=== PATIENT | male | born 1965 | race Caucasian/White ===

== ENCOUNTER → 2020-08-01 10:50 | Outpatient (BNVA) | payer OTHER, SELFPAY | PROVIDERS: PCP Internal Medicine; Referring Provider Internal Medicine; Visit Provider Hospitalist | DX: J45.21 Mild intermittent asthma with (acute) exacerbation (principal); G47.33 Obstructive sleep apnea (adult) (pediatric); M54.41 Lumbago with sciatica, right side; Z99.89 Dependence on other enabling machines and devices; Z79.51 Long term (current) use of inhaled steroids | CPT/HCPCS: 99214 ==

== ENCOUNTER 2020-09-08 08:28 | Emergency (ER) | payer OTHER, SELFPAY ==
[2020-09-08 08:38] VITALS: BP 147/102; PULSE 96; RESP 16; O2SAT 98; BMI 33.7
--- NOTE | 2020-09-08 08:52 | CT_ITS ---
EXAMINATION: CT BRAIN, CT CERVICAL SPINE, CT CHEST, ABDOMEN AND PELVIS WITH CONTRAST. CLINICAL INFORMATION: Fall, head trauma. COMPARISON: CT brain 11/02/2010 TECHNIQUE: 5 mm thin axial and reformatted 2 mm thin coronal images of brain were obtained. Axial 3 mm thin and reformatted 2 mm thin sagittal and coronal images of cervical spine were obtained. DLP 1747. 5 mm thin axial and reformatted 3 minutes in sagittal coronal images of chest, abdomen and pelvis were obtained. The DLP 1460. FINDINGS: BRAIN: There is no acute intra-axial, extra-axial bleed, masses or midline shift. There is no acute infarct in evolution. There is a subtle hypodensity subcortical white matter of left centrum semiovale unchanged from CT brain 11/02/2010. Rest of the perirectal white matter appears unremarkable. The lateral ventricles are symmetrical in size and slightly prominent. Bone windows reveal no calvarial abnormality. There is no scalp soft tissue abnormality. Visualized bilateral mastoid and paranasal sinuses are well-aerated. CERVICAL SPINE: On sagittal reconstructed images is maintained cervical lordosis. The vertebral heights, alignment and disc heights are normal. The large bony bar extending along the posterior longitudinal ligament with thick calcification extending from C2 through C6 vertebra. And resulting in mild canal stenosis at C2-C3, C3-C4 moderate canal stenosis C4-C5, mild canal stenosis C5-C6 and C6-C7 disc levels. Also visualized is anterior longitudinal calcifications of C2-C6 vertebra. There is no visible acute fracture, dislocation or subluxation seen. The craniovertebral junction and the C1-C2 alignment is maintained normal. The prevertebral and paravertebral soft tissues are normal. The thyroid lobes are symmetrical and normal. Bilateral and parotid glands are symmetrical and normal. There is bilateral shotty neck lymph nodes seen. CHEST: The lungs are well-expanded and clear of acute pneumonic process. Note consolidation, contusion or mass seen. The heart size and the great vessels are normal caliber. No aortic dissection or aneurysm seen. Central trachea and the bronchi widely patent. The thyroid lobes are symmetrical and normal. No mediastinal mass or lymphadenopathy seen. There is no pleural effusion, thickening or calcification. The axilla and chest wall appears unremarkable. ABDOMEN AND PELVIS: The liver is diffusely attenuated without any focal lesion. No intrahepatic ductal dilatation. Visualized spleen, pancreas and bilateral adrenal glands are unremarkable. Both kidneys are normal size, shape and position. No radiopaque renal calculi, contusion or hydronephrosis seen. There is a 1.5 cm partially exophytic cyst midpole right kidney. The gallbladder is unremarkable. The bowel gas pattern is nonspecific with scattered diverticuli and stool throughout the colon. No distention seen. The small bowel loops are normal caliber. The appendix is not seen with certainty. No free air or free fluid noted. The abdominal wall appears unremarkable. Imaging through the pelvis reveals mildly enlarged prostate gland. Urinary bladder is unremarkable. No abnormal size pelvic or intraperitoneal lymph nodes seen. The abdominal aorta and the common iliac branches are widely patent. Bone windows reveal no lytic or sclerotic process. There is mild ventral spondylosis throughout dorsal and lumbar spine. There is mild degenerative changes bilateral hip joints slightly greater on the right. CT/CT cervical spine wo con IMPRESSION: No acute intracranial process seen. Focal hypodensity left frontal centrum semiovale unchanged since the last CT brain exam 11/02/2010. 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 Moderate ventral bridging osteophyte and constipation of anterior longitudinal ligament from C3 to C6 vertebra. No acute process in the CT chest, abdomen or pelvis. Small partially exophytic cyst midpole right kidney. Moderate ventral spondylosis dorsal and lumbar spine. No compression fractures seen.
--- NOTE | 2020-09-08 08:53 | ECG_ITS ---
Test Reason : FALL Blood Pressure : / mmHG Vent. Rate : 084 BPM Atrial Rate : 084 BPM P-R Int : 136 ms QRS Dur : 076 ms QT Int : 340 ms P-R-T Axes : 052 026 029 degrees QTc Int : 401 ms Sinus rhythm with Premature atrial complexes Otherwise normal ECG When compared to the previous EKG of No significant changes seen Referred By: Josefa George Electronically Signed By:TONY ALLEN MD
[2020-09-08] MEDS: Morphine Sulfate 2 MG/ML CARTRIDGE IVPUSH ×2 (09:06→10:30)
[2020-09-08 09:24] LABS: MANUAL DIFF FLAG NO
[2020-09-08 09:26] LABS: Basophils Percent Auto 0.3 % (0-2); Eosinophils Absolute Auto 0.1 X10*3/uL (0.0-0.4); Eosinophils Percent Auto 0.8 % (0-4); Hematocrit 39.8 % (42-52); Hemoglobin 13.8 g/dl (14.0-18.0); Imm Gran Abs Auto 0.01 X10*3/uL (0.00-0.03); Imm Gran Pct Auto 0.1 % (0.0-0.4); Lymphocytes Absolute Auto 1.2 X10*3/uL (1.2-4.9); Lymphocytes Percent Auto 13.5 % (20-40); Mean Corpuscular HGB Conc 34.7 g/dl (31.0-36.0); Mean Corpuscular Hemoglobin 29.4 pg (27.0-33.0); Mean Corpuscular Volume 84.7 fL (80-98); Mean Platelet Volume 8.8 fL (9.4-12.4); Monocytes Absolute Auto 0.6 X10*3/uL (0.1-1.2); Monocytes Percent Auto 6.8 % (2-11); Neutrophils Absolute Auto 7.1 X10*3/uL (2.0-8.3); Neutrophils Percent Auto 78.5 % (45-73); Platelet Count 231 X10*3/uL (160-400); Red Cell Distribution Width 12.7 % (11.0-16.0)
[2020-09-08 09:36] LABS: INTERNATIONAL NORM RATIO 1.1 (0.9-1.1); Prothrombin Time 12.6 SEC (10.8-13.0)
--- NOTE | 2020-09-08 09:38 | ED.FALL ---
HPI - Fall General Chief Complaint: Fall Stated Complaint: FALL,HEAD/BACK/CHEST PAIN Time Seen by Provider: 09/08/20 08:31 Source: EMS Mode of arrival: EMS History of Present Illness HPI Narrative: 54-year-old male with a past medical history of asthma, chronic back pain, sciatica, LEVI on CPAP, CVA with left-sided residual deficits, c/o headache, neck/back pain, CP, & abdominal pain s/p fall [employer]. Patient reports was standing urinating, reached for walker and fell backwards/legs gave out due to sciatic pain. Reports fell backwards, hit head, ?LOC, does not remember entire incident. Takes ASA daily. Has been unable to ambulate since incident. Reports CP increased with breathing. Denies symptoms prior to fall including CP/SOB/lightheadedness/dizziness. Denies nausea/vomiting, urinary incontinence/retention. At baseline ambulates with walker complaint: fall Onset (ago): minute(s) Related Data Home Medications Medication Instructions Recorded Confirmed albuterol sulfate mg INHALATION Q6H PRN 08/01/20 08/01/20 albuterol sulfate 90 mcg/actuation 0 mcg INHALATION 08/01/20 08/01/20 aerosol inhaler ascorbic acid (vitamin C) 500 mg 0 mg PO 08/01/20 08/01/20 tablet aspirin 81 mg tablet,delayed 81 mg PO DAILY 08/01/20 08/01/20 release bupropion HCl 300 mg 24 hr tablet, 300 mg PO QAM 08/01/20 08/01/20 extended release cyclobenzaprine 5 mg tablet mg PO Q8H PRN 08/01/20 08/01/20 dicyclomine 10 mg capsule 10 mg PO Q6H PRN 08/01/20 08/01/20 fluticasone propionate 110 0 mcg INHALATION 08/01/20 08/01/20 mcg/actuation HFA aerosol inhaler lisinopril 20 1 tab PO DAILY 08/01/20 08/01/20 mg-hydrochlorothiazide 25 mg tablet lorazepam 0.5 mg tablet 0.5 mg PO BID PRN 08/01/20 08/01/20 memantine 10 mg tablet 10 mg PO BID 08/01/20 08/01/20 metformin 1,000 mg tablet 1,000 mg PO BID 08/01/20 08/01/20 naproxen 500 mg tablet 500 mg PO BID 08/01/20 08/01/20 oxycodone 5 mg tablet 0 mg PO 08/01/20 08/01/20 pravastatin 40 mg tablet 40 mg PO BEDTIME 08/01/20 08/01/20 propranolol 40 mg tablet 40 mg PO DAILY PRN 08/01/20 08/01/20 sennosides 8.6 mg tablet 17.2 mg PO BID 08/01/20 08/01/20 trazodone 100 mg tablet 100 mg PO BEDTIME 08/01/20 08/01/20 umeclidinium 62.5 mcg/actuation 0 inh INHALATION 08/01/20 08/01/20 blister powder for inhalation Previous Rx's Medication Instructions Recorded prednisone 10 mg tablet 10 mg PO DAILY #15 tab 08/01/20 simethicone 125 mg chewable tablet 125 mg PO TID PRN 30 Days #90 tab 08/02/20 plecanatide 3 mg tablet 3 mg PO DAILY #30 tab 08/04/20 methylcellulose (laxative) 500 mg 1,000 mg PO BID #120 tab 09/05/20 tablet acetaminophen [Tylenol Extra 500 mg PO Q6H PRN #20 tab 09/08/20 Strength] cyclobenzaprine 5 mg PO Q8H PRN 5 Days #14 tab 09/08/20 lidocaine [Lidoderm] 1 patch TOPICAL DAILY PRN #30 ea 09/08/20 MDD remove after 12 hours naproxen 500 mg PO BID PRN 10 Days #20 tab 09/08/20 Allergies Allergy/AdvReac Type Severity Reaction Status Date / Time Penicillins [PENICILLINS] Allergy Unknown HIVES Verified 08/01/20 20:22 Review of Systems Review of Systems: Constitutional: No Weight loss, No Fever, No Chills ENT/Mouth: No Hearing loss, No Ear Pain, No Nasal Congestion Eyes: No Eye Pain, No Swelling, No Vision Changes Cardiovascular: + Chest Pain, No SOB, No Dyspnea on Exertion, No Orthopnea, No Edema, No Palpitations Respiratory: No Cough, No Sputum, No Wheezing, No Smoke Exposure Gastrointestinal: No Nausea, No Vomiting, No Diarrhea, +Abdominal pain Genitourinary: No Urinary Frequency, No Hematuria,No Urinary Incontinence, No Urgency, No Flank Pain, No Urinary Flow Changes Musculoskeletal: + joint pain, No Myalgias, No Joint Swelling Skin: No Skin Lesions, No rash Neuro: No Weakness, + Numbness, No Paresthesias, + Loss of Consciousness, No Dizziness, + Headache Yes all other systems are reviewed and are negative [facility] Past Medical History Attestation statement: The following information was validated with the patient. Medical History (Updated 09/08/20 @ 16:24 by PHILIP Ulrich) Asthma Back pain LEVI on CPAP Family History Family History (Updated 08/01/20 @ 20:23 by Kieran Mcnamara MD) Son No problems noted. Social History Social History (Updated 08/01/20 @ 11:22 by Gabby Dodge MA) Alcohol intake: never Smoking Status: Never smoker Use of substances other than those prescribed or required for medical reasons: No Advance Directives: No Advance Directives Information Provided: No Physical Exam Vital Signs: Vital Signs: Last Vital Signs Temp 97.6 F 09/08/20 15:16 Pulse 87 09/08/20 15:16 Resp 16 09/08/20 15:16 BP 116/72 09/08/20 15:16 Pulse Ox 98 09/08/20 15:16 Body Mass Index 33.7 Const: Other: in pain General: cooperative and healthy appearing Orientation/consciousness: patient oriented x3 Limitations: no limitations HENMT: Head: Yes normal to inspection and Yes No palpable skull fracture present Ears: hearing grossly normal bilaterally General nose exam: Normal external nose present Face and sinus: Yes normal facial exam Mouth: Normal oral and palatal mucosa present Throat: Yes posterior oropharynx normal and Yes uvula midline Eyes: General: appearance normal, both eyes and all related structures Pupils: Equal, round and reactive pupils present EOM: EOMs intact bilaterally Neck: Other: C-collar in place. + midline cervical spinous tenderness Neck: Yes normal visual inspection and Yes no meningeal signs Chest: Other: + nonlocalized bilateral anterior chest tenderness and sternal chest ttp, no crepitus or deformity Chest palpation & inspection: normal inspection of the chest and no crepitus Resp: Effort & Inspection: normal respiratory effort Cardio: Rate: regular rate Heart sounds: S1 normal heart sound present and S2 normal heart sound present Peripheral pulses: Peripheral pulses 2+ throughout GI: Inspection: Yes normal to inspection Palpation (GI): Soft to palpation, Tenderness to palpation present (GI) in the epigastrum, in the RLQ and in the LUQ, no guarding and not rigid Back/Spine/Pelvis: Other: No midline lumbar spinous tenderness. + midline upper thoracic ttp with swelling noted Skin: Rashes: no rashes Wounds: no wounds Neuro: Other: +LUE and LLE with decreased strength (baseline L sided weakness from prior CVA-reportedly worse than baseline per patient) +LLE decreased sensation to light touch (worse than baseline deficits from CVA per patient) No saddle anesthesia General: patient oriented x3, tone normal, no meningeal signs, no focal motor deficits and CN's II-XI intact bilaterally Cranial nerves: Yes Equal, round and reactive pupils present Cognition (Neuro): normal cognition Coordination: [id number] test normal Extrem: Other: pelvis stable General: Yes normal to inspection Course Course Course Narrative: -labs unremarkable, initial troponin 3.8 > will obtain 3 hour repeat -Head CT and C-spine CT w/o acute findings -no acute process in the CT chest abdomen or pelvis > imaging results discussed with patient in sign language interpreter. Patient is still reporting a lot of pain. Will give pain medication, obtain PT/case management evaluation -patient was evaluated by physical therapy recommended STR. luncheonette manager working on placement. Patient sitting more comfortably in the ED after muscle relaxer -2nd troponin negative. Patient now refusing STR. Will DC home. Son is coming to pick him up from ED. Case management set up home PT MDM - Fall MDM Narrative Medical decision making narrative: 54-year-old male with a past medical history of asthma, chronic back pain, sciatica, LEVI on CPAP, CVA with left-sided residual deficits, c/o headache, neck/back pain, CP, & abdominal pain s/p fall [employer],+ hit head, ?LOC. On exam hypertensive, in pain, midline cervical/thoracic spinous tenderness noted, chest wall tenderness, abdomen soft with diffuse tenderness, physical exam as above. Bedside FAST negative for FF. Concern for fractures vs ICH vs intra-abdominal injury. Rule out cord compression, low concern for cauda equina. Rule out metabolic/infectious etiology Plan: EKG, labs,, pain management, reassess Lab Data Result diagrams: 09/08/20 09:18 09/08/20 09:18 Labs: Lab Results 09/08/20 09/08/20 09/08/20 Range/Units 09:18 09:18 09:18 WBC 9.0 (4.8-10.8) X10*3/uL RBC 4.70 (4.60-5.80) X10*6/uL Hgb 13.8 L (14.0-18.0) g/dl Hct 39.8 L (42-52) % MCV 84.7 (80-98) fL MCH 29.4 (27.0-33.0) pg MCHC 34.7 (31.0-36.0) g/dl RDW 12.7 (11.0-16.0) % Plt Count 231 (160-400) X10*3/uL MPV 8.8 L (9.4-12.4) fL Immature Gran % (Auto) 0.1 (0.0-0.4) % Neut % (Auto) 78.5 H (45-73) % Lymph % (Auto) 13.5 L (20-40) % Stanley % (Auto) 6.8 (2-11) % Eos % (Auto) 0.8 (0-4) % Baso % (Auto) 0.3 (0-2) % Lymph # (Auto) 1.2 (1.2-4.9) X10*3/uL Stanley # (Auto) 0.6 (0.1-1.2) X10*3/uL Eos # (Auto) 0.1 (0.0-0.4) X10*3/uL Baso # (Auto) 0.0 (0.0-0.2) X10*3/uL Abs Immat Gran (auto) 0.01 (0.00-0.03) X10*3/uL Absolute Neuts (auto) 7.1 (2.0-8.3) X10*3/uL Absolute Nucleated RBC 0.000 (0.0-0.012) X10*3/uL Nucleated RBC % (auto) 0.0 (0.0-0.2) /100WBC PT 12.6 (10.8-13.0) SEC INR 1.1 (0.9-1.1) APTT 30.2 (24.1-38.0) SEC Sodium 136 (135-145) mmol/L Potassium 4.3 (3.3-5.1) mmol/l Chloride 97 (96-108) mmol/L Carbon Dioxide 30 H (22-29) mmol/L Anion Gap 13 (12-20) BUN 20 H (9-16) mg/dL Creatinine 0.94 (0.5-1.4) mg/dL Estim Creat Clear Calc 93.6 Estimated GFR > 60 Random Glucose 132 H (60-115) mg/dL Calcium 9.3 (8.4-10.2) mg/dL Magnesium (1.6-2.6) mg/dL Total Bilirubin 1.4 H (0.0-1.0) mg/dL Direct Bilirubin 0.5 (0.0-0.5) mg/dL AST 21 (5-37) U/L ALT 29 (0-40) U/L Alkaline Phosphatase 36 L (39-117) U/L Troponin I High Sens (<3.5-35.0) ng/L Total Protein 7.2 (6.5-8.0) g/dL Albumin 4.5 (3.5-5.0) g/dL Lipase 23 (8-78) U/L COVID-19 (ANDREINA) (Negative) COVID-19 Clin Com 09/08/20 09/08/20 09/08/20 Range/Units 09:18 09:18 14:20 WBC (4.8-10.8) X10*3/uL RBC (4.60-5.80) X10*6/uL Hgb (14.0-18.0) g/dl Hct (42-52) % MCV (80-98) fL MCH (27.0-33.0) pg MCHC (31.0-36.0) g/dl RDW (11.0-16.0) % Plt Count (160-400) X10*3/uL MPV (9.4-12.4) fL Immature Gran % (Auto) (0.0-0.4) % Neut % (Auto) (45-73) % Lymph % (Auto) (20-40) % Stanley % (Auto) (2-11) % Eos % (Auto) (0-4) % Baso % (Auto) (0-2) % Lymph # (Auto) (1.2-4.9) X10*3/uL Stanley # (Auto) (0.1-1.2) X10*3/uL Eos # (Auto) (0.0-0.4) X10*3/uL Baso # (Auto) (0.0-0.2) X10*3/uL Abs Immat Gran (auto) (0.00-0.03) X10*3/uL Absolute Neuts (auto) (2.0-8.3) X10*3/uL Absolute Nucleated RBC (0.0-0.012) X10*3/uL Nucleated RBC % (auto) (0.0-0.2) /100WBC PT (10.8-13.0) SEC INR (0.9-1.1) APTT (24.1-38.0) SEC Sodium (135-145) mmol/L Potassium (3.3-5.1) mmol/l Chloride (96-108) mmol/L Carbon Dioxide (22-29) mmol/L Anion Gap (12-20) BUN (9-16) mg/dL Creatinine (0.5-1.4) mg/dL Estim Creat Clear Calc Estimated GFR Random Glucose (60-115) mg/dL Calcium (8.4-10.2) mg/dL Magnesium 1.6 (1.6-2.6) mg/dL Total Bilirubin (0.0-1.0) mg/dL Direct Bilirubin (0.0-0.5) mg/dL AST (5-37) U/L ALT (0-40) U/L Alkaline Phosphatase (39-117) U/L Troponin I High Sens 3.8 < 3.5 (<3.5-35.0) ng/L Total Protein (6.5-8.0) g/dL Albumin (3.5-5.0) g/dL Lipase (8-78) U/L COVID-19 (ANDREINA) (Negative) COVID-19 Clin Com 09/08/20 Range/Units 15:19 WBC (4.8-10.8) X10*3/uL RBC (4.60-5.80) X10*6/uL Hgb (14.0-18.0) g/dl Hct (42-52) % MCV (80-98) fL MCH (27.0-33.0) pg MCHC (31.0-36.0) g/dl RDW (11.0-16.0) % Plt Count (160-400) X10*3/uL MPV (9.4-12.4) fL Immature Gran % (Auto) (0.0-0.4) % Neut % (Auto) (45-73) % Lymph % (Auto) (20-40) % Stanley % (Auto) (2-11) % Eos % (Auto) (0-4) % Baso % (Auto) (0-2) % Lymph # (Auto) (1.2-4.9) X10*3/uL Stanley # (Auto) (0.1-1.2) X10*3/uL Eos # (Auto) (0.0-0.4) X10*3/uL Baso # (Auto) (0.0-0.2) X10*3/uL Abs Immat Gran (auto) (0.00-0.03) X10*3/uL Absolute Neuts (auto) (2.0-8.3) X10*3/uL Absolute Nucleated RBC (0.0-0.012) X10*3/uL Nucleated RBC % (auto) (0.0-0.2) /100WBC PT (10.8-13.0) SEC INR (0.9-1.1) APTT (24.1-38.0) SEC Sodium (135-145) mmol/L Potassium (3.3-5.1) mmol/l Chloride (96-108) mmol/L Carbon Dioxide (22-29) mmol/L Anion Gap (12-20) BUN (9-16) mg/dL Creatinine (0.5-1.4) mg/dL Estim Creat Clear Calc Estimated GFR Random Glucose (60-115) mg/dL Calcium (8.4-10.2) mg/dL Magnesium (1.6-2.6) mg/dL Total Bilirubin (0.0-1.0) mg/dL Direct Bilirubin (0.0-0.5) mg/dL AST (5-37) U/L ALT (0-40) U/L Alkaline Phosphatase (39-117) U/L Troponin I High Sens (<3.5-35.0) ng/L Total Protein (6.5-8.0) g/dL Albumin (3.5-5.0) g/dL Lipase (8-78) U/L COVID-19 (ANDREINA) Negative (Negative) COVID-19 Clin Com See Note Discharge Plan Discharge Clinical Impression: Atypical chest pain, Back pain, Acute neck pain, Fall Patient Disposition: Home, Self-Care Instructions: Musculoskeletal Pain (ED) Additional Instructions: [facility] [address] [address] Your blood work and imaging studies were unremarkable today in the ED YOU NEED TO FOLLOW-UP WITH A SPINE DOCTOR Your pain is likely musculoskeletal Flexeril is a muscle relaxer, take at night as it makes you drowsy, do not drive, drink alcohol, or operate machinery while taking it Naproxen as an anti-inflammatory / pain medication, take with food Lidoderm patches are numbing patches, apply to painful area In addition take Tylenol at home If symptoms persist or worsen, pain becomes unbearable, you developed urinary retention or incontinence, or weakness return to the ED Dannielle an?lisis de martin y estudios de im?genes no fueron notables hoy en el servicio de urgencias NECESITA SEGUIMIENTO CON UN M?DICO DE COLUMNA Es probable que hall dolor sea musculoesquel?cas Flexeril es un relajante muscular, t?santana por la noche ya que le produce somnolencia, no conduzca, no martinez alcohol ni maneje maquinaria mientras lo jose. Naproxeno mary medicamento antiinflamatorio / analg?sico, lori con alimentos. Los parches de Lidoderm son parches adormecedores, se aplican al ?jovanny dolorida Adem?s, tome Tylenol en casa. Si los s?ntomas persisten o empeoran, el dolor se vuelve insoportable, desarroll? retenci?n urinaria o incontinencia o debilidad regrese al servicio de urgencias Prescriptions: New acetaminophen [Tylenol Extra Strength] 500 mg tablet 500 mg PO Q6H PRN (Reason: pain or fever) Qty: 20 RF: 0 lidocaine [Lidoderm] 5 % adhesive patch,medicated 1 patch topical DAILY MDD remove after 12 hours PRN (Reason: pain) Qty: 30 RF: 0 naproxen 500 mg tablet 500 mg PO BID PRN (Reason: pain) 10 Days Qty: 20 RF: 0 cyclobenzaprine 5 mg tablet 5 mg PO Q8H PRN (Reason: pain (scale score 7-10)) 5 Days Qty: 14 RF: 0 No Action simethicone 125 mg tablet,chewable 125 mg PO TID PRN (Reason: abdominal distention) 30 Days Qty: 90 RF: 3 plecanatide [Trulance] 3 mg tablet 3 mg PO DAILY Qty: 30 RF: 1 methylcellulose (laxative) [Fiber Laxative (methylcellulo)] 500 mg tablet 1,000 mg PO BID Qty: 120 RF: 1 Incruse Ellipta 62.5 mcg/actuation blister with device 0 inh inhalation RF: 0 albuterol sulfate 90 mcg/actuation HFA aerosol inhaler 0 mcg inhalation RF: 0 ascorbic acid (vitamin C) 500 mg tablet 0 mg PO RF: 0 bupropion HCl 300 mg tablet extended release 24 hr 300 mg PO QAM RF: 0 Flovent HFA 110 mcg/actuation HFA aerosol inhaler 0 mcg inhalation RF: 0 dicyclomine 10 mg capsule 10 mg PO Q6H PRNRF: 0 metformin 1,000 mg tablet 1,000 mg PO BID RF: 0 trazodone 100 mg tablet 100 mg PO BEDTIME RF: 0 lorazepam 0.5 mg tablet 0.5 mg PO BID PRNRF: 0 propranolol 40 mg tablet 40 mg PO DAILY PRNRF: 0 lisinopril-hydrochlorothiazide 20-25 mg tablet 1 tab PO DAILY RF: 0 pravastatin 40 mg tablet 40 mg PO BEDTIME RF: 0 cyclobenzaprine 5 mg tablet PO Q8H PRN (Reason: muscle spasm) RF: 0 oxycodone 5 mg tablet 0 mg PO RF: 0 memantine 10 mg tablet 10 mg PO BID RF: 0 aspirin 81 mg tablet,delayed release (DR/EC) 81 mg PO DAILY RF: 0 albuterol sulfate 2.5 mg /3 mL (0.083 %) solution for nebulization inhalation Q6H PRNRF: 0 sennosides 8.6 mg tablet 17.2 mg PO BID RF: 0 naproxen 500 mg tablet 500 mg PO BID RF: 0 prednisone 10 mg tablet 10 mg PO DAILY Qty: 15 RF: 0 Referrals: [facility] [Outside] - 2 days Lit Salinas MD [Primary Care Provider] - 2 days Print Language: Marshallese
[2020-09-08 09:39] LABS: Partial Thromboplastin Time 30.2 SEC (24.1-38.0)
[2020-09-08 10:00] LABS: Alanine Aminotransferase 29 U/L (0-40); Albumin Level 4.5 g/dL (3.5-5.0); Alkaline Phosphatase 36 U/L (39-117); Anion Gap 13 (12-20); Aspartate Amino Transferase 21 U/L (5-37); Bilirubin Direct 0.5 mg/dL (0.0-0.5); Bilirubin Total 1.4 mg/dL (0.0-1.0); Blood Urea Nitrogen 20 mg/dL (9-16); Calcium 9.3 mg/dL (8.4-10.2); Carbon Dioxide 30 mmol/L (22-29); Chloride 97 mmol/L (96-108); Creatinine Clr Calc Pharmacy 93.6; Estimated Glomerular Filt Rate > 60; Glucose Random 132 mg/dL (60-115); Lipase 23 U/L (8-78); Magnesium 1.6 mg/dL (1.6-2.6); Potassium 4.3 mmol/l (3.3-5.1); Sodium 136 mmol/L (135-145); Total Protein 7.2 g/dL (6.5-8.0)
[2020-09-08 10:03] LABS: Troponin-I High Sensitivity 3.8 ng/L (<3.5-35.0)
[2020-09-08] MEDS: Acetaminophen 325 MG TABLET 650 MG PO ×2 (10:30→13:44)
[2020-09-08 10:39] VITALS: BP 137/84; PULSE 86; RESP 18; O2SAT 97
[2020-09-08] MEDS: iohexoL 350 MG/ML 100 ML INFUS..BTL IV (12:08)
--- NOTE | 2020-09-08 13:12 | MHC.CM.ED ---
Obtained [facility] PASRR letter. [facility] has auth. Patient can leave at 2pm. [facility] booked. [facility] with chart. Attempted to notify patient. He is currently sleeping. NAVJOT King and Mars MONTOYA aware. Continue to monitor for d/c needs.
[2020-09-08] MEDS: Lidocaine 4 % Patch ADH..PATCH 1 PATCH TRANSDERMA (13:44)
[2020-09-08] MEDS: Cyclobenzaprine HCl 10 MG TABLET PO (13:44)
[2020-09-08] MEDS: Ketorolac Tromethamine 15 MG/ML VIAL IVPUSH (13:44)
[2020-09-08 14:25] VITALS: BP 137/84; PULSE 86; O2SAT 97
[2020-09-08 15:10] LABS: Troponin-I High Sensitivity < 3.5 ng/L (<3.5-35.0)
[2020-09-08 15:16] VITALS: BP 116/72; PULSE 87; RESP 16; TEMP 36.4; O2SAT 98
[2020-09-08 15:44] LABS: COVID-19 Test Negative (Negative); IDNOW Serial# 9DD0AD1C
--- NOTE | 2020-09-08 15:44 | MHC.CM.ED ---
Patient came to ER after a fall at home. Worl up essentially negative. Physical therapy eval completed. Short term rehab is recommended. Met with patient and park interpreter. Patient lives with his , ambulates with a walker, and has a BOXING AND PRESSING SUPERVISOR from [facility] via [facility]. PCP verified. Patient denies having a HCP. Information provided. Patient not interested in completing one at this time. Patient is requesting to go home. He will have his son transport him home. Spoke with Krysta at [facility]. They will authorize [facility] for [facility]. [facility] [place] Patient, Josefa PALACIOS and Mars MONTOYA aware. Continue to monitor for d/c needs.
--- NOTE | 2020-09-09 10:52 | MHC.CM.ED ---
After patient was discharged, [facility] notified [facility]w that they would not be able accept patient at this time. Referral broadcasted in allscripts. [facility] was going to accept patient. However, he hasn't seen his PCP since April. He has an appointment scheduled with his PCP on 09/20. [facility] will follow up with PCP after that appointment to start services.
== END 2020-09-08 17:13 | disposition home or self-care (01) ==
PROVIDERS: Physician Assistant; Emergency Provider Emergency Medicine; PCP Internal Medicine
DX: R07.89 Other chest pain (principal); M54.2 Cervicalgia; M54.5 Low back pain; Z91.81 History of falling; Z20.828 Contact with and (suspected) exposure to other viral communicable diseases; Z79.899 Other long term (current) drug therapy
CPT/HCPCS: 36415; 70450; 71260; 72125; 74177; 80048; 80076; 83690; 83735; 84484; 85025; 85610; 85730; 87635; 93005; 96374; 96375; 96376; 97161; 99284; J1885; J2270; Q9967

== ENCOUNTER → 2020-09-22 08:36 | Outpatient (BNVA) | payer OTHER, SELFPAY | PROVIDERS: PCP Internal Medicine; Visit Provider Nurse Practitioner | DX: Z13.89 Encounter for screening for other disorder (principal) | CPT/HCPCS: Q3014 ==

== ENCOUNTER → 2020-11-18 09:44 | Outpatient (BNVA) | payer OTHER, SELFPAY | PROVIDERS: PCP Internal Medicine; Visit Provider Nurse Practitioner | DX: Z76.89 Persons encountering health services in other specified circumstances (principal) | CPT/HCPCS: Q3014 ==

== ENCOUNTER → 2021-01-30 13:57 | Outpatient (BNVA) | payer OTHER, SELFPAY | PROVIDERS: PCP Internal Medicine; Visit Provider Hospitalist | DX: J45.21 Mild intermittent asthma with (acute) exacerbation (principal); G47.33 Obstructive sleep apnea (adult) (pediatric); Z99.89 Dependence on other enabling machines and devices; Z79.899 Other long term (current) drug therapy | CPT/HCPCS: 99212 ==

== ENCOUNTER 2021-03-14 08:01 | Outpatient (REF) | payer OTHER, SELFPAY | END 2021-03-14 08:02 | disposition home or self-care (01) | LOC: HO.LAB 08:01 | PROVIDERS: PCP Internal Medicine; Visit Provider Nurse Practitioner Family | DX: G89.4 Chronic pain syndrome (principal); M51.36 Other intervertebral disc degeneration, lumbar region; M96.1 Postlaminectomy syndrome, not elsewhere classified; Z79.891 Long term (current) use of opiate analgesic | CPT/HCPCS: 99212 ==

== ENCOUNTER → 2021-03-28 08:17 | Outpatient (BNVA) | payer OTHER, SELFPAY | PROVIDERS: PCP Internal Medicine; Visit Provider Nurse Practitioner Family | DX: K58.2 Mixed irritable bowel syndrome (principal); K21.9 Gastro-esophageal reflux disease without esophagitis; D12.6 Benign neoplasm of colon, unspecified; R14.0 Abdominal distension (gaseous); M51.36 Other intervertebral disc degeneration, lumbar region; M96.1 Postlaminectomy syndrome, not elsewhere classified; G89.4 Chronic pain syndrome | CPT/HCPCS: 99212; Q3014 ==

== ENCOUNTER → 2021-04-14 11:10 | Outpatient (BNVA) | payer OTHER, SELFPAY | PROVIDERS: PCP Internal Medicine; Visit Provider Nurse Practitioner Family | DX: M51.36 Other intervertebral disc degeneration, lumbar region (principal); M96.1 Postlaminectomy syndrome, not elsewhere classified; G89.4 Chronic pain syndrome | CPT/HCPCS: Q3014 ==

== ENCOUNTER → 2021-05-11 10:43 | Outpatient (BNVA) | payer OTHER, SELFPAY | PROVIDERS: PCP Internal Medicine; Referring Provider Internal Medicine; Visit Provider Nurse Practitioner | DX: K58.2 Mixed irritable bowel syndrome (principal); K21.9 Gastro-esophageal reflux disease without esophagitis; R14.0 Abdominal distension (gaseous); D12.6 Benign neoplasm of colon, unspecified | CPT/HCPCS: 99212 ==

== ENCOUNTER 2021-05-25 15:54 | Emergency (ER) | payer OTHER, SELFPAY ==
--- NOTE | ~2021-05-25 | XR_ITS ---
EXAMINATION: XR CHEST CLINICAL INFORMATION: Chest pain. COMPARISON: Chest radiographs dated 05/30/2020. TECHNIQUE: Frontal view of the chest was obtained. FINDINGS: No significant abnormality is noted involving the heart, lungs, mediastinum, bony thorax or soft tissues. There are postoperative changes of the left lower cervical spine. XR/XR chest 1V IMPRESSION: No active cardiopulmonary disease
--- NOTE | ~2021-05-25 | CT_ITS ---
EXAMINATION: CT HEAD WITHOUT CONTRAST CLINICAL INFORMATION: New visual changes, numbness of left side of head. COMPARISON: 09/08/[address] TECHNIQUE: Contiguous axial imaging was performed from the skull base to vertex without intravenous administration of contrast. Coronal and sagittal reformatted images were obtained. This CT examination was performed using dose optimization techniques as appropriate, variously including the following: *Automated exposure control *Adjustment of mA and/or kV according to patient size (this includes techniques or standardized protocols for targeted exams where dose is matched to indication/reason for exam; i.e. extremities or head) *Use of iterative reconstruction technique DLP: 931.84 mGy-cm FINDINGS: There is no evidence of acute intracranial hemorrhage or territorial infarction. No abnormal mass effect or midline shift is seen. [place] to white matter differentiation is well preserved. No extra-axial fluid collections are identified. The ventricles are normal in size. There is no abnormal attenuation within the brain parenchyma. The osseous structures and soft tissues are normal. The mastoid air cells and visualized portions of the paranasal sinuses are well aerated. CT/CT head/brain wo con IMPRESSION: No acute intracranial pathology. Please refer to the report from the CTA of the head from today for more detailed findings.
--- NOTE | ~2021-05-25 | CT_ITS ---
EXAMINATION: CT ANGIOGRAM HEAD CT ANGIOGRAM NECK CLINICAL INFORMATION: Numbness along the left side of head and left arm. History of cerebrovascular accident. COMPARISON: CT head from 05/25/2021. Brain MRI from 02/02/2010. CT neck from 12/12/2007. TECHNIQUE: Initial noncontrast game farm helper imaging of the head and neck was performed. Comparison is made with noncontrast head CT from earlier today. Test bolus sequences followed by intravenous administration 70 mL of Omnipaque 350. Helical imaging was performed in the axial plane from the aortic arch to the skull vertex. The data was processed at the system technologist's workstation for generation of MIP sequences. Angled MIPs and volume rendered reformatted images were also generated at an offline 3D workstation. Stenoses are assessed in accordance with NASCET criteria unless otherwise indicated. This CT examination was performed using dose optimization techniques as appropriate, variously including the following: *Automated exposure control. *Adjustment of mA and/or kV according to patient size (this includes techniques or standardized protocols for targeted exams where dose is matched to indication/reason for exam; i.e. extremities or head). *Use of iterative reconstruction technique. DLP: 2518 mGy-cm FINDINGS: CT Head: There is no evidence of acute intracranial hemorrhage or edematous territorial infarction. A few foci of hypoattenuation in the periventricular and deep white matter are consistent with mild microangiopathy. Madison-white matter differentiation is preserved. The ventricles are normal in size and configuration. No evidence for obstructive hydrocephalus. No abnormal mass effect or midline shift. No extra-axial fluid collections. No pathologic intra-axial arterial enhancement. No acute soft tissue or osseous abnormalities. Multifocal maxillary and mandibular odontogenic an intimal ulcerations and periapical lucencies. Moderate mucosal thickening of the paranasal sinuses. The mastoid air cells and middle ear cavities are clear. CT Neck: The thyroid gland and remaining cervical soft tissues are within normal limits. Changes of right-sided C4, C6, and C7 hinge laminoplasties. Changes of right-sided C5 hemilaminectomy. Extensive ossification of the posterior longitudinal ligament again demonstrated from C2-T2. Moderately prominent bridging anterior thoracic kyphosis at C3-C7. The demonstrated acute fracture or traumatic subluxation of the cervical spine. CT Upper Chest: The visualized lung apices and upper mediastinum are within normal limits. Neck CTA: Aortic Arch: Normal contour and caliber. Classic 3 vessel branching pattern of the aortic arch. Great Vessel Origins: No significant stenosis of the branch origins. Right Common Carotid Artery: No focal stenosis or occlusion. Cervical Right Internal Carotid Artery: Normal opacification without focal stenosis or occlusion. Left Common Carotid Artery: No focal stenosis or occlusion. Cervical Left Internal Carotid Artery: Normal opacification without focal stenosis or occlusion. Cervical Right Vertebral Artery: Dominant. No focal stenosis or occlusion. Cervical Left Vertebral Artery: No focal stenosis or occlusion. Brain CTA: Intracranial Internal Carotid Arteries: No focal stenosis or occlusion. Sessile aneurysm along the superior margin of the proximal petrous segment of the left ICA, measuring 1 cm long by 0.4 cm in depth (image [id number]). Right Anterior Cerebral Artery: The A1 segment is diminutive. Normal opacification of the distal ELIOT segments. Left Anterior Cerebral Artery: Normal A1 segment. Normal opacification of the distal ELIOT segments. Anterior Communicating Artery: Normal. Right Middle Cerebral Artery: Normal M1 segment of the MCA without focal stenosis or occlusion. Normal arborization of the distal segments. Left Middle Cerebral Artery: Normal M1 segment of the MCA without focal stenosis or occlusion. Normal arborization of the distal segments. Right Vertebral Artery: Normal V4 segment. Normal opacification of the proximal segments of the posterior inferior cerebellar artery. Left Vertebral Artery: Diminutive V4 segment. Normal opacification of the proximal segments of the posterior inferior cerebellar artery. Basilar Artery: Normal without focal stenosis or occlusion. Normal appearance of the proximal superior cerebellar arteries. Right Posterior Cerebral Artery: Normal P1 segment. Normal opacification of the distal CD MANUFACTURING SUPERVISOR segments. Left Posterior Cerebral Artery: Normal P1 segment. Normal opacification of the distal CD MANUFACTURING SUPERVISOR segments. CT/CT angio head neck stroke IMPRESSION: 1. CTA of the head and neck without proximal occlusion or flow-limiting stenosis. 2. The brain parenchyma is better evaluated on concurrent CT of the head. Within the limitations of this exam, there is no evidence of new intracranial hemorrhage or abnormal mass effect. Mild underlying microangiopathy. 3. 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 Posterior decompression of C4-C7 with right-sided change laminoplasties. 4. 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 This appears relatively unchanged compared to exam from 2008. This critical result was discussed with PHILIP Stevens at 20:01 on 05/25/2021 and it was ascertained that the content and urgency of the report was understood at the time of direct communication.
[2021-05-25 16:27] VITALS: BP 155/124; PULSE 86; RESP 16; TEMP 37.1; O2SAT 98; BMI 33.5
[2021-05-25 16:57] VITALS: BP 166/101; PULSE 83; RESP 16; TEMP 36.3; O2SAT 97
[2021-05-25 17:02] LABS: MANUAL DIFF FLAG NO
[2021-05-25 17:08] LABS: Basophils Percent Auto 0.3 % (0-2); Eosinophils Absolute Auto 0.1 X10*3/uL (0.0-0.4); Eosinophils Percent Auto 0.7 % (0-4); Hematocrit 38.3 % (42-52); Hemoglobin 13.2 g/dl (14.0-18.0); Imm Gran Abs Auto 0.03 X10*3/uL (0.00-0.03); Imm Gran Pct Auto 0.3 % (0.0-0.4); Lymphocytes Absolute Auto 1.2 X10*3/uL (1.2-4.9); Mean Corpuscular HGB Conc 34.5 g/dl (31.0-36.0); Mean Corpuscular Hemoglobin 28.5 pg (27.0-33.0); Mean Corpuscular Volume 82.7 fL (80-98); Monocytes Absolute Auto 0.8 X10*3/uL (0.1-1.2); Monocytes Percent Auto 7.7 % (2-11); Neutrophils Absolute Auto 8.1 X10*3/uL (2.0-8.3); Platelet Count 243 X10*3/uL (160-400); Red Blood Count 4.63 X10*6/uL (4.60-5.80); White Blood Count 10.3 X10*3/uL (4.8-10.8)
[2021-05-25 17:38] LABS: Anion Gap 18 (12-20); Blood Urea Nitrogen 15 mg/dL (9-16); Calcium 9.4 mg/dL (8.4-10.2); Carbon Dioxide 24 mmol/L (22-29); Chloride 100 mmol/L (96-108); Creatinine Clr Calc Pharmacy 110.7; Estimated Glomerular Filt Rate > 60; Glucose Random 70 mg/dL (60-115); Potassium 4.5 mmol/L (3.3-5.1); Sodium 137 mmol/L (135-145)
[2021-05-25 17:45] LABS: Troponin-I High Sensitivity < 3.5 ng/L (<3.5-35.0)
--- NOTE | 2021-05-25 19:01 | ED.CHESTPAIN ---
HPI - Chest Pain General Chief Complaint: Chest Pain Stated Complaint: chest pain Time Seen by Provider: 05/25/21 17:48 Source: patient Mode of arrival: EMS Limitations: language barrier History of Present Illness HPI narrative: 55-year-old male presents with intermittent chest pressure for the last 3 days. Patient also has left arm tingling and heaviness since yesterday. Patient also has tingling on the left side of the top of his head. States he has had blurry vision for the last 3 days. The chest pressure comes and goes, and the episodes lasts for about half an hour. He is diaphoretic, with nausea, and shortness of breath during the episodes. He also experiences palpitations during the episodes. Patient has had chest pain since October due to surgery of his back. However, this chest pain feels different. Chest pressure is worse with exertion. Patient reports even just taking a few steps makes him have chest pressure. Patient also has a history of CVA, and reports feeling weaker on his left side. However, this left arm tingling is new since yesterday. No new neck pain, no new weakness. Patient states he is chronically weak on the left side because of the CVA. Patient has past medical history of HTN, HLD, DM, chronic pain, post-laminectomy syndrome, DISH, GERD, back pain MD complaint: chest pain Onset (ago): day(s) (3) Prior episodes: No Onset: during rest and during exertion Pain location: substernal Pain radiation: left arm Quality: tightness Relieving factors: rest Exacerbating factors: exertion Associated symptoms: diaphoresis and palpitations Treatment prior to arrival: none Risk Factors Coronary artery disease risk factors: diabetes, hyperlipidemia and hypertension Related Data Home Medications Medication Instructions Recorded Confirmed aspirin 81 mg tablet,delayed 81 mg PO DAILY 08/01/20 05/11/21 release bupropion HCl 300 mg 24 hr tablet, 300 mg PO QAM 08/01/20 05/11/21 extended release lisinopril 20 1 tab PO DAILY 08/01/20 05/11/21 mg-hydrochlorothiazide 25 mg tablet lorazepam 0.5 mg tablet 0.5 mg PO BID PRN 08/01/20 05/11/21 memantine 10 mg tablet 10 mg PO BID 08/01/20 05/11/21 metformin 1,000 mg tablet 1,000 mg PO BID 08/01/20 05/11/21 pravastatin 40 mg tablet 40 mg PO BEDTIME 08/01/20 05/11/21 propranolol 40 mg tablet 40 mg PO DAILY PRN 08/01/20 05/11/21 trazodone 100 mg tablet 100 mg PO BEDTIME 08/01/20 05/11/21 albuterol sulfate 90 mcg/actuation 2 inh INHALATION Q8H g 03/28/21 05/11/21 aerosol inhaler fluticasone propionate 110 110 mcg INHALATION BID g 03/28/21 05/11/21 mcg/actuation HFA aerosol inhaler naloxone 4 mg/actuation nasal 4 mg INTRANASAL Q2M PRN 03/28/21 05/11/21 spray (Narcan) umeclidinium 62.5 mcg/actuation 1 inh INHALATION DAILY ea 03/28/21 05/11/21 blister powder for inhalation Previous Rx's Medication Instructions Recorded acetaminophen 500 mg tablet 500 mg PO Q6H PRN #20 tab 09/08/20 (Tylenol Extra Strength) cyclobenzaprine 5 mg tablet 5 mg PO Q8H PRN 5 Days #14 tab 09/08/20 naproxen 500 mg tablet 500 mg PO BID PRN 10 Days #20 tab 09/08/20 budesonide-formoterol HFA 160 2 puff INHALATION BID 30 Days 01/30/21 mcg-4.5 mcg/actuation aerosol #10.2 g inhaler (Symbicort) gabapentin 300 mg capsule 600 mg PO BEDTIME 30 Days #60 cap 01/30/21 pantoprazole 40 mg tablet,delayed 40 mg PO DAILY #90 tab 03/28/21 release ascorbic acid (vitamin C) 500 mg 500 mg PO DAILY #90 tab 04/28/21 tablet ascorbic acid (vitamin C) 500 mg 500 mg PO Q12H #60 tab 05/07/21 tablet,extended release simethicone 180 mg capsule 180 mg PO QID 30 Days #120 cap 05/11/21 Allergies Allergy/AdvReac Type Severity Reaction Status Date / Time Penicillins [PENICILLINS] Allergy Unknown HIVES Verified 05/11/21 10:55 Review of Systems Constitutional: Constitutional: Denies chills, Denies fever(s) and Denies headache(s) Eyes: Eyes: Reports blurry vision, Reports change in vision, Denies photophobia and Denies spots in vision ENT: Denies otalgia, Denies headache(s), Denies nasal congestion, Denies nasal discharge and Denies sore throat Cardiovascular: Cardiovascular: Reports chest pain, Reports chest pain at rest, Reports chest pain with activity, Denies syncope, Denies pedal edema, Denies leg edema, Denies lightheadedness, Denies Loss of Consciousness, Reports palpitations and Reports dyspnea Respiratory: Respiratory: Denies chest congestion, Denies cough and Reports dyspnea Gastrointestinal: Gastrointestinal: Denies abdominal pain, Denies melena, Denies hematochezia, Denies coffee ground emesis, Denies diarrhea, Reports nausea and Denies vomiting Genitourinary: Genitourinary: Reports no additional male genitourinary complaints Musculoskeletal: Musculoskeletal: Reports back pain (chronic), Reports numbness and Reports tingling Integumentary/Breasts: Skin/Breast: Denies erythema and Denies rash Neurologic: Reports Abnormal speech present, Denies syncope, Denies headache(s), Denies focal weakness, Reports numbness, Reports Sensory deficit (Neuro) and Reports tingling Psychiatric: Psychiatric: Reports no additional psychiatric complaints Endocrine: Endocrine: Reports palpitations PMFSH Past Medical History Medical History Asthma Back pain LEVI on CPAP Surgical History History of back surgery (~10/2020) History of esophagogastroduodenoscopy (EGD) Hx of colonoscopy Family History Family History Son No problems noted. Father Stomach cancer Mother Cancer Heart problem Brother Cancer Social History Social History Household Members: Spouse Alcohol intake: never Patient Tobacco Use Status: Never used Tobacco Advance Directives: No Advance Directives Information Provided: No Physical Exam Vital Signs: Vital Signs: Last Vital Signs Temp 97.9 F 05/25/21 20:00 Pulse 76 05/25/21 20:00 Resp 15 05/25/21 20:00 BP 155/94 H 05/25/21 20:00 Pulse Ox 99 05/25/21 20:00 Body Mass Index 33.5 Const: General: cooperative, alert and awake Nutritional Appearance: obese centrally obese Orientation/consciousness: patient oriented x3 Limitations: language barrier HENMT: Head: Yes normal to inspection, Yes No palpable skull fracture present, Yes normocephalic and No scalp tenderness Ears: hearing grossly normal bilaterally and external ears normal General nose exam: Normal external nose present Face and sinus: Yes normal facial exam Mouth: Normal oral and palatal mucosa present Throat: Yes posterior oropharynx normal Eyes: Alignment and Position: alignment normal Conjunctivae: conjunctivae normal Pupils: Equal, round and reactive pupils present EOM: EOMs intact bilaterally and No Nystagmus present Direct Ophthalmoscopy: normal light reflex and No photophobia Neck: Neck: Yes full ROM, Yes no meningeal signs, Yes trachea midline and Yes supple Resp: Effort & Inspection: normal respiratory effort and able to speak in complete sentences Auscultation: clear to auscultation bilaterally, no crackles, no rales, no rhonchi and no wheezes Cardio: Rate: regular rate Rhythm: regular rhythm Heart sounds: S1 normal heart sound present and S2 normal heart sound present GI: Inspection: Yes normal to inspection Palpation (GI): Soft to palpation, nontender, no guarding and not rigid Percussion: Yes normal to percussion Auscultation: normal bowel sounds : General: Yes no CVA tenderness Back/Spine/Pelvis: Back: no CVA tenderness Skin: General skin exam: no rashes or lesions noted and scars (posterior neck) Neuro: Other: 4/5 strength left upper and lower extremities, 5/5 strength upper right and lower right extremities General: patient oriented x3, no meningeal signs and Unable to assess gait Cranial nerves: Yes CN's II-XII intact bilaterally, Yes Facial sensation intact/muscles of mastication intact, Yes Equal, round and reactive pupils present, Yes Bilaterally intact EOM present, Yes Nystagmus not present, Yes Normal facial strength present, Yes Midline tongue present, Yes Ability to bilaterally rotate head present, Yes Ability to bilaterally elevate shoulders present and No Nystagmus present Cognition (Neuro): normal cognition Speech: Abnormal speech present Gait exam (Neuro): Unable to assess gait Sensory Exam: Sensory deficit (Neuro) Deep tendon reflexes (DTR's): Right patellar reflex intensity grade: 1+ and Left patellar reflex intensity grade: 1+ Coordination: [id number] test normal Romberg Test: Negative Pupils: Normal pupillary reactivity/response: bilateral Extrem: General: Yes normal to inspection, Yes full ROM and Yes capillary refill normal Psych: Appearance: grossly normal Affect: normal affect Attitude: cooperative Thought process: Normal thought process present Course Course Course Narrative: 55-year-old male presents for intermittent chest pain for the last 3 days, with numbness and tingling on the left side of his head and his left arm for the last 3 days On exam patient numbness in his left arm, and numbness and tingling on his left side of his head. Patient also has left sided weakness with 4/5 motor strength compared to 5/5 motor strength of patient's right side, and this is NOT NEW, this is s/p CVA. EKG shows sinus tachycardia at 106 with no acute ischemia, patient is mildly hypertensive. Troponin is negative. Chest x-ray is normal. Labs are normal. Gave Tylenol, will do CT head. Patient is tachycardic but not hypoxic. I placed a D-dimer as an add-on lab. D-dimer is negative. CT and CTA shows no large vessel occlusion, no intracranial infarction or hemorrhage, does show very tight spinal canal. Radiologist called and stated this would explain any numbness below the neck but no explanation for numbness above the neck. Pt has been consistently tachycardic in the 110's. On discussion with dispatcher tow truck, patient clarifies that he has had numbness in the left side of his head, but the tingling is new. Consulting Neurology. Discussed with Dr Cantu, Neurology, who felt pt could have outpatient MRI. Pt will also f/u with Cardiology I texted Dr Venegas, Biological Science Aide who will see pt as outpatient MDM - Chest Pain Lab Data Result diagrams: 05/25/21 16:55 05/25/21 16:55 Labs: Lab Results 05/25/21 05/25/21 05/25/21 Range/Units 16:55 16:55 16:55 WBC 10.3 (4.8-10.8) X10*3/uL RBC 4.63 (4.60-5.80) X10*6/uL Hgb 13.2 L (14.0-18.0) g/dl Hct 38.3 L (42-52) % MCV 82.7 (80-98) fL MCH 28.5 (27.0-33.0) pg MCHC 34.5 (31.0-36.0) g/dl RDW 13.0 (11.0-16.0) % Plt Count 243 (160-400) X10*3/uL MPV 9.0 L (9.4-12.4) fL Immature Gran % (Auto) 0.3 (0.0-0.4) % Neut % (Auto) 79.0 H (45-73) % Lymph % (Auto) 12.0 L (20-40) % Childress % (Auto) 7.7 (2-11) % Eos % (Auto) 0.7 (0-4) % Baso % (Auto) 0.3 (0-2) % Lymph # (Auto) 1.2 (1.2-4.9) X10*3/uL Childress # (Auto) 0.8 (0.1-1.2) X10*3/uL Eos # (Auto) 0.1 (0.0-0.4) X10*3/uL Baso # (Auto) 0.0 (0.0-0.2) X10*3/uL Abs Immat Gran (auto) 0.03 (0.00-0.03) X10*3/uL Absolute Neuts (auto) 8.1 (2.0-8.3) X10*3/uL Absolute Nucleated RBC 0.000 (0.0-0.012) X10*3/uL Nucleated RBC % (auto) 0.0 (0.0-0.2) /100WBC PT (9.9-13.0) SEC INR (0.9-1.1) APTT (24.1-38.0) SEC D-Dimer NG/ML Sodium 137 (135-145) mmol/L Potassium 4.5 (3.3-5.1) mmol/L Chloride 100 (96-108) mmol/L Carbon Dioxide 24 (22-29) mmol/L Anion Gap 18 (12-20) BUN 15 (9-16) mg/dL Creatinine 0.81 (0.5-1.4) mg/dL Estim Creat Clear Calc 110.7 Estimated GFR > 60 Random Glucose 70 D (60-115) mg/dL Calcium 9.4 (8.4-10.2) mg/dL Troponin I High Sens < 3.5 (<3.5-35.0) ng/L COVID-19 (ANDREINA) (Negative) COVID-19 Clin Com 05/25/21 05/25/21 05/25/21 Range/Units 19:09 19:09 19:09 WBC (4.8-10.8) X10*3/uL RBC (4.60-5.80) X10*6/uL Hgb (14.0-18.0) g/dl Hct (42-52) % MCV (80-98) fL MCH (27.0-33.0) pg MCHC (31.0-36.0) g/dl RDW (11.0-16.0) % Plt Count (160-400) X10*3/uL MPV (9.4-12.4) fL Immature Gran % (Auto) (0.0-0.4) % Neut % (Auto) (45-73) % Lymph % (Auto) (20-40) % Childress % (Auto) (2-11) % Eos % (Auto) (0-4) % Baso % (Auto) (0-2) % Lymph # (Auto) (1.2-4.9) X10*3/uL Childress # (Auto) (0.1-1.2) X10*3/uL Eos # (Auto) (0.0-0.4) X10*3/uL Baso # (Auto) (0.0-0.2) X10*3/uL Abs Immat Gran (auto) (0.00-0.03) X10*3/uL Absolute Neuts (auto) (2.0-8.3) X10*3/uL Absolute Nucleated RBC (0.0-0.012) X10*3/uL Nucleated RBC % (auto) (0.0-0.2) /100WBC PT 12.9 (9.9-13.0) SEC INR 1.1 (0.9-1.1) APTT 35.4 (24.1-38.0) SEC D-Dimer 215 NG/ML Sodium (135-145) mmol/L Potassium (3.3-5.1) mmol/L Chloride (96-108) mmol/L Carbon Dioxide (22-29) mmol/L Anion Gap (12-20) BUN (9-16) mg/dL Creatinine (0.5-1.4) mg/dL Estim Creat Clear Calc Estimated GFR Random Glucose (60-115) mg/dL Calcium (8.4-10.2) mg/dL Troponin I High Sens (<3.5-35.0) ng/L COVID-19 (ANDREINA) Negative (Negative) COVID-19 Clin Com See Note ECG Data ECG #1: Interpretation: Normal axis, sinus rhythm tachycardic at 1 0 seconds, CO interval 126, QRS 76, QTC 422. No ST elevations or depressions, no T-wave changes. Discharge Plan Discharge Clinical Impression: Trigeminal neuralgia of left side of face Chest pain Qualifiers: Chest pain type: unspecified Qualified Code(s): R07.9 - Chest pain, unspecified Patient Disposition: Home, Self-Care Instructions: Chest Pain (ED) Additional Instructions: Please call Cardiology at [phone] and Neurology at [phone] Please call in both tomorrow, you need follow-up appointments with both specialties within the next week. Neurology will arrange for an outpatient MRI. Please return to the emergency room if you have any weakness on 1 side or the other, if you have any speech changes, facial drooping, worsening chest pain, or any other new or concerning symptoms. Llame a Cardiolog?a al [phone] y a Neurolog?a al [phone] Llame a ambos ma?daniel, necesita citas de seguimiento con ambas especialidades dentro de la pr?xima semana. Neurology organizar? satish resonancia magn?salomón para pacientes ambulatorios. Regrese a la priscilla de emergencias si tiene alguna debilidad en un lado o en el otro, si tiene alg?n cambio en el habla, declive facial, empeoramiento del dolor en el pecho o cualquier otro s?ntoma nuevo o preocupante. Prescriptions: No Action acetaminophen [Tylenol Extra Strength] 500 mg tablet 500 mg PO Q6H PRN (Reason: pain or fever) Qty: 20 RF: 0 naproxen 500 mg tablet 500 mg PO BID PRN (Reason: pain) 10 Days Qty: 20 RF: 0 cyclobenzaprine 5 mg tablet 5 mg PO Q8H PRN (Reason: pain (scale score 7-10)) 5 Days Qty: 14 RF: 0 Narcan 4 mg/actuation spray,non-aerosol 4 mg intranasal Q2M PRNRF: 0 bupropion HCl 300 mg tablet extended release 24 hr 300 mg PO QAM RF: 0 metformin 1,000 mg tablet 1,000 mg PO BID RF: 0 trazodone 100 mg tablet 100 mg PO BEDTIME RF: 0 lorazepam 0.5 mg tablet 0.5 mg PO BID PRNRF: 0 propranolol 40 mg tablet 40 mg PO DAILY PRNRF: 0 lisinopril-hydrochlorothiazide 20-25 mg tablet 1 tab PO DAILY RF: 0 pravastatin 40 mg tablet 40 mg PO BEDTIME RF: 0 memantine 10 mg tablet 10 mg PO BID RF: 0 aspirin 81 mg tablet,delayed release (DR/EC) 81 mg PO DAILY RF: 0 albuterol sulfate 90 mcg/actuation HFA aerosol inhaler 2 inh inhalation Q8H RF: 0 fluticasone propionate 110 mcg/actuation HFA aerosol inhaler 110 mcg inhalation BID RF: 0 umeclidinium 62.5 mcg/actuation blister with device 1 inh inhalation DAILY RF: 0 ascorbic acid (vitamin C) 500 mg tablet 500 mg PO DAILY Qty: 90 RF: 2 ascorbic acid (vitamin C) 500 mg Tablet Extended Release 500 mg PO Q12H Qty: 60 RF: 4 pantoprazole 40 mg tablet,delayed release (DR/EC) 40 mg PO DAILY Qty: 90 RF: 2 simethicone 180 mg capsule 180 mg PO QID 30 Days Qty: 120 RF: 6 budesonide-formoterol [Symbicort] 160-4.5 mcg/actuation HFA aerosol inhaler 2 puff inhalation BID 30 Days Qty: 10.2 RF: 11 gabapentin 300 mg capsule 600 mg PO BEDTIME 30 Days Qty: 60 RF: 3 Referrals: Louis Cantu MD [Physician] - 2 days (left head tingling, pmh CVA, negative CT/CTA) Mikey Venegas MD [Physician] - 2 days (3 dys chest pressure, negative trop, normal ekg) Print Language: Mongolian
[2021-05-25] MEDS: iohexoL 350 MG/ML 100 ML INFUS..BTL IV (19:07)
[2021-05-25 19:11] VITALS: BP 147/89; PULSE 99; RESP 16; O2SAT 99
[2021-05-25] MEDS: Acetaminophen 325 MG TABLET 650 MG PO (19:11)
[2021-05-25] MEDS: 0.9 % Sodium Chloride 1,000 ML 999 ML IV (19:11)
[2021-05-25 19:26] LABS: INTERNATIONAL NORM RATIO 1.1 (0.9-1.1); Prothrombin Time 12.9 SEC (9.9-13.0)
[2021-05-25 19:28] LABS: Partial Thromboplastin Time 35.4 SEC (24.1-38.0)
[2021-05-25 19:36] LABS: COVID-19 Test Negative (Negative); IDNOW Serial# 9DD0AD1C
[2021-05-25 19:39] LABS: D Dimer 215 NG/ML
[2021-05-25 20:00] VITALS: BP 155/94; PULSE 76; RESP 15; TEMP 36.6; O2SAT 99
--- NOTE | 2021-05-25 21:24 | PC.NURSE ---
patient had a tuna sandwich and jingerradha
[2021-05-25 21:50] VITALS: BP 154/91; PULSE 87; RESP 16; TEMP 36.7; O2SAT 99
[2021-05-25] MEDS: Aspirin 325 MG TABLET PO (21:59)
== END 2021-05-25 22:22 | disposition home or self-care (01) ==
PROVIDERS: Physician Assistant; Emergency Provider Emergency Medicine; PCP Internal Medicine
DX: R07.9 Chest pain, unspecified (principal); G50.0 Trigeminal neuralgia; R00.0 Tachycardia, unspecified; I10 Essential (primary) hypertension; E11.9 Type 2 diabetes mellitus without complications; Z79.82 Long term (current) use of aspirin; Z79.899 Other long term (current) drug therapy; Z20.822 Contact with and (suspected) exposure to COVID-19; Z86.73 Personal history of transient ischemic attack (TIA), and cerebral infarction without residual deficits
CPT/HCPCS: 36415; 70450; 70496; 70498; 71045; 80048; 84484; 85025; 85379; 85610; 85730; 87635; 96360; 99284; 99285; Q9967

== ENCOUNTER → 2021-06-21 13:43 | Outpatient (BNVA) | payer OTHER, SELFPAY | PROVIDERS: PCP Internal Medicine; Referring Provider Internal Medicine; Visit Provider Internal Medicine | DX: R07.2 Precordial pain (principal); I10 Essential (primary) hypertension; E11.8 Type 2 diabetes mellitus with unspecified complications; E78.5 Hyperlipidemia, unspecified | CPT/HCPCS: 93005; 99202 ==

== ENCOUNTER → 2021-06-29 14:37 | Outpatient (BNVA) | payer OTHER, SELFPAY | PROVIDERS: PCP Internal Medicine; Visit Provider Hospitalist | DX: J45.21 Mild intermittent asthma with (acute) exacerbation (principal); G47.33 Obstructive sleep apnea (adult) (pediatric); Z99.89 Dependence on other enabling machines and devices | CPT/HCPCS: 99212 ==

== ENCOUNTER → 2021-07-24 10:36 | Outpatient (REF) | payer OTHER, SELFPAY ==
--- NOTE | 2021-07-24 10:44 | CA_ITS ---
Transthoracic Echocardiogram Patient (Last, First, Middle): Sacha Soria, Gender: Male Date of : 1965 Age: 55 Procedure Date: 07/24/2021 Procedure Type: Transthoracic Echocardiogram Location: OP Height: 167.64 cm Weight: 89.81 kg BSA: 1.99 m2 Heart Rate: bpm BP: 137 / 80 mmHg Charge Lpn: PAOLA Referring MD: Beto Monreal MD Symptoms: R07.2 - Precordial pain Study Quality: Fair ECG Rhythm: Sinus Conclusions: - The left ventricular systolic function is normal. The visually estimated ejection fraction is between 60-65%. - There is mild calcification of the aortic valve. - No obvious valvular pathology seen on this study. Findings Procedure Information Contrast agent, definity, is being given per protocol without apparent complications. Left Ventricle Normal left ventricular cavity size. There is mildly increased left ventricular wall thickness. The left ventricular systolic function is normal. The visually estimated ejection fraction is between 60-65%. There is no evidence of regional wall motion abnormalities. Diastolic function is normal for age. Right Ventricle Normal right ventricular cavity size and systolic function. Atria Both atria are normal in size. Aortic Valve There is a normal trileaflet aortic valve. There is mild calcification of the aortic valve. There is no aortic valve stenosis. There is no aortic valve regurgitation. Mitral Valve The mitral valve appears normal. There is no mitral valve regurgitation. There is no mitral valve stenosis. Pulmonic Valve The pulmonic valve was not well visualized. Tricuspid Valve Normal tricuspid valve structure. There is no tricuspid valve regurgitation. The pulmonary artery systolic pressure is normal. Great Vessels The aortic annulus, sinuses of valsalva, and asc aorta are normal in size. Venous The inferior vena cava is normal in size and collapses greater than 50% with inspiration. Pericardium/Pleural There is no evidence of pericardial effusion. Prior Study Comparison No significant change compared to prior study dated: 11/01/2010. Recommendations, Care & Conclusions No obvious valvular pathology seen on this study. Measurements 2D Linear Measurements IVSd: 1.12 0.6-0.9/0.6-1.0 cm LVIDd: 4.32 3.9-5.3/4.2-5.9 cm LVIDd Index: 2.17 2.4-3.2/2.2-3.1 cm/m2 LVIDs: 3.09 2.0-3.6 cm LVPWd: 1.13 0.7-1.1 cm Ao Root: 3.20 2.1-3.5 cm LA Diam: 3.10 2.7-3.8/3.0-4.0 cm LAIDs Index: 1.56 1.5-2.3 cm/m2 LV Mass: 211.09 67-162/88-224 g LV Mass Index: 106.08 43-95/49-115 g/m2 LVOT Diam: 2.00 3.0+(-)1.3 cm 2D Systolic Function EF 4C: 68.70 >55% Mitral Valve MV Pk E: 0.56 MV PK A: 0.81 MV Decel Time: 115.00 E/A: 0.70 E'Lateral: 7.83 E'Medial: 7.62 E/E' Med: 7.30 E/E' Lat: 7.10 PHT: 34.00 MVA PHT: 6.47 Decel Sauk: 4.85 Aortic Valve AoV Pk Keith: 1.41 AoV Pk Grad: 8.00 LVOT LVOT Pk Keith: 0.84 LVOT Mn Keith: 0.53 LVOT VTI: 0.16 LVOT Pk Grad: 3.00 LVOT Mn Grad: 1.00 LVOT Diam: 2.00 LVOT Area: 3.14 Diastolic Function MV Pk E: 0.56 MV Pk A: 0.81 E/A: 0.70 E'Medial: 7.62 E/E' Med: 7.30 E' Laterial: 7.83 E/E' Lat: 7.10 Right Ventricle TAPSE (mm): 2.19 Tricuspid Valve TR Pk Keith: 2.20 TR Pk Grad: 19.00 RA Press: 3.00 RVSP: 22.00 Great Vessels Aorta Ao Root-2D: 3.20 2.0-3.7 cm Ao Asc: 3.40 2.1-3.4 cm Updated in Other Vendor System with Status of Final Beto Monreal MD electronically signed on 07/24/2021 12:13:17 PM with status of Final
== END ==
LOC: HO.CARD 10:36
PROVIDERS: PCP Internal Medicine; Visit Provider Internal Medicine
DX: R07.2 Precordial pain (principal)
CPT/HCPCS: 93306; Q9957

== ENCOUNTER → 2021-08-21 14:02 | Outpatient (BNVA) | payer OTHER, SELFPAY | PROVIDERS: PCP Internal Medicine; Referring Provider Internal Medicine; Visit Provider Internal Medicine | DX: R07.2 Precordial pain (principal); E78.5 Hyperlipidemia, unspecified; E11.8 Type 2 diabetes mellitus with unspecified complications; I10 Essential (primary) hypertension | CPT/HCPCS: 93005; 99212 ==

== ENCOUNTER → 2021-09-11 08:00 | Outpatient (REF) | payer OTHER, SELFPAY ==
--- NOTE | ~2021-09-11 | NM_ITS ---
Lexiscan Myocardial perfusion study Indication: Chest pain, assess for coronary disease ischemia Technique: The patient was brought in for a Lexiscan perfusion study on 09/11/2021 and was injected 0.4 mg of Lexiscan intravenously. Within a minute of this injection 30 mCi of sestamibi was given intravenously. Images were obtained using the SPECT gamma camera interlaced with the gating device. Images were obtained in supine position. Resting perfusion study was performed on 09/14/2021. Patient was administered 30 mCi of sestamibi intravenously at rest. Images were then obtained in supine position. Total DLP 110mGy-cm. Images were processed with the software and compared side to side in short axis, horizontal long axis and vertical long axis views. Findings: Raw acquisition was reviewed. The stress perfusion study showed slightly diminished tracer uptake in the distal part of anterior wall. No significant change with CT attenuation correction. The gated study shows diminished LV systolic function with calculated LVEF of 46%. LV cavity is normal in size. The gated study shows normal wall thickening and contraction of segments. Resting study shows no significant perfusion abnormality. Gating at rest reveals normal wall motion with ejection fraction at 44%. The findings are consistent with small reversible distal anterior defect. NM/NM cardiolite stress test Impression: 1. Myocardial perfusion imaging study shows small reversible defect in the distal anterior wall, but with normal contractility on gating. Could be a small area of ischemia but could also be artifactual. 2. Gated LVEF is 40% during stress and 44% during rest. Correlate with echocardiogram. 3. Transient ischemic dilatation not present. EKG component of the test reported separately.
--- NOTE | 2021-09-11 08:04 | CA_ITS ---
Acquisition Time: 2021-09-11 08:22:16 Total Exercise Time: 00:02:00 Test Indications: Chest Pain Medications: SEE H+P Protocol: LEXISCAN Max HR: 136 BPM 82% of Pred: 165 BPM Max BP: 136/080 mmHG Max Work Load: 1.0 METS Pharmacological stress test with lexiscan injection, while sitting and kicking his legs, with report of 3/10 mid chest discomfort at baseline then with 5/10 anterior chest burning post injection, with isolated PVC, with normotenisive response to injection, with nondiagnostic EKG for ischemia. At 5 min 50 sec recovery he was treated with Aminophylline 75mg IVP to reverse Lexiscan. He continue to have his baseline 3/10 chest discomfort which he states is always there . Nuclear images pending. Test reviewed with Dr Valdovinos. Referred By: Beto Monreal Overread By: KATRIN CANO
== END ==
LOC: HO.CARD 08:00
PROVIDERS: Visit Provider Internal Medicine
DX: R07.2 Precordial pain (principal); I20.9 Angina pectoris, unspecified
CPT/HCPCS: 78452; 93017; A9500; J0280; J2785

== ENCOUNTER → 2021-09-20 13:47 | Outpatient (BNVA) | payer OTHER, SELFPAY | PROVIDERS: PCP Internal Medicine; Referring Provider Internal Medicine; Visit Provider Nurse Practitioner Family | DX: R07.2 Precordial pain (principal); R94.39 Abnormal result of other cardiovascular function study; I10 Essential (primary) hypertension; E78.5 Hyperlipidemia, unspecified; E11.8 Type 2 diabetes mellitus with unspecified complications | CPT/HCPCS: 99212 ==

== ENCOUNTER → 2021-10-24 13:49 | Outpatient (BNVA) | payer OTHER, SELFPAY | PROVIDERS: PCP Internal Medicine; Referring Provider Internal Medicine; Visit Provider Nurse Practitioner Family | DX: R07.2 Precordial pain (principal); R94.39 Abnormal result of other cardiovascular function study; I10 Essential (primary) hypertension; E78.5 Hyperlipidemia, unspecified; E11.8 Type 2 diabetes mellitus with unspecified complications; Z79.899 Other long term (current) drug therapy | CPT/HCPCS: 99212 ==

== ENCOUNTER → 2021-12-21 14:32 | Outpatient (BNVA) | payer OTHER, SELFPAY | PROVIDERS: PCP Internal Medicine; Visit Provider Hospitalist | DX: G47.33 Obstructive sleep apnea (adult) (pediatric) (principal); J45.21 Mild intermittent asthma with (acute) exacerbation; Z79.899 Other long term (current) drug therapy; Z99.89 Dependence on other enabling machines and devices | CPT/HCPCS: 99212 ==

== ENCOUNTER 2021-12-26 09:02 | Outpatient (REF) | payer OTHER, SELFPAY ==
[2021-12-26 09:38] LABS: MANUAL DIFF FLAG NO
[2021-12-26 10:02] LABS: Basophils Percent Auto 0.3 % (0-2); Eosinophils Absolute Auto 0.1 X10*3/uL (0.0-0.4); Eosinophils Percent Auto 1.4 % (0-4); Hemoglobin 12.5 g/dl (14.0-18.0); Imm Gran Abs Auto 0.03 X10*3/uL (0.00-0.03); Imm Gran Pct Auto 0.3 % (0.0-0.4); Lymphocytes Absolute Auto 1.7 X10*3/uL (1.2-4.9); Lymphocytes Percent Auto 18.6 % (20-40); Mean Corpuscular HGB Conc 33.8 g/dl (31.0-36.0); Mean Corpuscular Hemoglobin 28.8 pg (27.0-33.0); Mean Corpuscular Volume 85.3 fL (80.0-98.0); Mean Platelet Volume 9.2 fL (9.4-12.4); Monocytes Absolute Auto 0.6 X10*3/uL (0.1-1.2); Neutrophils Absolute Auto 6.6 x10*3/uL (2.0-8.3); Neutrophils Percent Auto 72.4 % (45-73); Platelet Count 238 X10*3/uL (160-400); Red Blood Count 4.34 X10*6/uL (4.60-5.80); Red Cell Distribution Width 12.7 % (11.0-16.0); White Blood Count 9.1 X10*3/uL (4.8-10.8)
[2021-12-26 10:13] LABS: INTERNATIONAL NORM RATIO 1.1 (0.9-1.1)
[2021-12-26 10:53] LABS: Anion Gap 14 (12-20); Blood Urea Nitrogen 16 mg/dL (9-16); Calcium 9.6 mg/dL (8.4-10.2); Carbon Dioxide 28 mmol/L (22-29); Chloride 101 mmol/L (96-108); Estimated Glomerular Filt Rate > 60; Glucose Random 102 mg/dL (60-115); Potassium 4.7 mmol/L (3.3-5.1); Sodium 138 mmol/L (135-145)
== END 2021-12-26 09:03 | disposition home or self-care (01) ==
LOC: HO.LAB 09:02
PROVIDERS: PCP Internal Medicine; Visit Provider Nurse Practitioner Family
DX: R94.39 Abnormal result of other cardiovascular function study (principal)
CPT/HCPCS: 36415; 80048; 85025; 85610

== ENCOUNTER → 2022-01-18 12:43 | Outpatient (BNVA) | payer OTHER, SELFPAY | PROVIDERS: PCP Internal Medicine; Referring Provider Internal Medicine; Visit Provider Nurse Practitioner Family | DX: R07.2 Precordial pain (principal); R94.39 Abnormal result of other cardiovascular function study; I10 Essential (primary) hypertension; E78.5 Hyperlipidemia, unspecified; E11.9 Type 2 diabetes mellitus without complications; Z79.899 Other long term (current) drug therapy; Z98.890 Other specified postprocedural states | CPT/HCPCS: 99212 ==

== ENCOUNTER → 2022-02-01 10:24 | Outpatient (BNVA) | payer OTHER, SELFPAY | PROVIDERS: PCP Internal Medicine; Referring Provider Internal Medicine; Visit Provider Nurse Practitioner | DX: K21.9 Gastro-esophageal reflux disease without esophagitis (principal); K58.2 Mixed irritable bowel syndrome; R14.0 Abdominal distension (gaseous) | CPT/HCPCS: 99212 ==

== ENCOUNTER 2022-05-01 09:39 | Outpatient (REF) | payer OTHER, SELFPAY ==
--- NOTE | ~2022-05-01 | US_ITS ---
EXAMINATION: US THYROID CLINICAL INFORMATION: Nontoxic single thyroid nodule. COMPARISON: Thyroid ultrasound 11/04/2014. TECHNIQUE: Linear transducer grayscale and color Doppler examination with attention to the region of the thyroid. FINDINGS: SIZE: Measurements of the thyroid lobes and nodules are given in sagittal, anteroposterior and transverse dimensions respectively. Right Thyroid Lobe: 4.9 x 1.8 x 3.0 cm, volume 14.1 mL. Previously 5.6 x 1.7 x 3.0 cm, volume 14.9 mL. Parenchyma: The gland echotexture is homogeneous. Thyroid vascularity is normal. Left Thyroid Lobe: 4.9 x 2.2 x 3.1 cm, volume 18.0 mL. Previously 5.3 x 2.1 x 2.0 cm, volume 11.6 mL. Parenchyma: The gland echotexture is homogeneous. Thyroid vascularity is normal. Isthmus: 0.3 cm in maximum AP dimension. Previously 0.3 cm. Estimated total number of nodules greater than or equal to 1 cm: 0. Foxing Painter nodules are described as follows: 1. Location: Right mid pole. Size: 0.4 x 0.3 x 0.4 cm, volume 0.03 mL. Previously: Not documented, new. Nodule characteristics: Composition: Solid/almost completely solid (2). Echogenicity: Hypoechoic (2). Shape: Not taller than wide (0). Margins: Smooth (0). Echogenic Foci: None (0). ACR TI-RADS total points: 4 ACR TI-RADS category: 4 2. Location: Right lower pole. Size: 0.7 x 0.7 x 1.0 cm, volume 0.3 mL. Previously: 0.8 x 0.6 x 0.7 cm, volume 0.2 mL. Nodule characteristics: Composition: Solid (2). Echogenicity: Hypoechoic (2). Shape: Not taller than wide (0). Margins: Smooth (0). Echogenic Foci: None (0). ACR TI-RADS total points: 4 ACR TI-RADS category: 4 Significant change in size (>/= 20% in 2 dimensions and minimal increase of 2 mm or 50% or greater increase in volume): None Change in features: None Change in ACR TI-RADS risk category: None available. NODES: No lymphadenopathy is seen in the tissue surrounding the thyroid gland. US/US thyroid IMPRESSION: Bilateral thyroid nodules nonsuspicious. Thyroid gland is otherwise unremarkable. ACR TI-RADS RECOMMENDATION REFERENCE: Ultrasound-guided fine-needle aspiration, followup ultrasound, no further follow up. * TR1 (0 point) and TR 2 (2 points): No FNA or follow up * TR3 (3 points): FNA if more than or equal to 2.5 cm in maximum dimension, followup ultrasound in 1, 3 and 5 years if 1.5 to 2.4 cm in maximum dimension. * TR4 (4-6 points): FNA if more than or equal to 1.5 cm in maximum dimension, followup ultrasound in 1, 2, 3 and 5 years if 1 to 1.4 cm in maximum dimension. * TR5 (more than or equal to 7 points): FNA if more than or equal to 1 cm in maximum dimension, followup ultrasound every year for 5 years if 0.5 to 0.9 cm in maximum dimension. * TR3, TR4 or TR5 nodules that are below the size threshold for follow up receive no follow up.
== END 2022-05-01 09:40 | disposition home or self-care (01) ==
LOC: HO.US 09:39
PROVIDERS: Visit Provider Internal Medicine
DX: E04.1 Nontoxic single thyroid nodule (principal)
CPT/HCPCS: 76536

== ENCOUNTER 2022-09-24 13:54 | Outpatient (REF) | payer OTHER, SELFPAY ==
--- NOTE | ~2022-09-24 | US_ITS ---
EXAMINATION: US SOFT TISSUE HEAD/NECK CLINICAL INFORMATION: Dysphagia, oropharyngeal phase. COMPARISON: Ultrasound thyroid 05/01/2022. TECHNIQUE: Linear transducer grayscale and color Doppler examination of the bilateral neck. FINDINGS: There are some small lymph nodes identified in the neck. For instance in the right neck there is a 0.8 cm node with no concerning features. Otherwise no focal findings. US/US soft tiss head and/or neck IMPRESSION: No suspicious findings in the examined portion of the neck soft tissues.
== END 2022-09-24 13:55 | disposition home or self-care (01) ==
LOC: HO.US 13:54
PROVIDERS: Visit Provider Student in an Organized Health Care Education/Training Program
DX: R13.12 Dysphagia, oropharyngeal phase (principal)
CPT/HCPCS: 76536

== ENCOUNTER → 2023-03-05 14:18 | Outpatient (BNVA) | payer OTHER, SELFPAY | PROVIDERS: PCP Internal Medicine; Referring Provider Internal Medicine; Visit Provider Nurse Practitioner | DX: K58.2 Mixed irritable bowel syndrome (principal); K21.9 Gastro-esophageal reflux disease without esophagitis; Z79.899 Other long term (current) drug therapy | CPT/HCPCS: 99212 ==

== ENCOUNTER → 2023-03-26 14:01 | Outpatient (BNVA) | payer OTHER, SELFPAY | PROVIDERS: PCP Internal Medicine; Visit Provider Hospitalist | DX: G47.33 Obstructive sleep apnea (adult) (pediatric) (principal); J45.21 Mild intermittent asthma with (acute) exacerbation | CPT/HCPCS: 99212 ==

== ENCOUNTER → 2023-04-03 12:37 | Outpatient (BNVA) | payer OTHER, SELFPAY | PROVIDERS: Visit Provider Nurse Practitioner | DX: R11.0 Nausea (principal); R68.81 Early satiety; K59.00 Constipation, unspecified; K21.9 Gastro-esophageal reflux disease without esophagitis | CPT/HCPCS: 99212 ==

== ENCOUNTER → 2023-04-17 07:43 | Outpatient (REF) | payer OTHER, SELFPAY ==
--- NOTE | ~2023-04-17 | NM_ITS ---
EXAMINATION: NM RADIONUCLIDE SOLID FOOD GASTRIC EMPTYING 4-HOUR STUDY CLINICAL INFORMATION: Nausea COMPARISON: None available. TECHNIQUE: A standard meal consisting of 4 oz of Egg Beaters brand tagged with 890 microcuries Tc-99m Sulfur Colloid, 8 oz water and 2 slices of toast with jelly was administered orally to the patient. Images were obtained using a dual head gamma camera in the anterior and posterior projections over of the stomach immediately post ingestion and at hourly intervals up to 4 hours post ingestion. The anterior and posterior counts at each time interval were averaged using the geometric mean and expressed as percentage of the immediate post ingestion counts. FINDINGS: There is good visualization of activity in the stomach immediately post ingestion. As the study progresses, there is good clearance of activity from the stomach and visualization of progressively increasing small bowel activity. By the end of the study, there is almost no retention noted in the stomach. Retention in the stomach at each time interval was: 1 hour 72% (normal 37%-90%) 2 hours 44% (normal 30%-60%) 3 hours 16% 4 hours 3% (normal 0%-10%) NM/NM gastric emptying study IMPRESSION: Normal 4-hour solid food gastric emptying study.
== END ==
LOC: HO.NUCMED 07:43
PROVIDERS: PCP Internal Medicine; Visit Provider Nurse Practitioner
DX: R11.0 Nausea (principal); R68.81 Early satiety
CPT/HCPCS: 78264; A9541

== ENCOUNTER → 2023-05-01 09:17 | Outpatient (REF) | payer OTHER, SELFPAY | LOC: HO.SL 09:17 | PROVIDERS: PCP Internal Medicine; Visit Provider Hospitalist | DX: G47.33 Obstructive sleep apnea (adult) (pediatric) (principal) | CPT/HCPCS: 95806 ==

== ENCOUNTER → 2023-05-01 10:00 | Outpatient (BNV) | payer OTHER, SELFPAY | PROVIDERS: PCP Internal Medicine; Visit Provider Internal Medicine | DX: G47.33 Obstructive sleep apnea (adult) (pediatric) (principal) | CPT/HCPCS: 95806 ==

== ENCOUNTER 2023-05-08 11:04 | Outpatient (REF) | payer OTHER, SELFPAY ==
[2023-05-08 14:12] LABS: Cholesterol 186 mg/dL; HDL Cholesterol 34 mg/dL; LDL Cholesterol Calculated 123 mg/dl; Triglycerides 145 mg/dL
[2023-05-08 14:59] LABS: Reflex LDLD? No
[2023-05-08 17:55] LABS: Creatinine Urine 182.59 mg/dL; Microalbum/Creatinine Ratio Ur 21.9 ug/mg cr
== END 2023-05-08 11:05 | disposition home or self-care (01) ==
LOC: HO.HHCL 11:04
PROVIDERS: Visit Provider Internal Medicine
DX: E78.2 Mixed hyperlipidemia (principal); E11.9 Type 2 diabetes mellitus without complications
CPT/HCPCS: 36415; 80061; 82043

== ENCOUNTER 2023-06-19 11:50 | Outpatient (REF) | payer OTHER, SELFPAY ==
[2023-06-19 13:47] LABS: Anion Gap 11 (12-20); Blood Urea Nitrogen 14 mg/dL (9-16); Calcium 10.1 mg/dL (8.4-10.2); Carbon Dioxide 30 mmol/L (22-29); Chloride 101 mmol/L (96-108); Estimated Glomerular Filt Rate > 60; Glucose Random 124 mg/dL (60-115); Potassium 4.4 mmol/L (3.3-5.1); Sodium 138 mmol/L (135-145)
== END 2023-06-19 11:51 | disposition home or self-care (01) ==
LOC: HO.HHCL 11:50
PROVIDERS: Visit Provider Internal Medicine
DX: I10 Essential (primary) hypertension (principal); K58.2 Mixed irritable bowel syndrome
CPT/HCPCS: 36415; 80048; 99212

== ENCOUNTER 2023-06-19 14:48 | Outpatient (AMB) | payer OTHER, SELFPAY ==
[2023-06-19 14:51] VITALS: BP 157/90; PULSE 87; BMI 28.9
--- NOTE | 2023-06-19 14:51 | MHC.OFFVIS ---
Intake Vital Signs 06/19/23 14:51 Height 5 ft 7 in Weight 184 lb 11.958 oz BMI 28.9 BP 157/90 H Blood Pressure Location Lt brachial Position Sitting Pulse 87 Intake Visit Reasons: Follow up labs Intake Note: Patient presents to in office visit today in 4 weeks follow up of labs. CC: Patient c/o constant LUQ abdominal pain, and nausea. Patient reports that he d/c the Pantoprazole because he was getting really bloated after taking it. Irrigating Pump Operator Required: Yes Irrigating Pump Operator Name: Lisa [facility] [place] inhalation therapy aide Accompanied by: Self / Same As Patient Allergies Penicillins [PENICILLINS] Allergy (Severe, Verified 06/24/23 14:23) HIVES HPI Follow up labs HPI Details Assessment & Plan (1) Nausea: Code(s): R11.0 - Nausea Plan: Citizen [place], Live He did not tolerate the LInzess at 72mcg either r/t diarrhea, so he sensibly stopped it. Now he moves his bowels once daily, but with fecal urgency after his one big meal. This is the change from his prior baseline of constipation. His appetite is very limited and because of this he only eats one meal a day. He has nausea when he eats too large a meal, and has had episode of vomiting. He is diabetic on metformin. Will get GES for now and no other new medications. He is happy with the rabeprazole and simethicone. ROV after GES. (2) Early satiety: Code(s): R68.81 - Early satiety (3) Constipation: Code(s): K59.00 - Constipation, unspecified (4) GERD (gastroesophageal reflux disease): Code(s): K21.9 - Gastro-esophageal reflux disease without esophagitis Orders: Orders NM gastric emptying study Today R11.0 - Nausea, R68.81 - Early satiety GASTRIC EMPTYING STUDY 04/18/23? IMPRESSION: Normal 4-hour solid food gastric emptying study. ? At this point he has had 2- gastric emptying studies and an unremarkable EGD/colonoscopy since 2019. TODAY'S VISIT Citizen [place] #Lisa Cnator I advise him of the results and now over the years we have 2 negative GES and a negative EGD/colonoscopy since 2019. I educate him that nausea can also be from medication side effects, metabolic or neurologic causes and he should work with his PCP to see if any of these are at the root of the cause. He says that taking protonix and aciphex are causign him bloating, but he was not supposed to be taking both of them. He is only to be taking Aciphex and I ask him to get rid of the pantoprazole. Apparently, he gets his meds in a med box and the pantoprazole was not d/c'd. He continues to have IBS-M and I educate him that fiber is the best way to control this. I will send a fiber pill to [facility] and also write this out for him to buy OTC if needed. ROV 6 mos. PFSH Medical History LEVI (obstructive sleep apnea) Other and unspecified hyperlipidemia Essential hypertension Type 2 diabetes mellitus with unspecified complications Back pain LEVI on CPAP Asthma Surgical History History of cardiac cath History of esophagogastroduodenoscopy (EGD) Hx of colonoscopy History of back surgery (~10/2020) Family History Son No problems noted. Father Stomach cancer Mother Cancer Heart problem Brother Cancer Social History Household Members: Spouse Alcohol intake: never Patient Tobacco Use Status: Never used Tobacco Review of Systems Const Denies fatigue, Denies fever(s), Denies night sweats, Denies poor appetite and Denies weight loss Eyes Details: glasses Reports requires corrective lenses ENT Reports Normal hearing present, Denies dysphagia, Denies odynophagia, Denies throat swelling and Denies tongue swelling Card Reports no additional complaints Resp Reports no additional complaints GI Denies abdominal pain, Denies melena, Denies bloating, Denies hematochezia, Reports constipation, Denies GI cramping, Denies dysphagia, Denies excessive flatus, Denies early satiety, Reports heartburn, Reports diarrhea, Reports nausea, Denies odynophagia, Denies vomiting and Denies hematemesis Skin/Breast Denies pruritus, Denies lesions, Denies rash and Denies jaundice Neuro Reports Normal hearing present and Denies Abnormal speech present Endo Denies fatigue Aller/Immun Denies throat swelling and Denies tongue swelling Physical Exam Vital Signs: Last Vital Signs Pulse 87 06/19/23 14:51 BP 157/90 H 06/19/23 14:51 BMI result Body Mass Index 28.9 Const General: cooperative, no acute distress, well developed and well groomed Nutritional Appearance: well nourished and overweight Orientation/consciousness: oriented to person, oriented to place and oriented to time Limitations: language barrier and ambulation with cane HEENT Head: Yes normocephalic and Yes atraumatic Eyes General: appearance normal, both eyes and all related structures Pupils: Equal, round and reactive pupils present Neck Neck: Yes normal visual inspection and Yes no lymphadenopathy Thyroid: Thyroid normal Resp Effort & Inspection: normal respiratory effort and able to speak in complete sentences Auscultation: clear to auscultation bilaterally Cardio Rate: regular rate Rhythm: regular rhythm Heart sounds: Normal, physiologic split S2 sound present Peripheral pulses: radial pulses present and posterior tibial pulses present GI Inspection: No distended, No Abdominal panniculus present and Yes obesity Palpation (GI): Soft to palpation, nontender, no guarding, not rigid and No hepatosplenomegaly present Percussion: Yes normal to percussion Auscultation: normal bowel sounds Rectal Exam - Male: Yes deferred Skin General skin exam: no rashes or lesions noted, turgor normal, skin not dry, no jaundice, No spider nevi and no striae Rashes: no rashes Nails: normal Neuro General: oriented to person, oriented to place and oriented to time Cranial nerves: Yes Equal, round and reactive pupils present and Yes Normal hearing present Speech: No Abnormal speech present Extrem General: Yes normal to inspection, No clubbing, No cyanosis and No edema Psych Appearance: grossly normal and well kempt Mental Status: mental status grossly normal Speech and movement: Normal speech and movement present Affect: normal affect Attitude: cooperative Thought process: Normal thought process present and not confabulating Thought content: Normal thought content present Insight: Limited insight present (Psych) Judgement: Limited judgement present (Psych) Assessment & Plan Assessment & Plan (1) Irritable bowel syndrome with both constipation and diarrhea: Comment: MORE CONSTIPATION DOMINANT BUT MIXED Code(s): K58.2 - Mixed irritable bowel syndrome Plan: Citizen [place] #Lisa Live I advise him of the results and now over the years we have 2 negative GES and a negative EGD/colonoscopy since 2019. I educate him that nausea can also be from medication side effects, metabolic or neurologic causes and he should work with his PCP to see if any of these are at the root of the cause. He says that taking protonix and aciphex are causign him bloating, but he was not supposed to be taking both of them. He is only to be taking Aciphex and I ask him to get rid of the pantoprazole. Apparently, he gets his meds in a med box and the pantoprazole was not d/c'd. He continues to have IBS-M and I educate him that fiber is the best way to control this. I will send a fiber pill to [facility] and also write this out for him to buy OTC if needed. ROV 6 mos. Medications: New calcium polycarbophil (Fiber Laxative (calcium polycarbophil)) 625 mg PO BID 60 tabs 6RF K58.2 - Mixed irritable bowel syndrome Refilled simethicone after meals 180 mg PO QID 120 caps 6RF 30 days K21.9 - Gastro-esophageal reflux disease without esophagitis, R14.0 - Abdominal distension (gaseous) rabeprazole (AcipHex) PLEASE DISREGUARD RX FOR PANTOPRAZOLE 20 mg PO BID 60 tabs 6RF K21.9 - Gastro-esophageal reflux disease without esophagitis Discontinued linaclotide Discontinued Reason: Doctor's Order 72 mcg PO QAM 30 caps 6RF K59.00 - Constipation, unspecified Coding Level of Care Code Est Pt Level 3 (18815) Diagnoses Irritable bowel syndrome with both constipation and diarrhea K58.2
== END 2023-06-19 16:23 | disposition home or self-care (01) ==
PROVIDERS: PCP Internal Medicine; Visit Provider Nurse Practitioner
DX: K58.2 Mixed irritable bowel syndrome (principal)
CPT/HCPCS: 99213

== ENCOUNTER 2023-06-24 14:15 | Outpatient (AMB) | payer OTHER, SELFPAY ==
--- NOTE | 2023-06-24 14:21 | A.OFFVIS_ITS ---
Intake Vital Signs 06/24/23 14:22 Height 5 ft 7 in Weight 184 lb 11.958 oz BMI 28.9 Pulse 89 Pulse Source Pulse Oximeter Pulse Oximetry (%) 97 Oxygen Delivery Method Room Air Intake Visit Reasons: Obstructive sleep apnea Allergies Penicillins [PENICILLINS] Allergy (Severe, Verified 06/24/23 14:23) HIVES HPI HPI Comments History of Present Illness0 Details The patient is a 57-year-old gentleman known history of asthma in addition to obstructive sleep apnea. He has been followed closely by Pulmonary in the past. He has had worsening respiratory symptoms for the last few months. He has also has episodes where he feels significant chest tightness moderate severity. Usually when that happens he has a hard time breathing. He quickly needs to gives have a nebulizer treatment to improve his symptoms. He has is the symptoms are worse now in the summer, but, there also bed in the winter time in other seasons. He has not had any recent pulmonary function studies. He is not aware of having any allergy testing. He does not use inhalers but there hard for him to use. At this point will just focus on nebulized treatments to improve his respiratory capacity. Will need blood work in addition to pulmonary function studies. Patient also has sleep apnea. The sleep apnea therapy has been affecting beneficial. [email or web address]. The patient is here for pulmonary follow-up visit. Overall he is doing well from a respiratory status. He still gets dyspnea on exertion [id number] when going up a flight of stairs. He also feels some chest tightness at times. Would be unreasonable to try some prednisone to try to improve his respiratory status. Right now he can not even do that due to the fact that has significant back pain and sciatica pain. The pain have gotten worse. He also has significant neck discomfort. Still, the CPAP therapy has been effective in beneficial. He does use it every night more than 4 hours a night. He has a fullface mask the seems to be working okay for him. At this point his respiratory status is stable he is going to follow-up with his primary care doctor regarding his sciatic on pain. 01/30/2021 the patient is here for pulmonary follow-up visit. Since we last spoke he had a bad fall in the bathroom resulting in injury to his thoracic spine and also his neck. The patient was admitted to [facility] where he needed emergency surgery. He is now recovering well. After his injury he could not feel his lower extremities and now he is back to walking. He really feels blessed. In the meantime since his injury to his neck is been hard for him to use his CPAP machine. The CPAP therapy has been on comfortable because the strap school right where his surgical scar is. I did provide him with a different mask, nasal gel pillows dream Wear which she was able to tolerate a lot better. He will start using that mask. He has been using the CPAP. The therapy has been affecting beneficial for him. He does use it for more than 4 hours a night. Hopefully with a more comfortable mask he can continue getting the benefits of the machine without hurting his surgical area. His asthma also has been acting up. However is because primarily he has not been able to use inhaled powder therapy after his injury. Therefore will try to improve his respiratory therapy with HFA therapy at this time.Is 06/29/2021 the patient is here for a pulmonary follow-up visit. Overall the patient has been doing well from a respiratory status Until recently when he started developing worsening chest tightness and wheezing. Patient has multiple inhalers. Appears to have a hard time keeping up with all his inhalers and his rescue therapy. Therefore believe that simpler findings regimen to a triple inhaler such as Trelegy will provide better adherence and better response to therapy. The patient also has a rescue inhaler that he can use as needed. In the meantime the CPAP therapy continues to be affecting beneficial. He does use it more than 4 hours a night. Recently he was evaluated in the ER where he underwent a CT scan of his back demonstrating evidence of spinal stenosis so the significant surgical changes trauma changes. He does follow-up at the pain clinic. He is wondering about any of the interventions that he undergo that will provide him some relief. apparently He is already established with the pain clinic here at [place]. 12/21/2021 the patient is here for a pulmonary follow-up visit. Overall he is doing well. He is currently being evaluated from a cardiac standpoint. And will be undergoing a repeat cardiac catheterization soon. In the meantime we tried multiple inhalers including Symbicort and more recently Trelegy. However, he had to stop because they given chest pressure. Therefore will hold off on any additional maintenance inhalers. He seems to tolerate the Flovent and also the short-acting beta agonist that he uses twice a day. Therefore will continue with that regimen for now. In the meantime he continues with CPAP. He does have a dream Station. He needs to register the machine in order to expect to get a replacement for the recall currently going on. The CPAP therapy continues to be affecting beneficial he does use it for more than 4 hours a night. I do not have his machine right now to download. 03/26/2023 the patient is here for pulmonary follow-up visit. He is doing better from a cardiac standpoint. He is also doing well from a respiratory status. He is tolerating the Flovent in his rescue inhaler. The patient is having hard time with sleep. He is waking up with significant daytime drowsiness. His [place] score is elevated 12/24. The patient was not CPAP and was very adherent to the therapy. However, his machine stopped working in his noted that there were cockroaches in the machine and was infested and she became very concerned and she threw away the machine. The machine was older than 5 6 years. He was no longer active with his [employer] company, [email or web address] the time. Therefore I will have him repeat the home sleep study in order to re-evaluate for sleep apnea. If he still is having significant sleep apnea will go ahead and order another CPAP for him. 06/24/2023 the patient is here for a pulmonary follow-up visit. He continues to have significant daytime drowsiness. His [place] score is elevated 11/24. Has a hard time where he is gasping for air from a sound sleep. The patient does have significant daytime drowsiness and also headaches. We did review his sleep study. Appears that he spent almost an hour below 88% and desaturated down to the low 80s. This probably explains his ongoing headache. In addition to that he was tachycardic. The patient also has significant sleep apnea. He has cardiovascular risk factors. The patient understands the CPAP is a very crucial treatment for him to minimize cardiovascular disease specially since he is already having chest discomfort while sleeping and evidence of significant tachycardia and increased physiological stress. He is agreeable to start CPAP at this time. Will set him up with a local [employer] company for him to be fitted with a mask in the equipment. The patient also continues with his respiratory medications. Asthma seems to be fairly good control. PFSH Medical History LEVI (obstructive sleep apnea) Other and unspecified hyperlipidemia Essential hypertension Type 2 diabetes mellitus with unspecified complications Back pain LEVI on CPAP Asthma Surgical History History of cardiac cath History of esophagogastroduodenoscopy (EGD) Hx of colonoscopy History of back surgery (~10/2020) Family History Son No problems noted. Father Stomach cancer Mother Cancer Heart problem Brother Cancer Social History Household Members: Spouse Alcohol intake: never Patient Tobacco Use Status: Never used Tobacco Review of Systems Const Reports daytime sleepiness, Reports difficulty sleeping, Reports headache(s), Denies night sweats and Reports snoring ENT Denies change in voice, Reports headache(s), Denies lip swelling, Denies mouth pain, Reports nasal congestion, Reports nasal discharge and Denies tongue swelling Card Reports chest pain and Reports dyspnea on exertion Resp Reports cough, Reports dyspnea on exertion, Reports snoring and Denies wheezing GI Denies abdominal pain Musc Reports abnormal gait and Reports back pain Neuro Denies Neuro-related abnormal movements, Reports abnormal gait and Reports headache(s) Psych Denies no additional complaints Renato/Lymph Denies easy bleeding and Denies lymphadenopathy Aller/Immun Denies lip swelling, Denies tongue swelling and Denies wheezing Physical Exam Vital Signs: Last Vital Signs Pulse 89 06/24/23 14:22 Pulse Ox 97 06/24/23 14:22 Oxygen Delivery Method Room Air 06/24/23 14:22 BMI result Body Mass Index 28.9 Const General: alert Neck Neck: Yes normal visual inspection, Yes full ROM and Yes no lymphadenopathy Chest Chest palpation & inspection: normal inspection of the chest Resp Auscultation: diminished lung sounds Cardio Rate: regular rate Rhythm: regular rhythm Heart sounds: S1 normal heart sound present and S2 normal heart sound present GI Palpation (GI): Soft to palpation and nontender Auscultation: normal bowel sounds Skin General skin exam: rashes and/or lesions noted Assessment & Plan Assessment & Plan (1) Asthma: Code(s): J45.909 - Unspecified asthma, uncomplicated Qualifiers: Asthma complication type: with acute exacerbation Asthma persistence: intermittent Asthma severity: mild Qualified Code(s): J45.21 - Mild intermittent asthma with (acute) exacerbation (2) LEVI (obstructive sleep apnea): Code(s): G47.33 - Obstructive sleep apnea (adult) (pediatric) (3) Chest pain: Code(s): R07.9 - Chest pain, unspecified Qualifiers: Chest pain type: unspecified Qualified Code(s): R07.9 - Chest pain, unspecified Plan Continue Flovent EKATERINA as needed start APAP chest x-ray if the patient develops recurrent chest pains he needs to seek urgent medical advice specially with his increased cardiovascular risk factors F/U 4-6 months Orders: Orders XR chest 2V Today R07.9 - Chest pain, unspecified Coding Level of Care Code Est Pt Level 4 (04947) Diagnoses Mild intermittent asthma with acute exacerbation J45.21 Asthma complication type: with acute exacerbation Asthma persistence: intermittent Asthma severity: mild LEVI (obstructive sleep apnea) G47.33 Chest pain R07.9 Chest pain type: unspecified Time Spent (min) 17
[2023-06-24 14:22] VITALS: PULSE 89; O2SAT 97; BMI 28.9
== END 2023-06-24 14:40 | disposition home or self-care (01) ==
PROVIDERS: PCP Internal Medicine; Visit Provider Hospitalist
DX: J45.21 Mild intermittent asthma with (acute) exacerbation (principal); G47.33 Obstructive sleep apnea (adult) (pediatric); R07.9 Chest pain, unspecified
CPT/HCPCS: 99214

== ENCOUNTER → 2023-06-24 14:15 | Outpatient (BNVA) | payer OTHER, SELFPAY | PROVIDERS: PCP Internal Medicine; Visit Provider Hospitalist | DX: J45.21 Mild intermittent asthma with (acute) exacerbation (principal); G47.33 Obstructive sleep apnea (adult) (pediatric); R07.9 Chest pain, unspecified | CPT/HCPCS: 99212 ==

== ENCOUNTER 2023-07-02 10:16 | Outpatient (REF) | payer OTHER, SELFPAY ==
--- NOTE | ~2023-07-02 | XR_ITS ---
EXAMINATION: XR CHEST CLINICAL INFORMATION: Chest pain COMPARISON: 05/25/2021 TECHNIQUE: 2 views of the chest were obtained. FINDINGS: Heart, mediastinum, pulmonary vessels and lung leyva within normal limits. Redemonstration mild kyphosis, mid dorsal compression fractures and flowing osteophytes. XR/XR chest 2V IMPRESSION: No acute cardiopulmonary disease or interval change
== END 2023-07-02 10:17 | disposition home or self-care (01) ==
LOC: HO.XRAY 10:16
PROVIDERS: PCP Internal Medicine; Visit Provider Hospitalist
DX: R07.9 Chest pain, unspecified (principal)
CPT/HCPCS: 71046

== ENCOUNTER 2023-09-10 09:05 | Outpatient (REF) | payer OTHER, SELFPAY ==
--- NOTE | ~2023-09-10 | XR_ITS ---
EXAMINATION: XR TOES, LEFT CLINICAL INFORMATION: Toe pain for 2 weeks COMPARISON: None available. TECHNIQUE: 3 views of the left toes were obtained. FINDINGS: Soft tissue swelling is evident about the distal phalanx of the left great toe but no bone lesions are detected. In particular, no erosive or proliferative changes are evident and there is no evidence of fracture or dislocation. XR/XR toe LT min 2V IMPRESSION: 1. Soft tissue swelling but no osseous abnormalities in the great toe. However, if osteomyelitis is suspected clinically, it would be better assessed by MRI.
== END 2023-09-10 09:06 | disposition home or self-care (01) ==
LOC: HO.HHCX 09:05
PROVIDERS: Visit Provider Emergency Medicine
DX: L08.9 Local infection of the skin and subcutaneous tissue, unspecified (principal); R60.0 Localized edema; M79.675 Pain in left toe(s)
CPT/HCPCS: 73660

== ENCOUNTER 2023-10-18 10:32 | Outpatient (AMB) | payer OTHER, SELFPAY ==
--- NOTE | 2023-10-18 10:40 | A.OFFVIS_ITS ---
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 He has been followed closely by Pulmonary in the past. He has had worsening respiratory symptoms for the last few months. He has also has episodes where he feels significant chest tightness moderate severity. Usually when that happens he has a hard time breathing. He quickly needs to gives have a nebulizer treatment to improve his symptoms. He has is the symptoms are worse now in the summer, but, there also bed in the winter time in other seasons. He has not had any recent pulmonary function studies. He is not aware of having any allergy testing. He does not use inhalers but there hard for him to use. At this point will just focus on nebulized treatments to improve his respiratory capacity. Will need blood work in addition to pulmonary function studies. Patient also has sleep apnea. The sleep apnea therapy has been affecting beneficial. He does get supplies through [facility]. 06/24/2023 the patient is here for a pulm onary follow-up visit. He continues to have significant daytime drowsiness. His [place] score is elevated 11/24. Has a hard time where he is gasping for air from a sound sleep. The patient does have significant daytime drowsiness and also headaches. We did review his sleep study. Appears that he spent almost an hour below 88% and desaturated down to the low 80s. This probably explains his ongoing headache. In addition to that he was tachycardic. The patient also has significant sleep apnea. He has cardiovascular risk factors. The patient understands the CPAP is a very crucial treatment for him to minimize cardiovascular disease specially since he is already having chest discomfort while sleeping and evidence of significant tachycardia and increased physiological stress. He is agreeable to start CPAP at this time. Will set him up with a local [employer] for him to be fitted with a mask in the equipment. The patient also continues with his respiratory medications. Asthma seems to be fairly good control. 10/18/2023 the patient is here for a pulm onary follow-up visit. The patient overall feels better. He is sleeping better he is using CPAP all night. The CPAP therapy has been affecting beneficial. Although sometimes he feels nauseous with it. He had to take off his mask once because he felt like he was going to vomit. He may have been swallowing some additional air. The patient is tolerating the mask and he does not want me to touch the pressures because if he feels the working appropriately. Therefore, the patient has found benefit from it. He is also complaining of pleuritic back pain. Primarily on the right side. He does have reproducible discomfort with the muscles a very spastic in likely has muscle strain in that area. I did reassure him that this is not his lung but it is causing significant discomfort. I will send him some Flexeril meantime he is going to continue with the homeopathic therapies. If no better he can follow-up with his primary care doctor. The patient did have a chest x- ray back in the fall which was reassuring overall. [facility] Medical History LEVI (obstructive sleep apnea) Other and unspecified hyperlipidemia Essential hypertension Type 2 diabetes mellitus with unspecified complications Back pain LEVI on CPAP Asthma Surgical History History of cardiac cath History of esophagogastroduodenoscopy (EGD) Hx of colonoscopy History of back surgery (~10/2020) Family History Son No problems noted. Father Stomach cancer Mother Cancer Heart problem Brother Cancer Social History Household Members: Spouse Alcohol intake: never Patient Tobacco Use Status: Never used Tobacco Review of Systems Const Denies daytime sleepiness, Denies night sweats and Denies snoring ENT Denies change in voice, Denies lip swelling, Denies mouth pain, Reports nasal congestion, Reports nasal discharge and Denies tongue swelling Card Reports chest pain and Reports dyspnea on exertion Resp Reports cough, Reports dyspnea on exertion, Denies snoring and Denies wheezing GI Denies abdominal pain Musc Reports abnormal gait and Reports back pain Neuro Denies Neuro-related abnormal movements and Reports abnormal gait Psych Denies no additional complaints Renato/Lymph Denies easy bleeding and Denies lymphadenopathy Aller/Immun Denies lip swelling, Denies tongue swelling and Denies wheezing Physical Exam Vital Signs: Last Vital Signs Pulse 84 10/18/23 10:41 Pulse Ox 98 10/18/23 10:41 Oxygen Delivery Method Room Air 10/18/23 10:41 BMI result Body Mass Index 28.2 Const General: alert Neck Neck: Yes normal visual inspection, Yes full ROM and Yes no lymphadenopathy Chest Chest palpation & inspection: normal inspection of the chest Resp Auscultation: diminished lung sounds Cardio Rate: regular rate Rhythm: regular rhythm Heart sounds: S1 normal heart sound present and S2 normal heart sound present GI Palpation (GI): Soft to palpation and nontender Auscultation: normal bowel sounds Skin General skin exam: rashes and/or lesions noted Assessment & Plan Assessment & Plan (1) Asthma: Code(s): J45.909 - Unspecified asthma, uncomplicated Qualifiers: Asthma complication type: with acute exacerbation Asthma persistence: intermittent Asthma severity: mild Qualified Code(s): J45.21 - Mild intermittent asthma with (acute) exacerbation (2) LEVI (obstructive sleep apnea): Code(s): G47.33 - Obstructive sleep apnea (adult) (pediatric) (3) Chest pain: Code(s): R07.9 - Chest pain, unspecified Qualifiers: Chest pain type: unspecified Qualified Code(s): R07.9 - Chest pain, unspecified Plan stop Flovent start Symbicort EKATERINA as needed continue APAP muscle relaxant if the patient develops recurrent chest pains he needs to seek urgent medical advice specially with his increased cardiovascular risk factors F/U 4-6 months Medications: New budesonide-formoterol 160-4.5 mcg/actuation (Symbicort) 2 puffs inhalation BID 30 days 10.2 grams 11RF J44.89 - Other specified chronic obstructive pulmonary disease simethicone (Gas Relief (simethicone)) 160 mg (2 x 80 mg) PO BEDTIME 30 days 60 tabs 3RF cyclobenzaprine 5 mg PO TID 7 days PRN 20 tabs 0RF muscle spasm Coding Level of Care Code Est Pt Level 4 (76086) Diagnoses Mild intermittent asthma with acute exacerbation J45.21 Asthma complication type: with acute exacerbation Asthma persistence: intermittent Asthma severity: mild LEVI (obstructive sleep apnea) G47.33 Chest pain R07.9 Chest pain type: unspecified Time Spent (min) 16
[2023-10-18 10:41] VITALS: PULSE 84; O2SAT 98; BMI 28.2
== END 2023-10-18 10:59 | disposition home or self-care (01) ==
PROVIDERS: PCP Internal Medicine; Visit Provider Hospitalist
DX: J45.21 Mild intermittent asthma with (acute) exacerbation (principal); G47.33 Obstructive sleep apnea (adult) (pediatric); R07.9 Chest pain, unspecified
CPT/HCPCS: 99214

== ENCOUNTER → 2023-10-18 10:32 | Outpatient (BNVA) | payer OTHER, SELFPAY | PROVIDERS: PCP Internal Medicine; Visit Provider Hospitalist | DX: G47.33 Obstructive sleep apnea (adult) (pediatric) (principal); J45.21 Mild intermittent asthma with (acute) exacerbation; R07.9 Chest pain, unspecified; Z99.89 Dependence on other enabling machines and devices | CPT/HCPCS: 99212 ==

== ENCOUNTER 2023-12-18 10:29 | Outpatient (AMB) | payer OTHER, SELFPAY ==
--- NOTE | 2023-12-18 10:42 | A.OFFVIS_ITS ---
Intake Vital Signs 12/18/23 10:43 Height 5 ft 7 in Weight 192 lb 10.944 oz BMI 30.2 BP 138/71 Blood Pressure Location Lt brachial Position Sitting Pulse 101 H Pulse Source Pulse Oximeter Intake Visit Reasons: 6 months follow up Intake Note: Pt presents to the office today for a 6 month follow up for GERD. Pt states he is still having issues with his acid reflux. Pt states he get acid reflux everyday especially at nighttime. Pt denies any other GI concerns at this time. 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 I educate him that nausea can also be from medication side effects, metabolic or neurologic causes and he should work with his PCP to see if any of these are at the root of the cause. He says that taking protonix and aciphex are causign him bloating, but he was not supposed to be taking both of them. He is only to be taking Aciphex and I ask him to get rid of the pantoprazole. Apparently, he gets his meds in a med box and the pantoprazole was not d/c'd. He continues to have IBS-M and I educate him that fiber is the best way to control this. I will send a fiber pill to [facility] and also write this out for him to buy OTC if needed. ROV 6 mos. Medications: New calcium polycarbop hil (Fiber Laxativ e (calcium polycar bophil)) 625 mg PO BID 60 t abs 6RF K58.2 - Mixed irri table bowel syndro me Refilled simethicone aft er meals 180 mg PO QID 120 caps 6RF 30 days K21.9 - Gastro-eso phageal reflux dis ease without esoph agitis, R14.0 - Ab dominal distension (gaseous) rabeprazole (AcipH ex) PLEASE DISR EGUARD RX FOR PANT OPRAZOLE 20 mg PO BID 60 ta bs 6RF K21.9 - Gastro-eso phageal reflux dis ease without esoph agitis Discontinued linaclotide Dis continued Reason: Doctor's Order 72 mcg PO QAM 30 caps 6RF K59.00 - Constipat ion, unspecified TODAY'S VISIT [place] #Deisy Garcia He says to me that the Aciphex 20mg bid is controlling his GERD well. However, he has not received the fiber pill, and I advise him that he needs to buy it OTC and I write it out for him so that the staff can help him find the most inexpensive form. He will have LLQ pain when he eats, likely r/t the fact that he is only moving his bowels qod. No diarrhea now. He also will have a lot of bloating. This is when he will try to use the BR, as he says he does not have the urge to defecate at all. The above could also be the reason for his nausea. He does not feel he is constipated, but I think he mis understands that this is a form of CIC. His insurance is [employer], so I will also attempt to send Whoisna as they are covering his simethicone. ROV 4 weeks. [facility] Medical History LEVI (obstructive sleep apnea) Other and unspecified hyperlipidemia Essential hypertension Type 2 diabetes mellitus with unspecified complications Back pain LEVI on CPAP Asthma Surgical History History of cardiac cath History of esophagogastroduodenoscopy (EGD) Hx of colonoscopy History of back surgery (~10/2020) Family History Son No problems noted. Father Stomach cancer Mother Cancer Heart problem Brother Cancer Social History Household Members: Spouse Alcohol intake: never Patient Tobacco Use Status: Never used Tobacco Review of Systems Const Denies fatigue, Denies fever(s), Denies night sweats, Denies poor appetite and Denies weight loss ENT Reports Normal hearing present, Denies dental pain, Denies dysphagia, Denies hearing loss, Denies mouth pain, Denies odynophagia, Denies throat swelling, Denies tongue swelling and Reports other (Dentition adequate) Card Reports no additional complaints Resp Reports no additional complaints GI Details: Denies abdominal pain, Denies melena, Reports bloating, Denies hematochezia, Reports constipation, Denies GI cramping, Denies dysphagia, Denies excessive flatus, Denies early satiety, Reports heartburn, Denies diarrhea, Reports nausea, Denies odynophagia, Denies vomiting and Denies hematemesis Skin/Breast Denies pruritus, Denies lesions, Denies rash and Denies jaundice Neuro Reports Normal hearing present and Denies Abnormal speech present Endo Denies fatigue Aller/Immun Denies throat swelling and Denies tongue swelling Physical Exam Vital Signs: Last Vital Signs Pulse 101 H 12/18/23 10:43 BP 138/71 12/18/23 10:43 BMI result Body Mass Index 30.2 Const General: cooperative, no acute distress, well developed and well groomed Nutritional Appearance: well nourished and obese centrally obese Orientation/consciousness: oriented to person, oriented to place and oriented to time Limitations: language barrier HEENT Head: Yes normocephalic and Yes atraumatic Eyes General: appearance normal, both eyes and all related structures Pupils: Equal, round and reactive pupils present Neck Neck: Yes normal visual inspection and Yes no lymphadenopathy Thyroid: Thyroid normal Resp Effort & Inspection: normal respiratory effort and able to speak in complete sentences Auscultation: clear to auscultation bilaterally Cardio Rate: regular rate Rhythm: regular rhythm Heart sounds: Normal, physiologic split S2 sound present Peripheral pulses: radial pulses present and posterior tibial pulses present GI Inspection: No distended, No Abdominal panniculus present and Yes obesity Palpation (GI): Soft to palpation, nontender, no guarding, not rigid and No hepatosplenomegaly present Percussion: Yes normal to percussion Auscultation: normal bowel sounds Rectal Exam - Male: Yes deferred Skin General skin exam: no rashes or lesions noted, turgor normal, skin not dry, no jaundice, No spider nevi and no striae Rashes: no rashes Nails: normal Neuro General: oriented to person, oriented to place and oriented to time Cranial nerves: Yes Equal, round and reactive pupils present and Yes Normal hearing present Speech: No Abnormal speech present Extrem General: Yes normal to inspection, No clubbing, No cyanosis and No edema Psych Appearance: grossly normal and well kempt Mental Status: mental status grossly normal Speech and movement: Normal speech and movement present Affect: normal affect Attitude: cooperative Thought process: Normal thought process present and not confabulating Thought content: Normal thought content present Insight: Limited insight present (Psych) Judgement: Limited judgement present (Psych) Assessment & Plan Assessment & Plan (1) Irritable bowel syndrome with both constipation and diarrhea: Comment: MORE CONSTIPATION DOMINANT BUT MIXED Code(s): K58.2 - Mixed irritable bowel syndrome (2) GERD (gastroesophageal reflux disease): Code(s): K21.9 - Gastro-esophageal reflux disease without esophagitis Plan [place] #Deisy LIve He says to me that the Aciphex 20mg bid is controlling his GERD well. However, he has not received the fiber pill, and I advise him that he needs to buy it OTC and I write it out for him so that the staff can help him find the most inexpensive form. He will have LLQ pain when he eats, likely r/t the fact that he is only moving his bowels qod. No diarrhea now. He also will have a lot of bloating. This is when he will try to use the BR, as he says he does not have the urge to defecate at all. The above could also be the reason for his nausea. He does not feel he is constipated, but I think he mis understands that this is a form of CIC. His insurance is [employer], so I will also attempt to send senna as they are covering his simethicone. ROV 4 weeks. Medications: New sennosides (Senna Laxative) 17.2 mg (2 x 8.6 mg) PO BEDTIME 60 tabs 6RF K58.2 - Mixed irritable bowel syndrome Coding Level of Care Code Est Pt Level 3 (86536) Diagnoses Irritable bowel syndrome with both constipation and diarrhea K58.2 GERD (gastroesophageal reflux disease) K21.9
[2023-12-18 10:43] VITALS: BP 138/71; PULSE 101; BMI 30.2
== END 2023-12-18 11:03 | disposition home or self-care (01) ==
PROVIDERS: PCP Internal Medicine; Visit Provider Nurse Practitioner
DX: K58.2 Mixed irritable bowel syndrome (principal); K21.9 Gastro-esophageal reflux disease without esophagitis
CPT/HCPCS: 99213

== ENCOUNTER → 2023-12-18 10:29 | Outpatient (BNVA) | payer OTHER, SELFPAY | PROVIDERS: PCP Internal Medicine; Visit Provider Nurse Practitioner | DX: K58.2 Mixed irritable bowel syndrome (principal); K21.9 Gastro-esophageal reflux disease without esophagitis | CPT/HCPCS: 99212 ==

== ENCOUNTER 2024-02-18 11:30 | Outpatient (AMB) | payer OTHER, SELFPAY ==
[2024-02-18 11:31] VITALS: BP 138/86; PULSE 94; BMI 29.4
--- NOTE | 2024-02-18 11:31 | A.OFFVIS_ITS ---
Vital Signs 02/18/24 11:31 Height 5 ft 7 in Weight 187 lb 13.341 oz BMI 29.4 BP 138/86 Blood Pressure Location Lt brachial Position Sitting Pulse 94 Intake Visit Reasons: 4 wk follow up - no show 01/22 Intake Note: Patient returns in follow up of abdominal pain. CC: Patient c/o RUQ abdominal pain, LUQ abdominal pain after eating,and nausea. 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 However, he has not received the fiber pill, and I advise him that he needs to buy it OTC and I write it out for him so that the staff can help him find the most inexpensive form. He will have LLQ pain when he eats, likely r/t the fact that he is only moving his bowels qod. No diarrhea now. He also will have a lot of bloating. This is when he will try to use the BR, as he says he does not have the urge to defecate at all. The above could also be the reason for his nausea. He does not feel he is constipated, but I think he mis understands that this is a form of CIC. His insurance is [employer], so I will also attempt to send senna as they are covering his simethicone. ROV 4 weeks. Medications: New sennosides (Senna Laxative) 17.2 mg (2 x 8.6 mg) PO BEDTIME 60 tabs 6RF K58.2 - Mixed irritable bowel syndrome TODAY'S VISIT Stateless #[id number] He received the senna and feels it is helping with the CIC. He still has intermittent nausea. He still has very hard stools followed by softer stools and he has the feeling of incomplete evacuation. We will increase from 2 senna qhs to 3 or even 4 qhs. He still is not moving his bowels every day, but it is more frequent than prior to the medicine. He also has nausea with pain when he uses the restroom and pain along the left colon path. He is feeling less bloated, he continues on his AcipHex twice a day with good control of his heartburn. ROV 3 weeks. [facility] Medical History LEVI (obstructive sleep apnea) Other and unspecified hyperlipidemia Essential hypertension Type 2 diabetes mellitus with unspecified complications Back pain LEVI on CPAP Asthma Surgical History History of cardiac cath History of esophagogastroduodenoscopy (EGD) Hx of colonoscopy History of back surgery (~10/2020) Family History Son No problems noted. Father Stomach cancer Mother Cancer Heart problem Brother Cancer Social History Household Members: Spouse Alcohol intake: never Patient Tobacco Use Status: Never used Tobacco Review of Systems Const Denies fatigue, Denies fever(s), Denies night sweats, Denies poor appetite and Denies weight loss ENT Reports Normal hearing present, Denies dental pain, Denies dysphagia, Denies hearing loss, Denies mouth pain, Denies odynophagia, Denies throat swelling, Denies tongue swelling and Reports other (Dentition adequate) Card Reports no additional complaints Resp Reports no additional complaints GI Details: Denies abdominal pain, Denies melena, Reports bloating, Denies hematochezia, Reports constipation, Reports GI cramping, Denies dysphagia, Denies excessive flatus, Denies early satiety, Reports heartburn, Denies diarrhea, Reports nausea, Denies odynophagia, Denies vomiting and Denies hematemesis Skin/Breast Denies pruritus, Denies lesions, Denies rash and Denies jaundice Neuro Reports Normal hearing present and Denies Abnormal speech present Endo Denies fatigue Aller/Immun Denies throat swelling and Denies tongue swelling Physical Exam Vital Signs: Last Vital Signs Pulse 94 02/18/24 11:31 BP 138/86 02/18/24 11:31 BMI result Body Mass Index 29.4 Const General: cooperative, no acute distress, well developed and well groomed Nutritional Appearance: well nourished and obese centrally obese Orientation/consciousness: oriented to person, oriented to place and oriented to time Limitations: language barrier and ambulation with cane HEENT Head: Yes normocephalic and Yes atraumatic Eyes General: appearance normal, both eyes and all related structures Pupils: Equal, round and reactive pupils present Neck Neck: Yes normal visual inspection and Yes no lymphadenopathy Thyroid: Thyroid normal Resp Effort & Inspection: normal respiratory effort and able to speak in complete s entences Auscultation: clear to auscultation bilaterally Cardio Rate: regular rate Rhythm: regular rhythm Heart sounds: Normal, physiologic split S2 sound present Peripheral pulses: radial pulses present and posterior tibial pulses present GI Inspection: No distended, No Abdominal panniculus present and Yes obesity Palpation (GI): Soft to palpation, nontender, no guarding, not rigid and No hepatosplenomegaly present Percussion: Yes normal to percussion Auscultation: normal bowel sounds Rectal Exam - Male: Yes deferred Skin General skin exam: no rashes or lesions noted, turgor normal, skin not dry, no jaundice, No spider nevi and no striae Rashes: no rashes Nails: normal Neuro General: oriented to person, oriented to place and oriented to time Cranial nerves: Yes Equal, round and reactive pupils present and Yes Normal hearing present Speech: No Abnormal speech present Extrem General: Yes normal to inspection, No clubbing, No cyanosis and No edema Psych Appearance: grossly normal and well kempt Mental Status: mental status grossly normal Speech and movement: Normal speech and movement present Affect: normal affect Attitude: cooperative Thought process: Normal thought process present and not confabulating Thought content: Normal thought content present Insight: Limited insight present (Psych) Judgement: Limited judgement present (Psych) Assessment & Plan Assessment & Plan (1) Irritable bowel syndrome with both constipation and diarrhea: Comment: MORE CONSTIPATION DOMINANT BUT MIXED Code(s): K58.2 - Mixed irritable bowel syndrome Category: Medical (2) GERD (gastroesophageal reflux disease): Code(s): K21.9 - Gastro-esophageal reflux disease without esophagitis Category: Medical (3) Tubular adenoma of colon: Comment: 04/2020 SCOPE, REPEAT IN 5 YEARS Code(s): D12.6 - Benign neoplasm of colon, unspecified Category: Medical Plan Stateless #[id number] He received the senna and feels it is helping with the CIC. He still has intermittent nausea. He still has very hard stools followed by softer stools and he has the feeling of incomplete evacuation. We will increase from 2 senna qhs to 3 or even 4 qhs. He still is not moving his bowels every day, but it is more frequent than prior to the medicine. He also has nausea with pain when he uses the restroom and pain along the left colon path. He is feeling less bloated, he continues on his AcipHex twice a day with good control of his heartburn. ROV 3 weeks. Medications: Changed From sennosides 17.2 mg (2 x 8.6 mg) PO BEDTIME 60 tabs 6RF K58.2 - Mixed irritable bowel syndrome To sennosides (Senna Laxative) 34.4 mg (4 x 8.6 mg) PO BEDTIME 60 tabs 6RF K58.2 - Mixed irritable bowel syndrome Refilled simethicone (Gas Relief (simethicone)) 160 mg (2 x 80 mg) PO BEDTIME 60 tabs 3RF 30 days rabeprazole (AcipHex) PLEASE DISREGUARD RX FOR PANTOPRAZOLE 20 mg PO BID 60 tabs 6RF K21.9 - Gastro-esophageal reflux disease without esophagitis Coding Level of Care Code Est Pt Level 3 (86738) Diagnoses Irritable bowel syndrome with both constipation and diarrhea K58.2 GERD (gastroesophageal reflux disease) K21.9 Tubular adenoma of colon D12.6
== END 2024-02-18 12:13 | disposition home or self-care (01) ==
PROVIDERS: PCP Internal Medicine; Visit Provider Nurse Practitioner
DX: K58.2 Mixed irritable bowel syndrome (principal); K21.9 Gastro-esophageal reflux disease without esophagitis; D12.6 Benign neoplasm of colon, unspecified
CPT/HCPCS: 99213

== ENCOUNTER → 2024-02-18 11:30 | Outpatient (BNVA) | payer OTHER, SELFPAY | PROVIDERS: PCP Internal Medicine; Visit Provider Nurse Practitioner | DX: K58.2 Mixed irritable bowel syndrome (principal); K21.9 Gastro-esophageal reflux disease without esophagitis; Z86.010 Personal history of colon polyps; Z79.899 Other long term (current) drug therapy | CPT/HCPCS: 99212 ==

== ENCOUNTER 2024-04-07 10:46 | Outpatient (AMB) | payer OTHER, SELFPAY ==
--- NOTE | 2024-04-07 10:48 | MHC.OFFVIS ---
Vital Signs 04/07/24 11:22 Height 5 ft 7 in Weight 189 lb 2.506 oz BMI 29.6 BP 138/84 Blood Pressure Location Rt brachial Position Sitting Pulse 66 Intake Visit Reasons: 3 week follow R/S from March Intake Note: Sacha returns to in office follow up of abdominal pain. CC: Patient reports reports feeling well and denies having any new GI concerns. Allergies Penicillins [PENICILLINS] Allergy (Severe, Verified 04/07/24 11:28) HIVES HPI HPI 3 week follow R/S from March: Details: Assessment & Plan (1) Irritable bowel syndrome with both constipation and diarrhea: Comment: MORE CONSTIPATION DOMINANT BUT MIXED Code(s): K58.2 - Mixed irritable bowel syndrome Category: Medical (2) GERD (gastroesophageal reflux disease): Code(s): K21.9 - Gastro-esophageal reflux disease without esophagitis Category: Medical (3) Tubular adenoma of colon: Comment: 04/2020 SCOPE, REPEAT IN 5 YEARS Code(s): D12.6 - Benign neoplasm of colon, unspecified Category: Medical Plan [place] #[id number] He received the senna and feels it is helping with the CIC. He still has intermittent nausea. He still has very hard stools followed by softer stools and he has the feeling of incomplete evacuation. We will increase from 2 senna qhs to 3 or even 4 qhs. He still is not moving his bowels every day, but it is more frequent than prior to the medicine. He also has nausea with pain when he uses the restroom and pain along the left colon path. He is feeling less bloated, he continues on his AcipHex twice a day with good control of his heartburn. ROV 3 weeks. Medications: Changed From sennosides 17.2 mg (2 x 8.6 mg) PO BEDTIME 60 tabs 6RF K58.2 - Mixed irritable bowel syndrome To sennosides (Senna Laxative) 34.4 mg (4 x 8.6 mg) PO BEDTIME 60 tabs 6RF K58.2 - Mixed irritable bowel syndrome Refilled simethicone (Gas Relief (simethicone)) 160 mg (2 x 80 mg) PO BEDTIME 60 tabs 3RF 30 days rabeprazole (AcipHex) PLEASE DISREGUARD RX FOR PANTOPRAZOLE 20 mg PO BID 60 tabs 6RF K21.9 - Gastro-esophageal reflux disease without esophagitis TODAY'S VISIT [place] #Tracy LIVE Increasing the senna to 2 tabs qhs completely resolved his abd pain, bloating and nausea. He continues on his AcipHex bid. ROV 6 mos. [facility] Medical History LEVI (obstructive sleep apnea) Other and unspecified hyperlipidemia Essential hypertension Type 2 diabetes mellitus with unspecified complications Back pain LEVI on CPAP Asthma Surgical History History of cardiac cath History of esophagogastroduodenoscopy (EGD) Hx of colonoscopy History of back surgery (~10/2020) Family History Son No problems noted. Father Stomach cancer Mother Cancer Heart problem Brother Cancer Social History Household Members: Spouse Alcohol intake: never Patient Tobacco Use Status: Never used Tobacco Review of Systems Const Denies fatigue, Denies fever(s), Denies night sweats, Denies poor appetite and Denies weight loss Eyes Details: glasses Reports requires corrective lenses ENT Reports Normal hearing present, Denies dental pain, Denies dysphagia, Denies hearing loss, Denies mouth pain, Denies odynophagia, Denies throat swelling, Denies tongue swelling and Reports other (Dentition adequate) Card Reports no additional complaints Resp Reports no additional complaints GI Details: Denies abdominal pain, Denies melena, Denies bloating, Denies hematochezia, Reports constipation, Denies GI cramping, Denies dysphagia, Denies excessive flatus, Denies early satiety, Reports heartburn, Denies diarrhea, Denies nausea, Denies odynophagia, Denies vomiting and Denies hematemesis Skin/Breast Denies pruritus, Denies lesions, Denies rash and Denies jaundice Neuro Reports Normal hearing present and Denies Abnormal speech present Endo Denies fatigue Aller/Immun Denies throat swelling and Denies tongue swelling Physical Exam Vital Signs: Last Vital Signs Pulse 66 04/07/24 11:22 BP 138/84 04/07/24 11:22 BMI result Body Mass Index 29.6 Const General: cooperative, no acute distress, well developed and well groomed Nutritional Appearance: well nourished and overweight Orientation/consciousness: oriented to person, oriented to place and oriented to time Limitations: language barrier and ambulation with cane HEENT Head: Yes normocephalic and Yes atraumatic Eyes General: appearance normal, both eyes and all related structures Pupils: Equal, round and reactive pupils present Neck Neck: Yes normal visual inspection and Yes no lymphadenopathy Thyroid: Thyroid normal Resp Effort & Inspection: normal respiratory effort and able to speak in complete sentences Auscultation: clear to auscultation bilaterally Cardio Rate: regular rate Rhythm: regular rhythm Heart sounds: Normal, physiologic split S2 sound present Peripheral pulses: radial pulses present and posterior tibial pulses present GI Inspection: No distended, No Abdominal panniculus present and Yes obesity Palpation (GI): Soft to palpation, nontender, no guarding, not rigid and No hepatosplenomegaly present Percussion: Yes normal to percussion Auscultation: normal bowel sounds Rectal Exam - Male: Yes deferred Skin General skin exam: no rashes or lesions noted, turgor normal, skin not dry, no jaundice, No spider nevi and no striae Rashes: no rashes Nails: normal Neuro General: oriented to person, oriented to place and oriented to time Cranial nerves: Yes Equal, round and reactive pupils present and Yes Normal hearing present Speech: No Abnormal speech present Extrem General: Yes normal to inspection, No clubbing, No cyanosis and No edema Psych Appearance: grossly normal and well kempt Mental Status: mental status grossly normal Speech and movement: Normal speech and movement present Affect: normal affect Attitude: cooperative Thought process: Normal thought process present and not confabulating Thought content: Normal thought content present Insight: Limited insight present (Psych) Judgement: Limited judgement present (Psych) Assessment & Plan Assessment & Plan (1) Irritable bowel syndrome with both constipation and diarrhea: Comment: MORE CONSTIPATION DOMINANT BUT MIXED Code(s): K58.2 - Mixed irritable bowel syndrome Category: Medical (2) GERD (gastroesophageal reflux disease): Code(s): K21.9 - Gastro-esophageal reflux disease without esophagitis Category: Medical Plan [place] #Tracy LIVE Increasing the senna to 2 tabs qhs completely resolved his abd pain, bloating and nausea. He continues on his AcipHex bid. ROV 6 mos. Medications: Refilled sennosides (Senna Laxative) 34.4 mg (4 x 8.6 mg) PO BEDTIME 60 tabs 6RF K58.2 - Mixed irritable bowel syndrome simethicone (Gas Relief (simethicone)) 160 mg (2 x 80 mg) PO BEDTIME 60 tabs 3RF 30 days rabeprazole (AcipHex) PLEASE DISREGUARD RX FOR PANTOPRAZOLE 20 mg PO BID 60 tabs 6RF K21.9 - Gastro-esophageal reflux disease without esophagitis Coding Level of Care Code Est Pt Level 3 (29438) Diagnoses Irritable bowel syndrome with both constipation and diarrhea K58.2 GERD (gastroesophageal reflux disease) K21.9
[2024-04-07 11:22] VITALS: BP 138/84; PULSE 66; BMI 29.6
== END 2024-04-07 12:05 | disposition home or self-care (01) ==
PROVIDERS: PCP Internal Medicine; Visit Provider Nurse Practitioner
DX: K58.2 Mixed irritable bowel syndrome (principal); K21.9 Gastro-esophageal reflux disease without esophagitis
CPT/HCPCS: 99213

== ENCOUNTER → 2024-04-07 10:46 | Outpatient (BNVA) | payer OTHER, SELFPAY | PROVIDERS: PCP Internal Medicine; Visit Provider Nurse Practitioner | DX: K58.2 Mixed irritable bowel syndrome (principal); K21.9 Gastro-esophageal reflux disease without esophagitis; D12.6 Benign neoplasm of colon, unspecified | CPT/HCPCS: 99212 ==

== ENCOUNTER 2024-04-16 10:08 | Outpatient (REF) | payer OTHER, SELFPAY ==
[2024-04-16 12:06] LABS: Anion Gap 13 (12-20); Blood Urea Nitrogen 14 mg/dL (9-16); Calcium 10.3 mg/dL (8.4-10.2); Carbon Dioxide 30 mmol/L (22-29); Chloride 101 mmol/L (96-108); Estimated Glomerular Filt Rate > 60; Glucose Random 145 mg/dL (60-115); Potassium 4.5 mmol/L (3.3-5.1); Sodium 139 mmol/L (135-145)
[2024-04-16 12:25] LABS: Prostate Specific Antigen Scr 1.56 ng/mL (<0.05-4.0)
== END 2024-04-16 10:09 | disposition home or self-care (01) ==
LOC: HO.HHCL 10:08
PROVIDERS: Visit Provider Internal Medicine
DX: Z00.00 Encounter for general adult medical examination without abnormal findings (principal); I10 Essential (primary) hypertension; Z12.5 Encounter for screening for malignant neoplasm of prostate
CPT/HCPCS: 36415; 80048; 84153

== ENCOUNTER 2024-06-09 18:49 | Emergency (ER) | payer OTHER, SELFPAY ==
--- NOTE | 2024-06-09 18:57 | ED_ITS ---
HPI - General Adult General Chief complaint: General Medical Stated complaint: Thrush after inhaler use Time Seen by Provider: 06/09/24 18:57 Source: patient, RN notes reviewed and old records reviewed Mode of arrival: ambulatory Limitations: no limitations History of Present Illness ED Provider: Antione HPI narrative: 58-year-old male presents for evaluation of white spots in my throat. Patient has started a new inhaler, budesonide He states that he was not instructed to swish and spit after using the medication He has had some discomfort with swallowing with a white tongue and white spots in his mouth Denies any fevers chills Related Data Home Medications ?Medication ?Instructions ?Recorded ?Confirmed bupropion HCl 300 mg 24 hr tablet, 300 mg PO QAM 08/01/20 01/18/22 extended release lorazepam 0.5 mg tablet 0.5 mg PO BID PRN 08/01/20 01/18/22 trazodone 100 mg tablet 100 mg PO BEDTIME 08/01/20 01/18/22 albuterol sulfate 90 mcg/actuation 2 inh inhalation Q8H 03/28/21 01/18/22 aerosol inhaler amlodipine 5 mg tablet 5 mg PO DAILY 06/21/21 01/18/22 atorvastatin 40 mg tablet 40 mg PO BEDTIME 06/21/21 01/18/22 lidocaine 5 % topical patch 1 patch topical DAILY 06/29/21 01/18/22 ibuprofen 600 mg tablet 600 mg PO TID 12/21/21 01/18/22 lisinopril 40 mg tablet 40 mg PO DAILY 12/21/21 01/18/22 fluticasone propionate 110 2 puff inhalation BID 01/18/22 01/18/22 mcg/actuation HFA aerosol inhaler (Flovent HFA) metformin 1,000 mg tablet 1,000 mg PO DAILY 03/05/23 Previous Rx's ?Medication ?Instructions ?Recorded acetaminophen 500 mg tablet 500 mg PO Q6H PRN pain or fever 09/08/20 (Tylenol Extra Strength) #20 tabs ascorbic acid (vitamin C) 500 mg 500 mg PO Q12H #60 tabs 05/07/21 tablet,extended release calcium polycarbophil 625 mg 625 mg PO BID #60 tabs 06/19/23 tablet (Fiber Laxative (calcium polycarbophil)) metoprolol succinate 25 mg 25 mg PO DAILY #90 tabs 08/27/23 tablet,extended release 24 hr budesonide-formoterol HFA 160 2 puff inhalation BID 30 days 10/18/23 mcg-4.5 mcg/actuation aerosol #10.2 grams inhaler (Symbicort) cyclobenzaprine 5 mg tablet 5 mg PO TID PRN muscle spasm 7 10/18/23 days #20 tabs rabeprazole 20 mg tablet,delayed 20 mg PO BID #60 tabs 04/07/24 release (AcipHex) sennosides 8.6 mg tablet (Senna 34.4 mg (4 x 8.6 mg) PO BEDTIME 04/07/24 Laxative) #60 tabs simethicone 80 mg chewable tablet 160 mg (2 x 80 mg) PO BEDTIME 30 04/07/24 (Gas Relief (simethicone)) days #60 tabs nystatin 100,000 unit/mL oral 500,000 unit (5 mL) buccal Q6H 7 06/09/24 suspension days #200 mL Allergies Allergy/AdvReac Type Severity Reaction Status Date / Time Penicillins [PENICILLINS] Allergy Severe HIVES Verified 06/09/24 19:01 Review of Systems Constitutional: Constitutional: Denies body ache(s), Denies chills, Denies fever(s) and Denies headache(s) ENT: Denies headache(s) and Reports sore throat Neurologic: Denies headache(s) PMFSH Past Medical History Medical History LEVI (obstructive sleep apnea) Other and unspecified hyperlipidemia Essential hypertension Type 2 diabetes mellitus with unspecified complications Back pain LEVI on CPAP Asthma Surgical History History of cardiac cath History of esophagogastroduodenoscopy (EGD) Hx of colonoscopy History of back surgery (~10/2020) Family History Family History Son No problems noted. Father Stomach cancer Mother Cancer Heart problem Brother Cancer Social History Social History Household Members: Spouse Alcohol intake: never Patient Tobacco Use Status: Never used Tobacco Advance Directives: No Advance Directives Information Provided: No Do you have a plan to hurt others: No Plan Physical Exam ED Vital Signs: Vital Signs - 24 hr 06/09/24 18:59 Temperature 97.5 F Pulse Rate 89 Respiratory Rate 18 Blood Pressure 156/87 H Pulse Oximetry 98 Oxygen Delivery Method Room Air BMI result Body Mass Index 30.5 Const General: healthy appearing, comfortable, no acute distress, alert and awake Nutritional Appearance: well nourished Orientation/consciousness: patient oriented x3 HENMT Head: Yes normocephalic and Yes atraumatic Eyes Eyelids: Yes eyelids normal Conjunctivae: conjunctivae normal Sclerae: sclerae normal Corneas: corneas normal Pupils: Equal, round and reactive pupils present EOM: EOMs intact bilaterally Neck Neck: Yes full ROM Resp Effort & Inspection: normal respiratory effort, able to speak in complete sentences and not labored Skin General skin exam: elasticity normal Neuro General: patient oriented x3 Cranial nerves: Yes Equal, round and reactive pupils present and Yes Bilaterally intact EOM present Cognition (Neuro): normal cognition Extrem Other: Moving all extremities well without any obvious deformities Medical Decision Making Medical Decision Making MDM Narrative: 58-year-old male presents for evaluation of white spots in the back of his throa t as well as discomfort while swallowing. He is on budesonide and reports he has not been swishing and swallowing after use. His clinical picture is most consistent with thrush and we will treat with nystatin solution Differential Diagnosis Differential Diagnoses: The differential diagnosis associated with the presentation includes Thrush Esophagitis Candidiasis Pharyngitis Discharge Plan Discharge Clinical Impression: Candidiasis of mouth Patient Disposition: Home, Self-Care Instructions: Oral Candidiasis (ED) Additional Instructions: You should either swish and spit or drink some water after using your inhaler If you do not, this can cause a fungal buildup in the back of your throat called thrush Use the nystatin swish and swallow every 4 hours for 1 week Follow-up with your primary care provider Prescriptions: New nystatin 100,000 unit/mL suspension 500,000 unit buccal Q6H 7 Days Qty: 200 0RF Rx Instructions: administer 1/2 of dose in each side of the mouth No Action metoprolol succinate 25 mg tablet extended release 24 hr 25 mg PO DAILY Qty: 90 3RF acetaminophen [Tylenol Extra Strength] 500 mg tablet 500 mg PO Q6H PRN (Reason: pain or fever) Qty: 20 0RF bupropion HCl 300 mg tablet extended release 24 hr 300 mg PO QAM trazodone 100 mg tablet 100 mg PO BEDTIME lorazepam 0.5 mg tablet 0.5 mg PO BID PRN albuterol sulfate 90 mcg/actuation HFA aerosol inhaler 2 inh inhalation Q8H ascorbic acid (vitamin C) 500 mg Tablet Extended Release 500 mg PO Q12H Qty: 60 4RF metformin 1,000 mg tablet 1,000 mg PO DAILY lidocaine 5 % adhesive patch,medicated 1 patch topical DAILY amlodipine 5 mg tablet 5 mg PO DAILY atorvastatin 40 mg tablet 40 mg PO BEDTIME ibuprofen 600 mg tablet 600 mg PO TID lisinopril 40 mg tablet 40 mg PO DAILY Flovent HFA 110 mcg/actuation HFA aerosol inhaler 2 puff inhalation BID budesonide-formoterol [Symbicort] 160-4.5 mcg/actuation HFA aerosol inhaler 2 puff inhalation BID 30 Days Qty: 10.2 11RF cyclobenzaprine 5 mg tablet 5 mg PO TID PRN (Reason: muscle spasm) 7 Days Qty: 20 0RF rabeprazole [AcipHex] 20 mg tablet,delayed release (DR/EC) 20 mg PO BID Qty: 60 6RF Rx Instructions: PLEASE DISREGUARD RX FOR PANTOPRAZOLE sennosides [Senna Laxative] 8.6 mg tablet 34.4 mg PO BEDTIME Qty: 60 6RF simethicone [Gas Relief (simethicone)] 80 mg tablet,chewable 160 mg PO BEDTIME 30 Days Qty: 60 3RF calcium polycarbophil [Fiber Laxative (ca polycarbo)] 625 mg tablet 625 mg PO BID Qty: 60 6RF Discharge Date/Time: 06/09/24 19:25 Print Language: [place]
[2024-06-09 18:59] VITALS: BP 156/87; PULSE 89; RESP 18; TEMP 36.4; O2SAT 98; BMI 30.5
== END 2024-06-09 19:25 | disposition home or self-care (01) ==
LOC: HO.ED 19:09
PROVIDERS: Emergency Provider Emergency Medicine; PCP Internal Medicine
DX: B37.0 Candidal stomatitis (principal); Z79.899 Other long term (current) drug therapy
CPT/HCPCS: 99281; 99283

== ENCOUNTER 2024-06-11 22:58 | Emergency (ER) | payer OTHER, SELFPAY ==
--- NOTE | ~2024-06-11 | XR_ITS ---
EXAMINATION: XR CHEST CLINICAL INFORMATION: Chest pain COMPARISON: 07/02/2023 TECHNIQUE: 2 views of the chest were obtained. FINDINGS: The lungs are clear with no focal consolidation. No evidence of pneumothorax, pulmonary edema, or pleural effusions. The cardiomediastinal silhouette is unremarkable. No acute osseous findings. XR/XR chest 2V IMPRESSION: No acute cardiopulmonary findings. Electronically signed by: Aakash Cain MD 06/11/2024 11:28 PM EDT
--- NOTE | 2024-06-11 22:59 | ECG_ITS ---
Test Reason : CHEST PAIN Blood Pressure : / mmHG Vent. Rate : 111 BPM Atrial Rate : 111 BPM P-R Int : 312 ms QRS Dur : 084 ms QT Int : 320 ms P-R-T Axes : 000 178 116 degrees QTc Int : 435 ms Suspect limb lead reversal, interpretation assumes no reversal Normal sinus rhythm with Premature atrial complexes Right axis deviation Abnormal ECG When compared with ECG of 08-SEP-2020 09:28, QRS axis Shifted right Referred By: Generic ED Physician Electronically Signed By:CONSTANTINO GRACIA
[2024-06-11 23:08] VITALS: BP 160/91; PULSE 109; RESP 14; TEMP 36.9; O2SAT 96; BMI 28.2
[2024-06-11 23:18] LABS: MANUAL DIFF FLAG NO
[2024-06-11 23:21] LABS: Basophils Percent Auto 0.3 % (0-2); Eosinophils Absolute Auto 0.3 X10*3/uL (0.0-0.4); Eosinophils Percent Auto 1.7 % (0-4); Hemoglobin 14.3 g/dl (14.0-18.0); Imm Gran Abs Auto 0.08 X10*3/uL (0.00-0.03); Imm Gran Pct Auto 0.5 % (0.0-0.4); Lymphocytes Percent Auto 6.7 % (20-40); Mean Corpuscular HGB Conc 35.8 g/dl (31.0-36.0); Mean Corpuscular Hemoglobin 30.2 pg (27.0-33.0); Mean Corpuscular Volume 84.6 fL (80.0-98.0); Mean Platelet Volume 8.7 fL (9.4-12.4); Monocytes Absolute Auto 0.9 X10*3/uL (0.1-1.2); Monocytes Percent Auto 6.1 % (2-11); Neutrophils Percent Auto 84.7 % (45-73); Platelet Count 237 X10*3/uL (160-400); Red Blood Count 4.73 X10*6/uL (4.60-5.80); Red Cell Distribution Width 12.7 % (11.0-16.0); White Blood Count 15.3 X10*3/uL (4.8-10.8)
[2024-06-11 23:34] LABS: Alanine Aminotransferase 24 U/L (0-40); Albumin Level 4.7 g/dL (3.5-5.0); Alkaline Phosphatase 46 U/L (39-117); Anion Gap 16 (12-20); Aspartate Amino Transferase 20 U/L (5-37); Bilirubin Total 1.5 mg/dL (0.0-1.0); Blood Urea Nitrogen 13 mg/dL (9-16); Calcium 9.8 mg/dL (8.4-10.2); Carbon Dioxide 25 mmol/L (22-29); Chloride 99 mmol/L (96-108); Creatinine Clr Calc Pharmacy 94.6; Estimated Glomerular Filt Rate > 60; Glucose Random 185 mg/dL (60-115); Potassium 4.1 mmol/L (3.3-5.1); Sodium 136 mmol/L (135-145); Total Protein 7.9 g/dL (6.5-8.0)
[2024-06-11 23:41] LABS: Troponin-I High Sensitivity < 2.7 ng/L (<3.5-35.0)
== END 2024-06-12 00:23 | disposition left against medical advice (07) ==
PROVIDERS: Emergency Provider Emergency Medicine; PCP Internal Medicine
DX: R07.9 Chest pain, unspecified (principal); R06.02 Shortness of breath; Z53.21 Procedure and treatment not carried out due to patient leaving prior to being seen by health care provider
CPT/HCPCS: 36415; 71046; 80053; 84484; 85025; 93005; 99283

== ENCOUNTER 2024-06-19 10:51 | Outpatient (AMB) | payer OTHER, SELFPAY ==
--- NOTE | 2024-06-19 11:01 | A.OFFVIS_ITS ---
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 He has been followed closely by Pulmonary in the past. He has had worsening respiratory symptoms for the last few months. He has also has episodes where he feels significant chest tightness moderate severity. Usually when that happens he has a hard time breathing. He quickly needs to gives have a nebulizer treatment to improve his symptoms. He has is the symptoms are worse now in the summer, but, there also bed in the winter time in other seasons. He has not had any recent pulmonary function studies. He is not aware of having any allergy testing. He does not use inhalers but there hard for him to use. At this point will just focus on nebulized treatments to improve his respiratory capacity. Will need blood work in addition to pulmonary function studies. Patient also has sleep apnea. The sleep apnea therapy has been affecting beneficial. He does get supplies through [facility]. 06/24/2023 the patient is here for a pulmonary follow-up visit. He continues to have significant daytime drowsiness. His Warren score is elevated 08/30. Has a hard time where he is gasping for air from a sound sleep. The patient does have significant daytime drowsiness and also headaches. We did review his sleep study. Appears that he spent almost an hour below 88% and desaturated down to the low 80s. This probably explains his ongoing headache. In addition to that he was tachycardic. The patient also has significant sleep apnea. He has cardiovascular risk factors. The patient understands the CPAP is a very crucial treatment for him to minimize cardiovascular disease specially since he is already having chest discomfort while sleeping and evidence of significant tachycardia and increased physiological stress. He is agreeable to start CPAP at this time. Will set him up with a local [employer] company for him to be fitted with a mask in the equipment. The patient also continues with his respiratory medications. Asthma seems to be fairly good control. 10/18/2023 the patient is here for a pulmonary follow-up visit. The patient overall feels better. He is sleeping better he is using CPAP all night. The CPAP therapy has been affecting beneficial. Although sometimes he feels nauseous with it. He had to take off his mask once because he felt like he was going to vomit. He may have been swallowing some additional air. The patient is tolerating the mask and he does not want me to touch the pressures because if he feels the working appropriately. Therefore, the patient has found benefit from it. He is also complaining of pleuritic back pain. Primarily on the right side. He does have reproducible discomfort with the muscles a very spastic in likely has muscle strain in that area. I did reassure him that this is not his lung but it is causing significant discomfort. I will send him some Flexeril meantime he is going to continue with the homeopathic therapies. If no better he can follow-up with his primary care doctor. The patient did have a chest x- ray back in the fall which was reassuring overall. 06/19/2024 the patient is here for a pulmonary follow-up visit. Overall the patient is doing okay. However he has not been able to use CPAP because of significant sinusitis. Complains of sinus pressure and pain. Has noticed some bleeding from the nose. The patient had a prior to [id number] nasal sprays without any significant improvement. At this point he does have some inflammatory changes of the nasal passages. Hopefully once he feels better he can go back to using the CPAP. But for now I do agree he should hold off on the therapy. The patient restart antibiotics and also Afrin x5 days and he can also use antihistamine therapy. If the patient is no better then he can get a sinus x-ray. From a respiratory status the patient is doing well continues uses respiratory therapy as prescribed. Has not had to use his rescue inhaler more than once or twice a month. [facility] Medical History LEVI (obstructive sleep apnea) Other and unspecified hyperlipidemia Essential hypertension Type 2 diabetes mellitus with unspecified complications Back pain LEVI on CPAP Asthma Surgical History History of cardiac cath History of esophagogastroduodenoscopy (EGD) Hx of colonoscopy History of back surgery (~10/2020) Family History Son No problems noted. Father Stomach cancer Mother Cancer Heart problem Brother Cancer Social History Household Members: Spouse Alcohol intake: never Patient Tobacco Use Status: Never used Tobacco Review of Systems Const Denies daytime sleepiness, Denies night sweats and Denies snoring ENT Denies change in voice, Denies lip swelling, Denies mouth pain, Reports nasal congestion, Reports nasal discharge, Reports post nasal drip, Reports sinus pain, Reports sinus pressure and Denies tongue swelling Card Denies chest pain and Reports dyspnea on exertion Resp Reports cough, Reports dyspnea on exertion, Denies snoring and Denies wheezing GI Denies abdominal pain Musc Reports abnormal gait and Reports back pain Neuro Denies Neuro-related abnormal movements and Reports abnormal gait Psych Denies no additional complaints Renato/Lymph Denies easy bleeding and Denies lymphadenopathy Aller/Immun Denies lip swelling, Denies tongue swelling and Denies wheezing Physical Exam Vital Signs: Last Vital Signs Pulse 83 06/19/24 11:02 BP 136/70 06/19/24 11:02 Pulse Ox 98 06/19/24 11:02 Oxygen Delivery Method Room Air 06/19/24 11:02 BMI result Body Mass Index 28.0 Const General: alert Neck Neck: Yes normal visual inspection, Yes full ROM and Yes no lymphadenopathy Chest Chest palpation & inspection: normal inspection of the chest Resp Effort & Inspection: normal respiratory effort Auscultation: diminished lung sounds Cardio Rate: regular rate Rhythm: regular rhythm Heart sounds: S1 normal heart sound present and S2 normal heart sound present GI Palpation (GI): Soft to palpation and nontender Auscultation: normal bowel sounds Skin General skin exam: rashes and/or lesions noted Assessment & Plan Assessment & Plan (1) Asthma: Code(s): J45.909 - Unspecified asthma, uncomplicated Category: Medical Qualifiers: Asthma complication type: with acute exacerbation Asthma persistence: intermittent Asthma severity: mild Qualified Code(s): J45.21 - Mild intermittent asthma with (acute) exacerbation (2) LEVI (obstructive sleep apnea): Code(s): G47.33 - Obstructive sleep apnea (adult) (pediatric) Category: Medical (3) Chest pain: Code(s): R07.9 - Chest pain, unspecified Category: Medical Qualifiers: Chest pain type: unspecified Qualified Code(s): R07.9 - Chest pain, unspecified (4) Sinusitis: Code(s): J32.9 - Chronic sinusitis, unspecified Category: Medical Qualifiers: Chronicity: subacute Sinusitis location: maxillary Qualified Code(s): J01.00 - Acute maxillary sinusitis, unspecified Plan start doxycycline stopped Symbicort due to adverse effect, thrush EKATERINA as needed continue APAP start Claritin start Afrin x 5 days sinus xray if no better if the patient develops recurrent chest pains he needs to seek urgent medical advice specially with his increased cardiovascular risk factors F/U 4-6 months Orders: Orders XR sinus min 3V 06/19/24 J01.00 - Acute maxillary sinusitis, unspecified Medications: New doxycycline hyclate 100 mg PO BID 20 caps 0RF 10 days loratadine (Claritin) 10 mg PO DAILY 30 tabs 11RF 30 days J30.2 - Other seasonal allergic rhinitis, J45.909 - Unspecified asthma, uncomplicated Coding Level of Care Code Est Pt Level 4 (21722) Diagnoses Mild intermittent asthma with acute exacerbation J45.21 Asthma complication type: with acute exacerbation Asthma persistence: intermittent Asthma severity: mild LEVI (obstructive sleep apnea) G47.33 Chest pain R07.9 Chest pain type: unspecified Subacute maxillary sinusitis J01.00 Chronicity: subacute Sinusitis location: maxillary Time Spent (min) 16
[2024-06-19 11:02] VITALS: BP 136/70; PULSE 83; O2SAT 98; BMI 28.0
== END 2024-06-19 11:24 | disposition home or self-care (01) ==
PROVIDERS: PCP Internal Medicine; Visit Provider Hospitalist
DX: J45.21 Mild intermittent asthma with (acute) exacerbation (principal); G47.33 Obstructive sleep apnea (adult) (pediatric); R07.9 Chest pain, unspecified; J01.00 Acute maxillary sinusitis, unspecified
CPT/HCPCS: 99214

== ENCOUNTER → 2024-06-19 10:51 | Outpatient (BNVA) | payer OTHER, SELFPAY | PROVIDERS: PCP Internal Medicine; Visit Provider Hospitalist | DX: J45.21 Mild intermittent asthma with (acute) exacerbation (principal); J01.00 Acute maxillary sinusitis, unspecified; J30.2 Other seasonal allergic rhinitis; G47.33 Obstructive sleep apnea (adult) (pediatric); R07.9 Chest pain, unspecified | CPT/HCPCS: 99212 ==

== ENCOUNTER 2024-08-04 08:44 | Outpatient (REF) | payer OTHER, SELFPAY | END 2024-08-04 08:45 | disposition home or self-care (01) | LOC: HO.US 08:44 | PROVIDERS: PCP Internal Medicine; Visit Provider Internal Medicine | DX: E04.1 Nontoxic single thyroid nodule (principal) | CPT/HCPCS: 76536 ==

== ENCOUNTER 2024-10-13 10:43 | Outpatient (AMB) | payer OTHER, SELFPAY ==
--- NOTE | 2024-10-13 10:48 | A.OFFVIS_ITS ---
Vital Signs 10/13/24 10:49 Height 5 ft 7 in Weight 190 lb 11.198 oz BMI 29.9 BP 140/70 H Blood Pressure Location Lt brachial Position Sitting Pulse 70 Pulse Source Pulse Oximeter Pulse Oximetry (%) 99 Oxygen Delivery Method Room Air Intake Visit Reasons: Asthma Allergies Penicillins [PENICILLINS] Allergy (Severe, Verified 10/13/24 10:52) ALFA MÁRQUEZ Comments Details: The patient is a 58-year-old gentleman known history of asthma in addition to obstructive sleep apnea. He has been followed closely by Pulmonary in the past. He has had worsening respiratory symptoms for the last few months. He has also has episodes where he feels significant chest tightness moderate severity. Usually when that happens he has a hard time breathing. He quickly needs to gives have a nebulizer treatment to improve his symptoms. He has is the symptoms are worse now in the summer, but, there also bed in the winter time in other seasons. He has not had any recent pulmonary function studies. He is not aware of having any allergy testing. He does not use inhalers but there hard for him to use. At this point will just focus on nebulized treatments to improve his respiratory capacity. Will need blood work in addition to pulmonary function studies. Patient also has sleep apnea. The sleep apnea therapy has been affecting beneficial. [facility] 06/24/2023 the patient is here for a pulmonary follow-up visit. He continues to have significant daytime drowsiness. His [place] score is elevated 11/24. Has a hard time where he is gasping for air from a sound sleep. The patient does have significant daytime drowsiness and also headaches. We did review his sleep study. Appears that he spent almost an hour below 88% and desaturated down to the low 80s. This probably explains his ongoing headache. In addition to that he was tachycardic. The patient also has significant sleep apnea. He has cardiovascular risk factors. The patient understands the CPAP is a very crucial treatment for him to minimize cardiovascular disease specially since he is already having chest discomfort while sleeping and evidence of significant tachycardia and increased physiological stress. He is agreeable to start CPAP at this time. Will set him up with a local [employer] for him to be fitted with a mask in the equipment. The patient also continues with his respiratory medications. Asthma seems to be fairly good control. 10/18/2023 the patient is here for a pulmonary follow-up visit. The patient overall feels better. He is sleeping better he is using CPAP all night. The CPAP therapy has been affecting beneficial. Although sometimes he feels nauseous with it. He had to take off his mask once because he felt like he was going to vomit. He may have been swallowing some additional air. The patient is tolerating the mask and he does not want me to touch the pressures because if he feels the working appropriately. Therefore, the patient has found benefit from it. He is also complaining of pleuritic back pain. Primarily on the right side. He does have reproducible discomfort with the muscles a very spastic in likely has muscle strain in that area. I did reassure him that this is not his lung but it is causing significant discomfort. I will send him some Flexeril meantime he is going to continue with the homeopathic therapies. If no better he can follow-up with his primary care doctor. The patient did have a chest x- ray back in the fall which was reassuring overall. 06/19/2024 the patient is here for a pulmonary follow-up visit. Overall the patient is doing okay. However he has not been able to use CPAP because of significant sinusitis. Complains of sinus pressure and pain. Has noticed some bleeding from the nose. The patient had a prior to [id number] nasal sprays without any significant improvement. At this point he does have some inflammatory changes of the nasal passages. Hopefully once he feels better he can go back to using the CPAP. But for now I do agree he should hold off on the therapy. The patient restart antibiotics and also Afrin x5 days and he can also use antihistamine therapy. If the patient is no better then he can get a sinus x-ray. From a respiratory status the patient is doing well continues uses respiratory therapy as prescribed. Has not had to use his rescue inhaler more than once or twice a month. 10/13/2024 the patient is here for pulmonary follow-up visit. Overall he is doing okay. He does complaint of sometimes having hard time with CPAP. He did have a better mask. He rather have the P 30 I mask. I will go ahead and request 1 from his [employer] company. The PAP therapy continues to be affecting beneficial. He does try to use more than 4 hours a night. In addition to that he is complaining of some pleuritic back pain. He did have issues with a fall and subsequently rib fractures on the never healed well. He is wondering if is related to that. Will try some Motrin to see if we can provide some relief for some musculoskeletal discomfort. And if he is not getting any relief he can always come in and get a formal rib series to make sure that he is he fractures have healed. [facility] Medical History LEVI (obstructive sleep apnea) Other and unspecified hyperlipidemia Essential hypertension Type 2 diabetes mellitus with unspecified complications Back pain LEVI on CPAP Asthma Surgical History History of cardiac cath History of esophagogastroduodenoscopy (EGD) Hx of colonoscopy History of back surgery (~10/2020) Family History Son No problems noted. Father Stomach cancer Mother Cancer Heart problem Brother Cancer Social History Household Members: Spouse Alcohol intake: never Patient Tobacco Use Status: Never used Tobacco Review of Systems Const Denies daytime sleepiness, Denies night sweats and Denies snoring ENT Denies change in voice, Denies lip swelling, Denies mouth pain, Reports nasal congestion, Reports nasal discharge, Reports post nasal drip, Reports sinus pain, Reports sinus pressure and Denies tongue swelling Card Denies chest pain and Reports dyspnea on exertion Resp Reports cough, Reports dyspnea on exertion, Denies snoring and Denies wheezing GI Denies abdominal pain Musc Reports abnormal gait and Reports back pain Neuro Denies Neuro-related abnormal movements and Reports abnormal gait Psych Denies no additional complaints Renato/Lymph Denies easy bleeding and Denies lymphadenopathy Aller/Immun Denies lip swelling, Denies tongue swelling and Denies wheezing Physical Exam Vital Signs: Last Vital Signs Pulse 70 10/13/24 10:49 BP 140/70 H 10/13/24 10:49 Pulse Ox 99 10/13/24 10:49 Oxygen Delivery Method Room Air 10/13/24 10:49 BMI result Body Mass Index 29.9 Const General: alert Neck Neck: Yes normal visual inspection, Yes full ROM and Yes no lymphadenopathy Chest Chest palpation & inspection: normal inspection of the chest Resp Effort & Inspection: normal respiratory effort Auscultation: diminished lung sounds Cardio Rate: regular rate Rhythm: regular rhythm Heart sounds: S1 normal heart sound present and S2 normal heart sound present GI Palpation (GI): Soft to palpation and nontender Auscultation: normal bowel sounds Skin General skin exam: rashes and/or lesions noted Assessment & Plan Assessment & Plan (1) Asthma: Code(s): J45.909 - Unspecified asthma, uncomplicated Category: Medical Qualifiers: Asthma complication type: with acute exacerbation Asthma persistence: intermittent Asthma severity: mild Qualified Code(s): J45.21 - Mild intermittent asthma with (acute) exacerbation (2) LEVI (obstructive sleep apnea): Code(s): G47.33 - Obstructive sleep apnea (adult) (pediatric) Category: Medical (3) Chest pain: Code(s): R07.9 - Chest pain, unspecified Category: Medical Qualifiers: Chest pain type: unspecified Qualified Code(s): R07.9 - Chest pain, unspecified (4) Sinusitis: Code(s): J32.9 - Chronic sinusitis, unspecified Category: Medical Qualifiers: Chronicity: subacute Sinusitis location: maxillary Qualified Code(s): J01.00 - Acute maxillary sinusitis, unspecified (5) Back pain: Code(s): M54.9 - Dorsalgia, unspecified Category: Medical Qualifiers: Back pain laterality: right Back pain location: low back pain Chronicity: acute Sciatica laterality: sciatica of right side Sciatica presence: with sciatica Qualified Code(s): M54.41 - Lumbago with sciatica, right side Plan stopped Symbicort due to adverse effect, thrush EKATERINA as needed continue APAP Claritin as needed NSAIDS as needed rib series XRs is no better F/U 6-8 months Orders: Orders XR ribs BI min 4V w CXR1V Today M54.41 - Lumbago with sciatica, right side Medications: New ibuprofen 600 mg PO Q8H PRN 20 tabs 0RF pain 10 days Coding Level of Care Code Est Pt Level 4 (93255) Diagnoses Mild intermittent asthma with acute exacerbation J45.21 Asthma complication type: with acute exacerbation Asthma persistence: intermittent Asthma severity: mild LEVI (obstructive sleep apnea) G47.33 Chest pain R07.9 Chest pain type: unspecified Subacute maxillary sinusitis J01.00 Chronicity: subacute Sinusitis location: maxillary Acute right-sided low back pain with right-sided sciatica M54.41 Back pain laterality: right Back pain location: low back pain Chronicity: acute Sciatica laterality: sciatica of right side Sciatica presence: with sciatica Time Spent (min) 17
[2024-10-13 10:49] VITALS: BP 140/70; PULSE 70; O2SAT 99; BMI 29.9
== END 2024-10-13 11:19 | disposition home or self-care (01) ==
PROVIDERS: PCP Internal Medicine; Visit Provider Hospitalist
DX: J45.21 Mild intermittent asthma with (acute) exacerbation (principal); G47.33 Obstructive sleep apnea (adult) (pediatric); R07.9 Chest pain, unspecified; J01.00 Acute maxillary sinusitis, unspecified; M54.41 Lumbago with sciatica, right side
CPT/HCPCS: 99214

== ENCOUNTER → 2024-10-13 10:43 | Outpatient (BNVA) | payer OTHER, SELFPAY | PROVIDERS: PCP Internal Medicine; Visit Provider Hospitalist | DX: J45.21 Mild intermittent asthma with (acute) exacerbation (principal); G47.33 Obstructive sleep apnea (adult) (pediatric); J01.00 Acute maxillary sinusitis, unspecified; R07.9 Chest pain, unspecified; M54.41 Lumbago with sciatica, right side | CPT/HCPCS: 99212 ==

== ENCOUNTER 2024-11-18 09:03 | Outpatient (REF) | payer OTHER, SELFPAY ==
--- OUTSIDE RECORDS SUMMARY | 2024-11-18 09:57 | XMS_ITS ---
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 Generated for Charlette pulliam/Alvin/eTransmitting on:?11/18/2024 09:57 AM EST
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
--- OUTSIDE RECORDS SUMMARY | 2024-11-18 09:57 | XMS_ITS | Encounter Summary ---
Author Organization [employer] Address [address] [facility] 7t [place] [address] Care Team Providers Care Team Leader Surgery Name Role Phone Lit Khalil MD Primary Care Provide r Encounter Details Date Type Department Care Team (Latest Contact Info) Description 04/24/2019 Abstract [facility] CONVERSIONS Dental, Provider, DDS Social History Tobacco Use Types Packs/Day Years Used Date Smoking Tobacco: Never Assessed Sex and Gender Information Value Date Recorded Sex Assigned at Male 08/06/2022 10:14 AM EDT Legal Sex Male 10:14 AM EDT Gender Identity Male 08/06/2022 10:14 AM EDT Sexual Orientation Straight 08/06/2022 10 :14 AM EDT documented as of this encounter Plan of Treatment Upcoming Encounters Date Type Department Care Team (Late st Contact Info) Description 11/19/2024 11:00 AM EST Medication Management [facility] [address] [place] [phone] 11/24/2024 10:15 AM EST Office Visit [facility] [address] [place] [phone] Lit Khalil MD [address] [place] [phone] documented as of this encounter Visit Diagnoses Not on filedocumented in this encounter Care Teams Team Leader Surgery Relationship Specialty Start Date End Date Lit Khalil MD [address] [place] [phone] PCP - General Internal Medicine 08/15/15 documented as of this encounter
--- OUTSIDE RECORDS SUMMARY | 2024-11-18 09:57 | XMS_ITS ---
Author Organization [facility] Address [address] [place] [address] Care Team Providers Care Wedding Designer Name Role Phone Halina Jones MD, Lit Primary Care Provide r Unavailable Black, Radha Unavailable [phone] REASON FOR VISIT Cancel Encounters Encounter Location Date Provider Diagnosis [facility] [address] [place] [address] 09/10/2023 Radha Jean Baptiste Plan Of Treatment No Information Progress Notes * Fadi PATTERSONDOB:1965 ( 57 yo M)Acc No.[id number]:09/10/2023 Patient:?Fadi Patterson :1965???Age:57 Y???Sex:Male Address:[address], [place] [address] * true * Date:? Generated for Charlette pulliam/Alvin/eTransmitting on:?11/18/2024 09:57 AM EST
--- OUTSIDE RECORDS SUMMARY | 2024-11-18 09:57 | XMS_ITS | Encounter Summary ---
Author Organization [employer] Address [address] [facility] [address] [place] [address] Care Team Providers Care Access Database Developer Name Role Phone Lit Khalil MD Primary Care Provide r Reason for Visit * Reason Comments Pre-visit Planning SDOH Screening posit chirstophe and Tobacco screening negative Encounter Details Date Type Department Care Team ([facility] st Contact Info) Description 11/09/2024 Patient Outreach [facility] [address] [place], [place] [phone] Lit Khalil MD [address] [place], [place] [phone] Pre-visit Planning (SDOH Screening positive and Tobacco screening negative) Social History Tobacco Use Types Packs/Day Years Used Date Smoking Tobacco: Never Passive Smoke Exposure: Never Smokeless Tobacco: Never Alcohol Answer Date Recorded Frequency of Alcohol [...] AM EDT documented as of this encounter Progress Notes * Jannie Levine - 11/09/2024 10:40 AM EST SOFIE Leger placed successful outbound call to patient for pre-visit planning. Patient name and confirmed. Patient confirms appt date and time, and has transportation arrangements. Biggest concern for appointment at this time is couple of his family member had due to stomach and prostate cancer. When patient eats sometimes hurts on the left side and also when he uses the bathroomfor a bowel movement it hurts. Patient advised to bring to appointment a photo id and insurance card. Appropriate screenings completed in anticipation of appointment. SDOH positive. Patient looking for assistance with Food insecurities: Sometimes. Referral will be placed. documented in this encounter Plan of Treatment Upcoming Encounters Date Type Department Care Team ([facility] st Contact Info) Description 11/19/2024 11:00 AM EST Medication Management [facility] [address] [place] [phone] 11/24/2024 10:15 AM EST Office Visit [facility] [address] [facility] [place] [address] Lit Khalil MD [address] [facility] [place] [address] documented as of this encounter Visit Diagnoses Not on filedocumented in this encounter Additional Health Concerns Assessment Noted Time PHQ-9 Depression Total Score: 20 024 9:13 AM EDT documented as of this encounter Care Teams Access Database Developer Relationship Specialty Start Date End Date Lit Khalil MD [address] [facility] [place] [address] PCP - General Internal Medicine 08/15/15 documented as of this encounter
--- OUTSIDE RECORDS SUMMARY | 2024-11-18 09:57 | XMS_ITS | Encounter Summary ---
Author Organization [employer] Address [address] [facility] [address] 7[address] [place] [address] Care Team Providers Care Home Appliance Technician Name Role Phone Lit Khalil MD Primary Care Provide r Reason for Visit * Reason Onset Date Comments Chart Prep 11/12/2024 Encounter Details Date Type Department Care Team ([facility] st Contact Info) Description 11/12/2024 Telephone [facility] [address] [place], [place] [phone] Lit Khalil MD [address] [place], [place] [phone] Chart Prep Social History Tobacco Use Types Packs/Day Years [...] AM EDT documented as of this encounter Miscellaneous Notes * Telephone Encounter - Karen Fam MA - 11/12/2024 10:27 AM EST Chart Prep Labs: not done Images: done Vaccines due: Covid Due, Hep B Due, PCV20 Due, and Shingles in pharmacy Due Referrals: Not Applicable Screenings: Colonoscopy , Foot Exam, and HIV screening Overdue care gaps: A1C and Glucose Chart prep for upcoming appt with Dr.Esparza magaña. LB documented in this encounter Plan of Treatment Upcoming Encounters Date Type Department Care Team (Late st Contact Info) Description 11/19/2024 11:00 AM EST Medication Management [facility] [address] [place] [phone] 11/24/2024 10:15 AM EST Office Visit [facility] [address] [place] [address] Lit Khalil MD [address] [place] [phone] documented as of this encounter Visit Diagnoses Not on filedocumented in this encounter Additional Health Concerns Assessment Noted Time PHQ-9 Depression Total Score: 20 024 9:13 AM EDT documented as of this encounter Care Teams Home Appliance Technician Relationship Specialty Start Date End Date Lit Khalil MD [address] [place] [address] PCP - General Internal Medicine 08/15/15 documented as of this encounter
--- OUTSIDE RECORDS SUMMARY | 2024-11-18 09:57 | XMS_ITS | Encounter Summary ---
Author Organization [employer] Address [address] [facility] 7t [place] [address] Care Team Providers Care Agility Instructor Name Role Phone Lit Khalil MD Primary Care Provide r Encounter Details Date Type Department Care Team (Late st Contact Info) Description 02/14/[address] [facility] [address] [place] [phone] Lit hKalil MD [address] [place] [phone] Social History Tobacco Use Types Packs/Day Years [...] Description 11/19/2024 11:00 AM EST Medication Management [address] [phone] 11/24/2024 10:15 AM EST Office Visit [address] [phone] Lit Khalil MD [address] [place] [phone] documented as of this encounter Procedures Procedure Name Priority Date/Time Associated Diagnosis Comments COLONOSCOPY Routine 05/03/2020 documented in this encounter Results * Colonoscopy (05/03/2020) Colonoscopy Normal Normal 05/03/2020 Franchesca Quesada - 05/03/2020 9:13 AM EDT Recommended 5 year follow up Historical Provider [facility] MAINTENANCE Edited Result - Final documented in this encounter Visit Diagnoses Not on filedocumented in this encounter Care Teams Agility Instructor Relationship Specialty Start Date End Date Lit Khalil MD [address] [place] [phone] PCP - General Internal Medicine 08/15/15 documented as of this encounter
--- OUTSIDE RECORDS SUMMARY | 2024-11-18 09:57 | XMS_ITS | Encounter Summary ---
Author Organization [employer] Address [address] [facility] [address] [place] [address] Care Team Providers Care Functional Mental Disability Teacher Name Role Phone Lit Khalil MD Primary Care Provide r Reason for Visit * Reason Comments Care Coordination CHW outreach for SDO H PT-1 and food needs-referral completed Encounter Details Date Type Department Care Team (Latest Contact Info) Description 11/09/2024 Patient Outreach [facility] [address] [place], [place] [phone] Lit Khalil MD [address] [place], [place] [phone] Care Coordination (CHW outreach for SDOH PT-1 and food needs-referral completed /) Social History Tobacco Use Types Packs/Day Years [...] as of this encounter Progress Notes * Martin Malhotra - 11/09/2024 11:26 AM EST CHW Martin Malhotra, placed outbound call to patient for assistance with SDOH as a referral was received by the provider. Patient's name and were confirmed. Patient screened positive for the following SDOH food insecurities. CHW referral patient to the local list of pantries in the area for help. PT-1 requested was send out in behalf of patient for futures appt. Patient verbalizes understandin g, and able to agree with plan to follow up. Patient educated on extended clinic hours on Mondays through Wednesdays, and Walk-In Urgent Care Located in [facility]. Patient provided with after-hours line for [facility], , which offer night time triage service and option to transfer to client solutions manager provider if needed. documented in this encounter Plan of Treatment Upcoming Encounters Date Type Department Care Team (Late st Contact Info) Description 11/19/2024 11:00 AM EST Medication Management [facility] [address] [place] [address] 11/24/2024 10:15 AM EST Office Visit [facility] [address] [place] [address] Lit Khalil MD [address] [place] [phone] documented as of this encounter Visit Diagnoses Not on filedocumented in this encounter Additional Health Concerns Assessment Noted Time PHQ-9 Depression Total Score: 20 024 9:13 AM EDT documented as of this encounter Care Teams Functional Mental Disability Teacher Relationship Specialty Start Date End Date [place] [address] PCP - General Internal Medicine 08/15/15 documented as of this encounter
--- OUTSIDE RECORDS SUMMARY | 2024-11-18 09:57 | XMS_ITS | Encounter Summary ---
Author Organization [email or web address] Address [address] [place] [address] Care Team Providers Care Powerhouse Engineer Name Role Phone Lit Khalil MD Primary Care Provide r Reason for Visit * Reason Comments Med Refill Encounter Details Date Type Department Care Team ([facility] st Contact Info) Description 10/26/2024 Refill [facility] [address] [place], [place] [phone] Jacqueline Guerrero NP [address] [place], [place] [phone] Type 2 diabetes mellitus without complication, without long-term current use of insulin ([facility]) Social History Tobacco Use Types Packs/Day Years [...] before you got money to buy more: Never True 07/23/2024 Within the past 12 months,th e food you bought just didn't last and you didn't have enough money to get more: Never True Transportation Answer Date Recorded In the past [...] Description 11/19/2024 11:00 AM EST Medication Management [facility] [address] [place] [phone] 11/24/2024 10:15 AM EST Office Visit [facility] [address] [place] [address] Lit Khalil MD [address] [place] [address] documented as of this encounter Visit Diagnoses Diagnosis Type 2 diabetes mellitus without complication, without long-term current use of insulin ([facility]) documented in this encounter Additional Health Concerns Assessment Noted Time PHQ-9 Depression Total Score: 20 024 9:13 AM EDT documented as of this encounter Care Teams Powerhouse Engineer Relationship Specialty Start Date End Date Lit Khalil MD [address] [place] [id number] PCP - General Internal Medicine 08/15/15 documented as of this encounter
--- OUTSIDE RECORDS SUMMARY | 2024-11-18 09:57 | XMS_ITS | Encounter Summary ---
Author Organization [employer] Address [address] [facility] [address] [place] [address] Care Team Providers Care Rectification Printer Name Role Phone Lit Khalil MD Primary Care Provide r Reason for Visit * Reason Comments Med Refill Encounter Details Date Type Department Care Team ([facility] st Contact Info) Description 08/09/2024 Refill [facility] [address] [place] [address] Lit Khalil MD [address] [place], [place] [phone] Type 2 diabetes mellitus with diabetic polyneuropathy, without long-term current use of insulin ([facility]) Social History Tobacco Use Types Packs/Day Years [...] the past 12 months, has t he [employer], gas, oil or water company threatened to [...] Description 11/19/2024 11:00 AM EST Medication Management [facility] [address] [place] [address] 11/24/2024 10:15 AM EST Office Visit [facility] [address] [place] [address] Lit Khalil MD [address] [place] [address] documented as of this encounter Visit Diagnoses Diagnosis Type 2 diabetes mellitus with diabetic polyneuropathy, without long-term current use of insulin ([facility]) documented in this encounter Additional Health Concerns Assessment Noted Time PHQ-9 Depression Total Score: 20 024 9:13 AM EDT documented as of this encounter Care Teams Rectification Printer Relationship Specialty Start Date End Date Lit Khalil MD [address] [place] [id number] PCP - General Internal Medicine 08/15/15 documented as of this encounter
--- OUTSIDE RECORDS SUMMARY | 2024-11-18 09:58 | XMS_ITS ---
Author Organization [facility] Address [address] [place] [address] Care Team Providers Care Hair Colorist Name Role Phone Halina Jones MD, Lit Primary Care Provide r Unavailable Markel, Radha Unavailable [phone] Encounters Encounter Location Date Provider Diagnosis [facility] [address] [place] [address] 11/21/2023 Radha Jean Baptiste Plan Of Treatment No Information Progress Notes * Fadi PATTERSONDOB:1965 ( 59 yo M)Acc No.[id number]:11/21/2023 Progress Notes Patient:?Fadi PATTERSON Provider:?Radha Jean Baptiste DPM :1965???Age:58 Y???Sex:Male Jacob e:11/21/2023 Address:[address], [address], [id number] Pcp:Lit Jones MD Subjective: * Chief Complaints: * ??? * Medical History:? Objective: * Vitals:? Assessment: Plan: * Treatment: * Images: * The named appointment provid er may or may not be the originator of this progress note, and it is not deemed complete until electronically signed by the appointment provider. Sign off status: Pending * Provider:?Radha Jean Baptiste DPM Date:?2023 Generated for Charlette pulliam/Avlin/Madysmitting on:?11/18/2024 09:57 AM EST
--- OUTSIDE RECORDS SUMMARY | 2024-11-18 09:59 | XMS_ITS | Clinical Summary ---
Author Organization [facility] ity Address [address] [place] [address] Care Team Providers Care World Designer Name Role Phone Unavailable Primary Care Provider Unavailabl e Social History Tobacco Use Types Packs/Day Years Used Date Smoking Tobacco: Never Assessed Sex and Gender Information Value Date Recorded Sex Assigned at Not on file Legal Sex Male 1:55 PM EST Gender Identity Not on file Sexual Orientation Not on file Plan of Treatment Health Maintenance Due Date Last Done Comments DTaP,Tdap,and Td Vaccines (1 - Tdap) 1984 Hepatitis B Vaccines (1 of 3 - 19+ 3-dose series) 1984 Pneumococcal Vaccine: 50+ Ye ars (1 of 1 - PCV) 2015 Zoster Vaccines (1 of 2) 2015 COVID-19 Vaccine ( - 2023-2 5 season) 2024 Influenza Vaccine (#1) 2024 RSV Immunization Patients 60 + Years Old (1 - 1-dose 75+ series) 2040 HIB Vaccines Aged Out No longer eligi [...] on patient's age to complete this topic MMR Vaccines Aged Out No longer eligi ble based on patient's age to complete this topic Meningococcal ACWY Vaccine Aged Out N o longer eligible based on patient's age to complete this topic Meningococcal B Vacine Aged Out No lo nger eligible based on patient's age to complete this topic Pneumococcal Vaccine: Pediat rics (0 to 5 Years) and At-Risk Patients (6 to 64 Years) Aged Out No longer eligible b ased on patient's age to complete this topic RSV Immunization Patients Un todd 20 months Aged Out No longer eligible b ased on patient's age to complete this topic Varicella Vaccines Aged Out No longer eligible based on patient's age to complete this topic
--- OUTSIDE RECORDS SUMMARY | 2024-11-18 09:59 | XMS_ITS | Patient Health Record ---
Author Organization [facility] Address [address] [place] [address] Care Team Providers Care Media Intern Name Role Phone Halina Jones MD, [facility] Primary Care Provide r Unavailable BlackRadha Unavailable [phone] Reason For Referral No Information Plan Of Treatment No Information Insurance Providers Payer Name Payer Address Payer Phone Subscriber Number Group Number Insured Name Patient Relationship to Insured Coverage Start Date Coverage End Date [facility] [employer] Claims [address] [place] [id number] Fadi Patterson Self - patient is the insured
[2024-11-18 11:56] LABS: Creatinine Urine 125.71 mg/dL; Microalbum/Creatinine Ratio Ur 24.6 ug/mg cr (<30)
[2024-11-18 12:02] LABS: Cholesterol 172 mg/dL (<200); HDL Cholesterol 36 mg/dL (>40); LDL Cholesterol Calculated 111 mg/dL (<100); Triglycerides 126 mg/dL (<150)
== END 2024-11-18 09:04 | disposition home or self-care (01) ==
LOC: HO.HHCL 09:03
PROVIDERS: Visit Provider Internal Medicine
DX: I10 Essential (primary) hypertension (principal); E11.42 Type 2 diabetes mellitus with diabetic polyneuropathy
CPT/HCPCS: 36415; 80061; 82043; 82570

== ENCOUNTER 2024-11-24 11:10 | Emergency (ER) | payer OTHER, SELFPAY ==
[2024-11-24 11:24] VITALS: BP 160/91; PULSE 95; RESP 20; TEMP 36.9; O2SAT 99; BMI 29.6
--- NOTE | 2024-11-24 11:28 | ED_ITS ---
HPI - General Adult General Chief complaint: Abdominal Pain Stated complaint: L Ab Pain Related Data Home Medications ?Medication ?Instructions ?Recorded ?Confirmed bupropion HCl 300 mg 24 hr tablet, 300 mg PO QAM 08/01/20 01/18/22 extended release lorazepam 0.5 mg tablet 0.5 mg PO BID PRN 08/01/20 01/18/22 trazodone 100 mg tablet 100 mg PO BEDTIME 08/01/20 01/18/22 albuterol sulfate 90 mcg/actuation 2 inh inhalation Q8H 03/28/21 01/18/22 aerosol inhaler amlodipine 5 mg tablet 5 mg PO DAILY 06/21/21 01/18/22 atorvastatin 40 mg tablet 40 mg PO BEDTIME 06/21/21 01/18/22 lidocaine 5 % topical patch 1 patch topical DAILY 06/29/21 01/18/22 ibuprofen 600 mg tablet 600 mg PO TID 12/21/21 01/18/22 lisinopril 40 mg tablet 40 mg PO DAILY 12/21/21 01/18/22 fluticasone propionate 110 2 puff inhalation BID 01/18/22 01/18/22 mcg/actuation HFA aerosol inhaler (Flovent HFA) metformin 1,000 mg tablet 1,000 mg PO DAILY 03/05/23 Previous Rx's ?Medication ?Instructions ?Recorded acetaminophen 500 mg tablet 500 mg PO Q6H PRN pain or fever 09/08/20 (Tylenol Extra Strength) #20 tabs ascorbic acid (vitamin C) 500 mg 500 mg PO Q12H #60 tabs 05/07/21 tablet,extended release calcium polycarbophil 625 mg 625 mg PO BID #60 tabs 06/19/23 tablet (Fiber Laxative (calcium polycarbophil)) metoprolol succinate 25 mg 25 mg PO DAILY #90 tabs 08/27/23 tablet,extended release 24 hr budesonide-formoterol HFA 160 2 puff inhalation BID 30 days 10/18/23 mcg-4.5 mcg/actuation aerosol #10.2 grams inhaler (Symbicort) cyclobenzaprine 5 mg tablet 5 mg PO TID PRN muscle spasm 7 10/18/23 days #20 tabs rabeprazole 20 mg tablet,delayed 20 mg PO BID #60 tabs 04/07/24 release (AcipHex) sennosides 8.6 mg tablet (Senna 34.4 mg (4 x 8.6 mg) PO BEDTIME 04/07/24 Laxative) #60 tabs simethicone 80 mg chewable tablet 160 mg (2 x 80 mg) PO BEDTIME 30 04/07/24 (Gas Relief (simethicone)) days #60 tabs nystatin 100,000 unit/mL oral 500,000 unit (5 mL) buccal Q6H 7 06/09/24 suspension days #200 mL doxycycline hyclate 100 mg capsule 100 mg PO BID 10 days #20 caps 06/19/24 loratadine 10 mg tablet (Claritin) 10 mg PO DAILY 30 days #30 tabs 06/19/24 ibuprofen 600 mg tablet 600 mg PO Q8H PRN pain 10 days #20 10/13/24 tabs Allergies Allergy/AdvReac Type Severity Reaction Status Date / Time Penicillins [PENICILLINS] Allergy Severe HIVES Verified 11/24/24 11:28 [facility] Past Medical History Medical History LEVI (obstructive sleep apnea) Other and unspecified hyperlipidemia Essential hypertension Type 2 diabetes mellitus with unspecified complications Back pain LEVI on CPAP Asthma Surgical History History of cardiac cath History of esophagogastroduodenoscopy (EGD) Hx of colonoscopy History of back surgery (~10/2020) Family History Family History Son No problems noted. Father Stomach cancer Mother Cancer Heart problem Brother Cancer Social History Social History Household Members: Spouse Alcohol intake: never Patient Tobacco Use Status: Never used Tobacco Advance Directives: No Advance Directives Information Provided: No Do you have a plan to hurt others: No Plan Physical Exam ED Vital Signs: Vital Signs - 24 hr 11/24/24 11:24 Temperature 98.4 F Pulse Rate 95 Respiratory Rate 20 Blood Pressure 160/91 H Pulse Oximetry 99 Oxygen Delivery Method Room Air BMI result Body Mass Index 29.6 Course Course Course Narrative: This is an RME: Additional HPI, ROS, PE not included below will be deferred to primary provider. RME assessment and note performed by: Rosalie Jarrett PA-C This is a 59-year-old Occitan-speaking male, with a past medical history of type 2 diabetes, LEVI on CPAP, asthma, hypertension, hyperlipidemia, who presents emergency department with concerns for abdominal pain, urinary frequency, urgency, and rectal pain. He states that this has been ongoing for the last 2 weeks however worsened over the last several days. Plan: Labs, UA, will defer diagnostic imaging until seen by primary provider. Reevaluation(s) Reevaluation #1: Patient left without completing treatment. Medical Decision Making Lab Data 11/24/24 11:41 11/24/24 11:41 Labs: Lab Results 11/24/24 Range/Units 11:41 WBC 6.8 (4.8-10.8) X10*3/uL RBC 4.72 (4.60-5.80) X10*6/uL Hgb 13.7 L (14.0-18.0) g/dl Hct 39.7 L (42.0-52.0) % MCV 84.1 (80.0-98.0) fL MCH 29.0 (27.0-33.0) pg MCHC 34.5 (31.0-36.0) g/dl RDW 13.2 (11.0-16.0) % Plt Count 217 (160-400) X10*3/uL MPV 8.6 L (9.4-12.4) fL Immature Gran % (Auto) 0.3 (0.0-0.4) % Neut % (Auto) 68.1 (45-73) % Lymph % (Auto) 22.0 (20-40) % [place] % (Auto) 7.6 (2-11) % Eos % (Auto) 1.6 (0-4) % Baso % (Auto) 0.4 (0-2) % Lymph # (Auto) 1.5 (1.2-4.9) X10*3/uL [place] # (Auto) 0.5 (0.1-1.2) X10*3/uL Eos # (Auto) 0.1 (0.0-0.4) X10*3/uL Baso # (Auto) 0.0 (0.0-0.2) X10*3/uL Abs Immat Gran (auto) 0.02 (0.00-0.03) X10*3/uL Absolute Neuts (auto) 4.7 (2.0-8.3) x10*3/uL Absolute Nucleated RBC 0.000 (0.0-0.012) X10*3/uL Nucleated RBC % (auto) 0.0 (0.0-0.2) /100WBC Sodium 140 (135-145) mmol/L Potassium 4.3 (3.3-5.1) mmol/L Chloride 106 (96-108) mmol/L Carbon Dioxide 26 (22-29) mmol/L Anion Gap 12 (12-20) BUN 11 (9-16) mg/dL Creatinine 0.82 (0.5-1.4) mg/dL Estim Creat Clear Calc 101.4 Estimated GFR > 60 Random Glucose 170 H (60-115) mg/dL Calcium 9.0 D (8.4-10.2) mg/dL Magnesium 1.6 (1.6-2.6) mg/dL Total Bilirubin 1.1 H (0.0-1.0) mg/dL Direct Bilirubin 0.2 (0.0-0.5) mg/dL AST 55 H (5-37) U/L ALT 38 (0-40) U/L Alkaline Phosphatase 42 (39-117) U/L Total Protein 7.8 (6.5-8.0) g/dL Albumin 4.4 (3.5-5.0) g/dL Lipase 21 (8-78) U/L Urine Color Yellow Urine Appearance Clear Urine pH 7.0 (5.0-9.0) Ur Specific Clarence 1.010 (1.005-1.025) Urine Protein Negative (Neg-Trace) mg/dL Urine Glucose (UA) Negative (Negative) mg/dL Urine Ketones Negative (Negative) mg/dL Urine Blood Negative (Negative) Urine Nitrite Negative (Negative) Ur Leukocyte Esterase Negative (Negative) Discharge Plan Discharge Clinical Impression: Abdominal pain Patient Disposition: Left W/O Completing Treatment Prescriptions: No Action metoprolol succinate 25 mg tablet extended release 24 hr 25 mg PO DAILY Qty: 90 3RF acetaminophen [Tylenol Extra Strength] 500 mg tablet 500 mg PO Q6H PRN (Reason: pain or fever) Qty: 20 0RF nystatin 100,000 unit/mL suspension 500,000 unit buccal Q6H 7 Days Qty: 200 0RF Rx Instructions: administer 1/2 of dose in each side of the mouth bupropion HCl 300 mg tablet extended release 24 hr 300 mg PO QAM trazodone 100 mg tablet 100 mg PO BEDTIME lorazepam 0.5 mg tablet 0.5 mg PO BID PRN albuterol sulfate 90 mcg/actuation HFA aerosol inhaler 2 inh inhalation Q8H ascorbic acid (vitamin C) 500 mg Tablet Extended Release 500 mg PO Q12H Qty: 60 4RF metformin 1,000 mg tablet 1,000 mg PO DAILY lidocaine 5 % adhesive patch,medicated 1 patch topical DAILY amlodipine 5 mg tablet 5 mg PO DAILY atorvastatin 40 mg tablet 40 mg PO BEDTIME ibuprofen 600 mg tablet 600 mg PO TID lisinopril 40 mg tablet 40 mg PO DAILY Flovent HFA 110 mcg/actuation HFA aerosol inhaler 2 puff inhalation BID budesonide-formoterol [Symbicort] 160-4.5 mcg/actuation HFA aerosol inhaler 2 puff inhalation BID 30 Days Qty: 10.2 11RF cyclobenzaprine 5 mg tablet 5 mg PO TID PRN (Reason: muscle spasm) 7 Days Qty: 20 0RF doxycycline hyclate 100 mg capsule 100 mg PO BID 10 Days Qty: 20 0RF loratadine [Claritin] 10 mg tablet 10 mg PO DAILY 30 Days Qty: 30 11RF rabeprazole [AcipHex] 20 mg tablet,delayed release (DR/EC) 20 mg PO BID Qty: 60 6RF Rx Instructions: PLEASE DISREGUARD RX FOR PANTOPRAZOLE sennosides [Senna Laxative] 8.6 mg tablet 34.4 mg PO BEDTIME Qty: 60 6RF simethicone [Gas Relief (simethicone)] 80 mg tablet,chewable 160 mg PO BEDTIME 30 Days Qty: 60 3RF calcium polycarbophil [Fiber Laxative (ca polycarbo)] 625 mg tablet 625 mg PO BID Qty: 60 6RF ibuprofen 600 mg tablet 600 mg PO Q8H PRN (Reason: pain) 10 Days Qty: 20 0RF Discharge Date/Time: 11/24/24 17:31
[2024-11-24 11:46] LABS: MANUAL DIFF FLAG NO
[2024-11-24 11:49] LABS: Appearance Urine Clear; Basophils Percent Auto 0.4 % (0-2); Color Urine Yellow; Eosinophils Absolute Auto 0.1 X10*3/uL (0.0-0.4); Eosinophils Percent Auto 1.6 % (0-4); Glucose Urine UA Negative (Negative); Hematocrit 39.7 % (42.0-52.0); Hemoglobin 13.7 g/dl (14.0-18.0); Imm Gran Abs Auto 0.02 X10*3/uL (0.00-0.03); Imm Gran Pct Auto 0.3 % (0.0-0.4); Leukocyte Esterase Urine Negative (Negative); Lymphocytes Absolute Auto 1.5 X10*3/uL (1.2-4.9); Mean Corpuscular HGB Conc 34.5 g/dl (31.0-36.0); Mean Corpuscular Volume 84.1 fL (80.0-98.0); Mean Platelet Volume 8.6 fL (9.4-12.4); Monocytes Absolute Auto 0.5 X10*3/uL (0.1-1.2); Monocytes Percent Auto 7.6 % (2-11); Neutrophils Absolute Auto 4.7 x10*3/uL (2.0-8.3); Neutrophils Percent Auto 68.1 % (45-73); Nitrite Urine Negative (Negative); Platelet Count 217 X10*3/uL (160-400); Red Blood Count 4.72 X10*6/uL (4.60-5.80); Red Cell Distribution Width 13.2 % (11.0-16.0); Urine Blood Negative (Negative); Urine Ketones Negative (Negative); Urine Protein Negative (Neg-Trace); White Blood Count 6.8 X10*3/uL (4.8-10.8)
[2024-11-24 12:12] LABS: Albumin Level 4.4 g/dL (3.5-5.0); Alkaline Phosphatase 42 U/L (39-117); Anion Gap 12 (12-20); Aspartate Amino Transferase 55 U/L (5-37); Bilirubin Direct 0.2 mg/dL (0.0-0.5); Bilirubin Total 1.1 mg/dL (0.0-1.0); Blood Urea Nitrogen 11 mg/dL (9-16); Carbon Dioxide 26 mmol/L (22-29); Chloride 106 mmol/L (96-108); Creatinine Clr Calc Pharmacy 101.4; Estimated Glomerular Filt Rate > 60; Glucose Random 170 mg/dL (60-115); Lipase 21 U/L (8-78); Magnesium 1.6 mg/dL (1.6-2.6); Potassium 4.3 mmol/L (3.3-5.1); Sodium 140 mmol/L (135-145); Total Protein 7.8 g/dL (6.5-8.0)
[2024-11-24 12:39] LABS: Alanine Aminotransferase 38 U/L (0-40)
--- OUTSIDE RECORDS SUMMARY | 2024-11-24 17:28 | XMS_ITS ---
Author Organization [facility] Address [address] [place] [address] Care Team Providers Care Body Mechanic Apprentice Name Role Phone Halina Jones MD, Lit Primary Care Provide r Unavailable Black, Radha Unavailable [phone] REASON FOR VISIT Cancel Encounters Encounter Location Date Provider Diagnosis [facility] [address] [place] [address] 09/10/2023 Radha Jean Baptiste Plan Of Treatment No Information Progress Notes * Fadi PATTERSONDOB:1965 ( 57 yo M)Acc No.[id number]:09/10/2023 Patient:?Fadi Patterson :1965???Age:57 Y???Sex:Male Address:[address], [place] [address] * true * Date:? Generated for Charlette pulliam/Alvin/eTransmitting on:?11/24/2024 05:28 PM EST
--- OUTSIDE RECORDS SUMMARY | 2024-11-24 17:28 | XMS_ITS | Encounter Summary ---
Author Organization [employer] Address [address] [facility] [address]t [place] [address] Care Team Providers Care Director Advanced Name Role Phone Lit Khalil MD Primary Care Provide r Encounter Details Date Type Department Care Team (Latest Contact Info) Description 04/24/2019 Abstract [facility] Dental, Provider, DDS Social History Tobacco [...] Care Team (Late st Contact Info) Description 12/10/2024 9:15 AM EST Office Visit [facility] [address] [place] [address] Lit Khalil MD [address] [place] [address] 12/10/2024 2:00 PM EST Medication Management [address] [address] documented as of this encounter Visit Diagnoses Not on filedocumented in this encounter Care Teams Director Advanced Relationship Specialty Start Date End Date Lit Khalil MD [address] [place] [address] PCP - General Internal Medicine 08/15/15 documented as of this encounter
--- OUTSIDE RECORDS SUMMARY | 2024-11-24 17:29 | XMS_ITS | Clinical Summary ---
Author Organization [facility] ity Address [address] [place] [address] Care Team Providers Care Pillowcase Cutter Name Role Phone Unavailable Primary Care Provider [...]
--- OUTSIDE RECORDS SUMMARY | 2024-11-24 17:29 | XMS_ITS ---
Author Organization [facility] Address [address] [place] [address] Care Team Providers Care Rider Ticket Worker Name Role Phone Halina Jones MD, Lit Primary Care Provide r Unavailable Markel, Radha Unavailable [phone] Encounters Encounter Location Date Provider Diagnosis [facility] [address] [place] [address] 11/21/2023 Radha Jean Baptiste Plan Of Treatment No Information Progress Notes * Fadi PATTERSONDOB:1965 ( 59 yo M)Acc No.[id number]:11/21/2023 Progress Notes Patient:?Fadi PATTERSON Provider:?Radha Jean Baptiste DPM :1965???Age:58 Y???Sex:Male Jacob e:11/21/2023 Address:[address], [id number] Pcp:Lit Jones MD Subjective: * Chief Complaints: [...] Jean Baptiste DPM Date:?2023 Generated for Charlette pulliam/Alvin/Madysmitting on:?11/24/2024 05:28 PM EST
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
--- OUTSIDE RECORDS SUMMARY | 2024-11-24 17:29 | XMS_ITS ---
Author Organization [facility] Address [address] [place] [address] Care Team Providers Care Butter Maker Name Role Phone Halina Jones MD, Lit Primary Care Provide r Unavailable Black, Radha Unavailable [phone] REASON FOR VISIT EXECUTIVE PILOT Encounters Encounter Location Date Provider Diagnosis [facility] [address] [place] [address] 09/10/2023 Radha Jean Baptiste Plan Of Treatment No Information Progress Notes * LEONARDO FadiDOB:1965 ( 57 yo M)Acc No.[id number]:09/10/2023 Patient:?Fadi Patterson :1965???Age:57 Y???Sex:Male Address:[address], [place] [address] * true * Date:? Generated for Charlette pulliam/Alvin/eTransmitting on:?11/24/2024 05:28 PM EST
--- OUTSIDE RECORDS SUMMARY | 2024-11-24 17:29 | XMS_ITS | Encounter Summary ---
Author Organization [email or web address] Address [address] 7t [place] [address] Care Team Providers Care Pharmacy Services Director Name Role Phone Lit Khalil MD Primary Care Provide r Reason for Visit * Reason Comments Pre-visit Planning SDOH Screening posit christophe and Tobacco screening negative Encounter Details Date Type Department Care Team ([facility] st Contact Info) Description 11/09/2024 Patient Outreach [facility] [address] [place], [place] [phone] Lit Khalil MD [address] [place], [place] [phone] Pre-visit Planning (SDOH Screening positive and Tobacco [...] Description 12/10/2024 9:15 AM EST Office Visit [facility] [address] [place] [address] Lit Khalil MD [address] [place] [address] 12/10/2024 2:00 PM EST Medication Management [facility] [address] [facility] [place] [address] documented as of this encounter Visit Diagnoses Not on filedocumented in this encounter Additional Health Concerns Assessment Noted Time PHQ-9 Depression Total Score: 20 024 9:13 AM EDT documented as of this encounter Care Teams Pharmacy Services Director Relationship Specialty Start Date End Date Lit Khalil MD [address] [place] [address] PCP - General Internal Medicine 08/15/15 documented as of this encounter
--- OUTSIDE RECORDS SUMMARY | 2024-11-24 17:29 | XMS_ITS | Patient Health Record ---
Author Organization [facility] Address [address] [place] [address] Care Team Providers Care Electrician Machine Shop Name Role Phone Halina Jones MD, [facility] Primary Care Provide r Unavailable BlackRadha Unavailable [phone] Reason For Referral No Information Plan Of Treatment No Information Insurance Providers Payer Name Payer Address Payer Phone Subscriber Number Group Number Insured Name Patient Relationship to Insured Coverage Start Date Coverage End Date [facility] [employer] Claims [address] [place] [id number] Fadi Patterson Self - patient is the insured
--- OUTSIDE RECORDS SUMMARY | 2024-11-24 17:29 | XMS_ITS | Encounter Summary ---
Author Organization [employer] Address [address] 7t [place] [address] Care Team Providers Care Field Artillery Officer Name Role Phone Lit Khalil MD Primary Care Provide r Reason for Visit * Reason Comments Med Refill Encounter Details Date Type Department Care Team ([facility] st Contact Info) Description 08/09/2024 Refill [facility] [address] [place] [address] Lit Khalil MD [address] [place], [place] [phone] Type 2 diabetes mellitus with diabetic polyneuropathy, without long-term current use of insulin ([facility]) Social History Tobacco Use Types Packs/Day Years [...] the past 12 months, has t he [employer], gas, oil or water company threatened to [...] Description 12/10/2024 9:15 AM EST Office Visit [facility] [address] [place] [address] Lit Khalil MD [address] [place] [address] 12/10/2024 2:00 PM EST Medication Management [facility] [address] [place] [address] documented as of this encounter Visit Diagnoses Diagnosis Type 2 diabetes mellitus with diabetic polyneuropathy, without long-term current use of insulin ([facility]) documented in this encounter Additional Health Concerns Assessment Noted Time PHQ-9 Depression Total Score: 20 024 9:13 AM EDT documented as of this encounter Care Teams Field Artillery Officer Relationship Specialty Start Date End Date Lit Khalil MD [address] [place] [address] PCP - General Internal Medicine 08/15/15 documented as of this encounter
--- OUTSIDE RECORDS SUMMARY | 2024-11-24 17:29 | XMS_ITS | Encounter Summary ---
Author Organization [employer] Address [address] 7t [place] [address] Care Team Providers Care Oil Agent Name Role Phone Lit Khalil MD Primary Care Provide r Reason for Visit * Reason Onset Date Comments Chart Prep 11/12/2024 Encounter Details Date Type Department Care Team ([facility] st Contact Info) Description 11/12/2024 Telephone [facility] [address] [place], [place] [phone] Lit Khalil MD [address] [place], [place] [phone] Chart Prep Social History Tobacco Use Types [...] Description 12/10/2024 9:15 AM EST Office Visit [facility] [address] [place] [address] Lit Khalil MD [address] [place] [address] 12/10/2024 2:00 PM EST Medication Management [facility] [address] [place] [address] documented as of this encounter Visit Diagnoses Not on filedocumented in this encounter Additional Health Concerns Assessment Noted Time PHQ-9 Depression Total Score: 20 024 9:13 AM EDT documented as of this encounter Care Teams Oil Agent Relationship Specialty Start Date End Date Lit Khalil MD [address] [place] [address] PCP - General Internal Medicine 08/15/15 documented as of this encounter
--- OUTSIDE RECORDS SUMMARY | 2024-11-24 17:29 | XMS_ITS | Encounter Summary ---
Author Organization [employer] Address [address]t [place] [address] Care Team Providers Care Critical Care Unit Nurse Name Role Phone Lit Khalil MD Primary Care Provide r Reason for Visit * Reason Comments Diabetes Pt stated that he garcia s been experiencing a sharp pain on the left lower side of his stomach, has been going on or about 2 weeks but mentioned that its gotten worse Encounter Details Date Type Department Care Team (Latest Contact Info) Description 11/24/2024 10:15 AM EST Office Visit [facility] [address] [place] [address] Lit Khalil MD [address] [place], [place] [phone] Chronic tension-type headache, not intractable (Primary Dx); Diabetic polyneuropathy associated with type 2 diabetes mellitus (CMS/HCC); Essential hypertension; Thyroid nodule; Mixed hyperlipidemia; Pulmonary emphysema, unspecified emphysema type (CMS/HCC); Obstructive sleep apnea syndrome; Depression, recurrent (CMS/HCC); Left lower quadrant abdominal pain; Type 2 diabetes mellitus without complication, unspecified whether alf insulin use (CMS/HCC) Social History Tobacco Use Types Packs/Day Years [...] AM EDT documented as of this encounter Last Filed Vital Signs Vital Sign Reading [...] Mass Index 30.29 11/24/2024 9:57 AM EST documented in this encounter Progress Notes * Lit Jones MD - 11/24/2024 10:15 AM EST SUBJECTIVE Sacha Patterson is a 59 y.o. male who presents for Diabetes (Pt stated that he has been experiencing a sharp pain on the left lower side of his stomach, has been going on or about 2 weeks but mentioned that its gotten worse). Diabetes He presents for his follow-up diabetic visit. He has type 2 diabetes mellitus. Pertinent negatives for hypoglycemia include no headaches. Pertinent negatives for diabetes include no chest pain. Abdominal Pain This is a new problem. The current episode started in the past 7 days. The pain is located in the LLQ. The pain is at a severity of 8/10. The quality of the pain is sharp. The abdominal pain radiatesto the suprapubic region. Pertinent negatives include no fever or headaches. The pain is aggravatedby eating. He has tried nothing for the symptoms. Review of Systems Constitutional: Negative for fever. HENT: Negative for sore throat. Respiratory: Negative for cough and shortness of breath. Cardiovascular: Negative for chest pain. Gastrointestinal: Positive for abdominal pain. Neurological: Negative for headaches. Allergies Allergen Reactions Morphine Penicillamine Penicillins Other reaction(s): Anaphylaxis due to substance OBJECTIVE Vitals: 11/24/24 0957 11/24/24 1024 BP: (!) 154/87 (!) 140/80 BP Location: Left arm Left arm Patient Position: Sitting Sitting BP Cuff Size: Adult Pulse: 95 Resp: 20 Temp: 97.5 ??F (36.4 ??C) TempSrc: Temporal SpO2: 98% Weight: 193 lb 6.4 oz (87.7 kg) Height: 5' 7 (1.702 m) Physical Exam Vitals reviewed. Constitutional: Appearance: Normal appearance. HENT: Head: Normocephalic and atraumatic. Right Ear: External ear normal. Left Ear: External ear normal. Nose: Nose normal. Mouth/Throat: Mouth: Mucous membranes are moist. Eyes: Conjunctiva/sclera: Conjunctivae normal. Cardiovascular: Rate and Rhythm: Normal rate and regular rhythm. Pulmonary: Effort: Pulmonary effort is normal. Breath sounds: Normal breath sounds. Abdominal: General: Abdomen is flat. Bowel sounds are normal. Palpations: Abdomen is soft. Tenderness: There is abdominal tenderness in the left lower quadrant. Skin: General: Skin is warm. Neurological: Mental Status: He is alert. Mental status is at baseline. Assessment/Plan Problem List Items Addressed This Visit Diabetic polyneuropathy associated with type 2 diabetes mellitus (CMS/HCC) Here for a f/u DM controlled He is on a regimen of: Metformin 1000 po daily, Most recent Hgb A1c 11/24/2024 : 5.8 Plan: Lower dose of Metformin to 500 mg po daily Eye exam was done by (hotel server). none recently. Pt was referred to our eye care clinic Microalbumin checked on: 11/18/2024 was: 31 Pt IS on an LENCHO inhibitor ordered Foot check showed loss of sensation left side Pt advised to: adhere to diabetic diet Pt with c/o burning sensation on his feet, suggestive of neuropathy He is on Gabapentin 100 mg po TID Relevant Medications metFORMIN (Glucophage) 500 MG tablet Other Relevant Orders POCT Glucose (Completed) POCT HGB A1C (Completed) Chronic tension-type headache, not intractable - Primary Pt here for a follow up. He has a hx of chronic headaches. Has had an extensive evaluation by neurologist (Dr Gonzalez). MRI of the brain done on 02/02/2010 showed several small subcortical T2 bright lesions seen bilaterally, thought to be related to microvascular disease by radiologist. Pt no longer following with Dr gonzalez. He is now under the care of [facility] Neurology. They recommended start Cyclobenzaprine since they believe her headaches are associated with his chronic neck pain and he was to follow up with them in a few months. On 09/15/2024 He underwent an MRI/MRA ordered by [facility] Neurology that showed; IMPRESSION: 1. No [...] finding. Pt tells me he was referred toa specialist records requested Essential hypertension BP controlled He is on a regimen [...] 04/16/2024 were wnl. Plan: continue current regimen. Thyroid nodule Here for a f/u Pt with a [...] 0.5 cm RIGHT TR 1 thyroid nodule.. Hyperlipidemia Patient with elevated lipids. Most recent lipid [...] diet, counseled and educated about diet and exercise,Patient encouraged to come up with a personal goal for weight loss. Pulmonary emphysema (CMS/HCC) No recent exacerbations Under the care of Pulmonology Dr Mcnamara, last seen 10/13/2024 Currently on a regimen of: Symbivort and Pro-Air Per Mud Analysis Supervisor notes he did not tolerate any other maintenance inhalers due to c/o chest pain uses Albuterol Neubilizations PRN. Obstructive sleep apnea syndrome Pt is tolerating CPAP machine with good results feels refreshed Depression, recurrent (CMS/HCC) Pt with a long Hx of depression/mental illness/psychosis, under the care of Dr. Rowdy Ruggiero and psychiatrist Pt is on a regimen of Buproprion SR 150 mg 1 tab po BID and Trazodone and Lorazepam 0.5 mg one tab BID PRN Patient denies any suicidal ideation or thoughts, Patient has crisis numbers and knows to use them if needed Left lower quadrant abdominal pain Pt with c/o LLQ abdominal pain, intermittent, 8/10 no fever or any other associated symptoms Exam: tenderness to palpation LLQ Plan: Pt to be seen in the ER for a stat CT of abdomen rule out diverticulitis Follow up with me after seen in the ER Other Visit Diagnoses Type 2 diabetes mellitus without complication, unspecified whether alf insulin use (CMS/HCC) Relevant Medications metFORMIN (Glucophage) 500 MG tablet documented in this encounter Miscellaneous Notes * Assessment & Plan Note - Lit Jones MD - 11/24/2024 10:16 AM EST Associated Problem(s): Left lower quadrant abdominal pain Pt with c/o LLQ abdominal pain, intermittent, 05/16 no fever or any other associated symptoms Exam: tenderness to palpation LLQ Plan: Pt to be seen in the ER for a stat CT of abdomen rule out diverticulitis Follow up with me after seen in the ER * Assessment & Plan Note - Lit Jones MD - 11/24/2024 10:12 AM EST Associated Problem(s): Depression, recurrent (CMS/HCC) Pt with a long Hx of depression/mental illness/psychosis, under the care of Dr. Rowdy Ruggiero and psychiatrist Pt is on a regimen of Buproprion SR 150 mg 1 tab po BID and Trazodone and Lorazepam 0.5 mg one tab BID PRN Patient denies any suicidal ideation or thoughts, Patient has crisis numbers and knows to use them if needed * Assessment & Plan Note - Lit Jones MD - 11/24/2024 10:12 AM EST Associated Problem(s): Obstructive sleep apnea syndrome Pt is tolerating CPAP machine with good results feels refreshed * Assessment & Plan Note - Lit Jones MD - 11/24/2024 10:11 AM EST Associated Problem(s): Pulmonary emphysema (CMS/HCC) No recent exacerbations Under the care of Pulmonology Dr Mcnamara, last seen 10/13/2024 Currently on a regimen of: Symbivort and Pro-Air Per M[employer] Analysis Supervisor notes he did not tolerate any other maintenance inhalers due to c/o chest pain uses Albuterol Neubilizations PRN. * Assessment & Plan Note - Lit Jones MD - 11/24/2024 10:10 AM EST Associated Problem(s): Diabetic polyneuropathy associated with type 2 diabetes mellitus (CMS/HCC) Here for a f/u DM controlled He is on a regimen of: Metformin 1000 po daily, Most recent Hgb A1c 11/24/2024 : 5.8 Plan: Lower dose of Metformin to 500 mg po daily Eye exam was done by (hotel server). none recently. Pt was referred to our eye care clinic Microalbumin checked on: 11/18/2024 was: 31 Pt IS on an LENCHO inhibitor ordered Foot check showed loss of sensation left side Pt advised to: adhere to diabetic diet Pt with c/o burning sensation on his feet, suggestive of neuropathy He is on Gabapentin 100 mg po TID * Assessment & Plan Note - Lit Jones MD - 11/24/2024 10:09 AM EST Associated Problem(s): Hyperlipidemia Patient with elevated lipids. Most recent lipid [...] diet, counseled and educated about diet and exercise,Patient encouraged to come up with a personal goal for weight loss. * Assessment & Plan Note - Lit Jones MD - 11/24/2024 10:08 AM EST Associated Problem(s): Thyroid nodule Here for a f/u Pt with a [...] 0.5 cm RIGHT TR 1 thyroid nodule.. * Assessment & Plan Note - Lit Jones MD - 11/24/2024 10:07 AM EST Associated Problem(s): Essential hypertension BP controlled He is on a regimen [...] 04/16/2024 were wnl. Plan: continue current regimen. * Assessment & Plan Note - Lit Jones MD - 11/24/2024 10:04 AM EST Associated Problem(s): Chronic tension-type headache, not intractable Pt here for a follow up. He [...] 09/15/2024 He underwent an MRI/MRA ordered by [facility] Neurology that showed; IMPRESSION: 1. No [...] finding. Pt tells me he was referred toa specialist records requested documented in this encounter Plan of Treatment Upcoming Encounters Date Type Department Care Team (Late st Contact Info) Description 12/10/2024 9:15 AM EST Office Visit [facility] [address] [place] [address] Lit Khalil MD [address] [place] [address] 12/10/2024 2:00 PM EST Medication Management [address] [address] documented as of this encounter Procedures Procedure Name Priority Date/Time Associated Diagnosis Comments POCT GLYCATED HEMOGLOBIN, TOTAL Routine 11/24/2024 10:07 AM EST Diabetic polyneuropathy associated with type 2 diabetes mellitus ([facility]) POCT GLUCOSE Routine 11/24/2024 10:03 AM EST Diabetic polyneuropathy associated with type 2 diabetes mellitus ([facility]) documented in this encounter Results * POCT HGB A1C (11/24/2024 10:07 AM EST) Hemoglobin A1C 5.8 4.0 - 6.0 % QC Media Lot # [id number] Lot# Expiration Date Blood 11/24/2024 10:0 7 AM EST us Lit Jones MD POINT OF CARE TEST EN TER/EDIT ORDERABLES Final Result * POCT Glucose (11/24/2024 10:03 AM EST) Glucose Blood, POC 175 60 - 200 mg/dL QC Media Lot # [id number] Lot# Expiration Date ,160 Blood Capillary blood specimen / Unknown 11/24/2024 10:03 AM EST Lit Jones MD POINT OF CARE TEST EN TER/EDIT ORDERABLES Final Result documented in this encounter Visit Diagnoses Diagnosis Chronic tension-type headache, not intractable- Primary Chronic tension type headache Diabetic polyneuropathy associated with type 2 diabetes mellitus (CMS/HCC) Essential hypertension Unspecified essential hypertension Thyroid nodule Nontoxic uninodular goiter Mixed hyperlipidemia Pulmonary emphysema, unspecified emphysema type (CMS/HCC) Obstructive sleep apnea syndrome Obstructive sleep apnea (adult) (pediatric) Depression, recurrent (CMS/HCC) Major depressive disorder, recurrent episode, unspecified Left lower quadrant abdominal pain Type 2 diabetes mellitus without complication, unspecified whether long term acute care registered nurse insulin use (CMS/HCC) documented in this encounter Additional Health Concerns Assessment Noted Time PHQ-9 Depression Total Score: 20 024 9:13 AM EDT documented as of this encounter Care Teams Critical Care Unit Nurse Relationship Specialty Start Date End Date Lit Khalil MD [address] [place] [address] PCP - General Internal Medicine 08/15/15 documented as of this encounter
--- OUTSIDE RECORDS SUMMARY | 2024-11-24 17:29 | XMS_ITS | Encounter Summary ---
Author Organization [employer] Address [address] [facility] 7t [place] [address] Care Team Providers Care Environmental Compliance Manager Name Role Phone Lit Khalil MD Primary Care Provide r Encounter Details Date Type Department Care Team (Late st Contact Info) Description 02/14/2023 Abstract [facility] [address] [place] [phone] Lit Khalil MD [address] [place] [address] Social History Tobacco Use Types Packs/Day Years [...] Description 12/10/2024 9:15 AM EST Office Visit [facility] [address] [place] [address] [phone] Lit Khalil MD [address] [place] [address] [phone] 12/10/2024 2:00 PM EST Medication Management [address] [phone] documented as of this encounter Procedures Procedure Name Priority Date/Time Associated Diagnosis Comments COLONOSCOPY Routine 05/03/2020 documented in this encounter Results * Colonoscopy (05/03/2020) Colonoscopy Normal Normal 05/03/2020 Franchesca Quesada - 05/03/2020 9:13 AM EDT Recommended 5 year follow up Historical Provider [facility] MAINTENANCE Edited Result - Final documented in this encounter Visit Diagnoses Not on filedocumented in this encounter Care Teams Environmental Compliance Manager Relationship Specialty Start Date End Date Lit Khalil MD [address] [place] [address] PCP - General Internal Medicine 08/15/15 documented as of this encounter
--- OUTSIDE RECORDS SUMMARY | 2024-11-24 17:29 | XMS_ITS | Encounter Summary ---
Author Organization [employer] Address [address] [place] [address] Care Team Providers Care Rotary Engine Assembler Name Role Phone Lit Khalil MD Primary Care Provide r Reason for Visit * Reason Comments Med Refill Encounter Details Date Type Department Care Team ([facility] st Contact Info) Description 10/26/2024 Refill [facility] [address] [place], [place] [phone] Jacqueline Guerrero NP [address] [place], [place] [phone] Type 2 diabetes mellitus without complication, without long-term current use of insulin ([facility]) Social History Tobacco Use Types Packs/Day Years [...] Description 12/10/2024 9:15 AM EST Office Visit [facility] [address] [place] [phone] Lit Khalil MD [address] [place] [address] 12/10/2024 2:00 PM EST Medication Management [facility] [address] [place] [phone] documented as of this encounter Visit Diagnoses Diagnosis Type 2 diabetes mellitus without complication, without long-term current use of insulin ([facility]) documented in this encounter Additional Health Concerns Assessment Noted Time PHQ-9 Depression Total Score: 20 024 9:13 AM EDT documented as of this encounter Care Teams Rotary Engine Assembler Relationship Specialty Start Date End Date Lit Khalil MD [address] [place] [phone] PCP - General Internal Medicine 08/15/15 documented as of this encounter
--- OUTSIDE RECORDS SUMMARY | 2024-11-24 17:29 | XMS_ITS | Encounter Summary ---
Author Organization [employer] Address [address] [place] [address] Care Team Providers Care Sample Selector Name Role Phone Lit Khalil MD Primary Care Provide r Reason for Visit * Reason Comments Care Coordination CHW outreach for SDO H PT-1 and food needs-referral completed Encounter Details Date Type Department Care Team (Latest Contact Info) Description 11/09/2024 Patient Outreach [facility] [address], [place] [phone] Lit Khalil MD [address], [place] [phone] Care Coordination (CHW outreach for SDOH PT-1 [...] Wednesdays, and Walk-In Urgent Care Located in [facility]. Patient provided with after-hours line for [facility], , which offer night time triage service and option to transfer to concrete pump operator helper provider if needed. documented in this encounter Plan of Treatment Upcoming Encounters Date Type Department Care Team (Late st Contact Info) Description 12/10/2024 9:15 AM EST Office Visit [address] [address] Lit Khalil MD [address] [place] [phone] 12/10/2024 2:00 PM EST Medication Management [address] [phone] documented as of this encounter Visit Diagnoses Not on filedocumented in this encounter Additional Health Concerns Assessment Noted Time PHQ-9 Depression Total Score: 20 024 9:13 AM EDT documented as of this encounter Care Teams Sample Selector Relationship Specialty Start Date End Date Lit Khalil MD [address] [place] [phone] PCP - General Internal Medicine 08/15/15 documented as of this encounter
--- OUTSIDE RECORDS SUMMARY | 2024-11-24 17:29 | XMS_ITS | Encounter Summary ---
Author Organization [employer] Address [address] [place] [address] Care Team Providers Care Quill Collector Name Role Phone Lit Khalil MD Primary Care Provide r Encounter Details Date Type Department Care Team (Latest Contact Info) Description 11/24/2024 Travel Social History Tobacco Use Types Packs/Day Years [...] Description 12/10/2024 9:15 AM EST Office Visit [facility] [address] [place] [phone] Lit Khalil MD [address] [place] [phone] 12/10/2024 2:00 PM EST Medication Management [facility] [address] [place] [phone] documented as of this encounter Visit Diagnoses Not on filedocumented in this encounter Additional Health Concerns Assessment Noted Time PHQ-9 Depression Total Score: 20 024 9:13 AM EDT documented as of this encounter Care Teams Quill Collector Relationship Specialty Start Date End Date Lit Khalil MD [address] [place] [phone] PCP - General Internal Medicine 08/15/15 documented as of this encounter
== END 2024-11-24 17:31 | disposition left against medical advice (07) ==
PROVIDERS: Physician Assistant Medical; Emergency Provider Emergency Medicine Emergency Medical Services; PCP Internal Medicine
DX: R10.9 Unspecified abdominal pain (principal); E11.9 Type 2 diabetes mellitus without complications; I10 Essential (primary) hypertension; E78.5 Hyperlipidemia, unspecified; Z79.899 Other long term (current) drug therapy
CPT/HCPCS: 36415; 80048; 80076; 81003; 83690; 83735; 85025; 99282; 99283

== ENCOUNTER 2025-01-12 11:25 | Outpatient (AMB) | payer OTHER, SELFPAY ==
--- NOTE | 2025-01-12 11:26 | A.OFFVIS_ITS ---
Vital Signs 01/12/25 11:39 Height 5 ft 7 in Weight 190 lb 14.725 oz BMI 29.9 BP 146/77 H Blood Pressure Location Lt brachial Position Sitting Pulse 76 Intake Visit Reasons: 6 mnth F/U [facility], GERD Intake Note: Sacha returns to in office follow up of LLQ abdominal pain. CC: Patient c/o LLQ abdominal pain with radiation to his rectum, pain with BMs, and nausea. He states that he went to the ER on 11/24 with abdominal pain but had to leave because his felt at home. He also c/o poor appetite and urinating a lot. He reports concerns as a 3rd sister of stomach cancer 3 months ago. Registration Representative Required: Yes Accompanied by: Self / Same As Patient Allergies Penicillins [PENICILLINS] Allergy (Severe, Verified 01/12/25 11:48) HIVES HPI HPI 6 mnth F/U [facility]IC, GERD: Details: Assessment & Plan (1) Irritable bowel syndrome with both constipation and diarrhea: Comment: MORE CONSTIPATION DOMINANT BUT MIXED Code(s): K58.2 - Mixed irritable bowel syndrome Category: Medical (2) GERD (gastroesophageal reflux disease): Code(s): K21.9 - Gastro-esophageal reflux disease without esophagitis Category: Medical Plan Syriac #Tracy MARCUS Increasing the senna to 2 tabs qhs completely resolved his abd pain, bloating and nausea. He continues on his AcipHex bid. ROV 6 mos. Medications: Refilled sennosides (Senna Laxative) 34.4 mg (4 x 8.6 mg) PO BEDTIME 60 tabs 6RF K58.2 - Mixed irritable bowel syndrome simethicone (Gas Relief (simethicone)) 160 mg (2 x 80 mg) PO BEDTIME 60 tabs 3RF 30 days rabeprazole (AcipHex) PLEASE DISREGUARD RX FOR PANTOPRAZOLE 20 mg PO BID 60 tabs 6RF K21.9 - Gastro-esophageal reflux disease without esophagitis TODAY'S VISIT Syriac #Monique Marcus He is due for repeat colonoscopy screening this year He says he has been having left lower abd pain and cramping that radiates to his back and rectum. He says it is all day long and even wakes him up at night. The pain is variable and ranges from 4/10 - 9/10 worse in the early am and with eating. He has associated nausea and loss of appetite. This has been over the past 2 mos. His metformin was very recetnly (after dariela sx) decreased from 1000mg a day to 500mg a day. He has a CT coming up 02/05. No fevers, hematochezia, vomiting, wt loss but he has had room spinning dizziness for a couple he has also had associated of weeks. He has also had associated polyuria. Because of this I will get a hemoglobin A1c (he does not know what his has been), I will also change his CAT scan ordered by his primary care to with IV and p.o. contrast in order an ultrasound of the renal system to see if he has any nephrolithiasis. Because diverticulitis is in the differential diagnosis I will try treating him empirically with Levaquin and Flagyl, telling him to hold his trazodone while he takes a Levaquin to avoid QT prolongation and also waiting for the CAT scan results. He does not drink alcohol. To address his dizziness as a courtesy I will give him a trial of meclizine. He has asthma and LEVI are well controlled as far as cardiac problems. There are no prior problems with anesthesia or sedation. There are no infectious disease problems. He had a TA removed in 2019. Return office visit in 3 weeks [facility] Medical History LEVI (obstructive sleep apnea) Other and unspecified hyperlipidemia Essential hypertension Type 2 diabetes mellitus with unspecified complications Back pain LEVI on CPAP Asthma Surgical History History of cardiac cath History of esophagogastroduodenoscopy (EGD) Hx of colonoscopy History of back surgery (~10/2020) Family History Son No problems noted. Father Stomach cancer Mother Cancer Heart problem Brother Cancer Social History Household Members: Spouse Alcohol intake: never Patient Tobacco Use Status: Never used Tobacco Review of Systems Const Denies fatigue, Denies fever(s), Denies night sweats, Reports poor appetite and Denies weight loss ENT Reports Normal hearing present, Denies dental pain, Denies dysphagia, Reports dizziness, Denies hearing loss, Denies mouth pain, Denies odynophagia, Denies throat swelling, Denies tongue swelling and Reports other (Dentition adequate) Card Reports no additional complaints Resp Reports no additional complaints GI Details: Reports abdominal pain, Denies melena, Denies bloating, Denies hematochezia, Reports constipation, Denies GI cramping, Denies dysphagia, Denies excessive flatus, Denies early satiety, Reports heartburn, Denies diarrhea, Reports nausea, Denies odynophagia, Denies vomiting and Denies hematemesis Musc Reports back pain Skin/Breast Denies pruritus, Denies lesions, Denies rash and Denies jaundice Neuro Reports Normal hearing present, Denies Abnormal speech present and Reports dizziness Endo Denies fatigue Aller/Immun Denies throat swelling and Denies tongue swelling Physical Exam Vital Signs: Last Vital Signs Pulse 76 01/12/25 11:39 BP 146/77 H 01/12/25 11:39 BMI result Body Mass Index 29.9 Const General: cooperative, well developed, acute distress mild and well groomed Nutritional Appearance: well nourished and obese Orientation/consciousness: oriented to person, oriented to place and oriented to time Limitations: language barrier HEENT Head: Yes normocephalic and Yes atraumatic Eyes General: appearance normal, both eyes and all related structures Pupils: Equal, round and reactive pupils present Neck Neck: Yes normal visual inspection and Yes no lymphadenopathy Thyroid: Thyroid normal Resp Effort & Inspection: normal respiratory effort and able to speak in complete sentences Auscultation: clear to auscultation bilaterally Cardio Rate: regular rate Rhythm: regular rhythm Heart sounds: Normal, physiologic split S2 sound present Peripheral pulses: radial pulses present and posterior tibial pulses present GI Inspection: No distended, Yes Abdominal panniculus present and Yes obesity Palpation (GI): Soft to palpation, Tenderness to palpation present (GI) in the LLQ and periumbilically, Guarding due to palpation present (GI) (worst in LLQ but generalized), not rigid and No hepatosplenomegaly present Percussion: Yes normal to percussion Auscultation: normal bowel sounds Rectal Exam - Male: Yes deferred Skin General skin exam: no rashes or lesions noted, turgor normal, skin not dry, no jaundice, No spider nevi and no striae Rashes: no rashes Nails: normal Neuro General: oriented to person, oriented to place and oriented to time Cranial nerves: Yes Equal, round and reactive pupils present and Yes Normal hearing present Speech: No Abnormal speech present Extrem General: Yes normal to inspection, No clubbing, No cyanosis and No edema Psych Appearance: grossly normal and well kempt Mental Status: mental status grossly normal Speech and movement: Normal speech and movement present Affect: normal affect Attitude: cooperative Thought process: Normal thought process present and not confabulating Thought content: Normal thought content present Insight: Fair insight present (Psych) Judgement: Fair judgement present (Psych) Results Reviewed Results Reviewed: Laboratory Tests 11/24/24 11:41 WBC 6.8 Hgb 13.7 L Hct 39.7 L MCV 84.1 MCH 29.0 Plt Count 217 Estimated GFR > 60 Total Bilirubin 1.1 H Direct Bilirubin 0.2 AST 55 H ALT 38 Alkaline Phosphatase 42 Lipase 21 Assessment & Plan Assessment & Plan (1) Abdominal bloating: Code(s): R14.0 - Abdominal distension (gaseous) Category: Medical (2) GERD (gastroesophageal reflux disease): Code(s): K21.9 - Gastro-esophageal reflux disease without esophagitis Category: Medical (3) Irritable bowel syndrome with both constipation and diarrhea: Comment: MORE CONSTIPATION DOMINANT BUT MIXED Code(s): K58.2 - Mixed irritable bowel syndrome Category: Medical (4) Tubular adenoma of colon: Comment: 04/2020 SCOPE, REPEAT IN 5 YEARS Code(s): D12.6 - Benign neoplasm of colon, unspecified Category: Medical (5) LLQ abdominal pain: Code(s): R10.32 - Left lower quadrant pain Category: Medical (6) Abdominal pain: Code(s): R10.9 - Unspecified abdominal pain Category: Medical (7) LLQ abdominal pain: Code(s): R10.32 - Left lower quadrant pain Category: Medical (8) Vertigo: Code(s): R42 - Dizziness and giddiness Category: Medical Plan She is here today with a friend who helps contribute to the history. She has a new diagnosis of DVT of the lower extremity and started on Eliquis. She is avoiding a great deal of foods as she thinks these cause diarrhea, she is avoiding hamburger, pizza, veggies. However, she also was out of mesalamine for a time (about 2 weeks) r/t refill problems with the pharmacy. So we need to consider if this is IBD exacerbation. She continues on budesonide. Also, she was on magnesium and I ask them to stop this - it was for generalized muscle cramping. Also, Eliquis at times causes diarrhea. Will get CRP, stool calprotectin, magnesium level and start prednisone taper. Also, encouraged to get CT. She has lost about 10 lbs. ROV 2 weeks. Orders: Orders CT abdomen pelvis w IV con Today R10.32 - Left lower quadrant pain US renal BI Today R10.9 - Unspecified abdominal pain Hemoglobin A1c Today R10.32 - Left lower quadrant pain EGD/[place] Combo - GI Use Only Today R10.32 - Left lower quadrant pain Medications: New peg 3350-electrolytes 236-22.74-6.74 -5.86 gram (Golytely) until fecal effluent is clear; do not exceed a total volume of 2,000 mL 240 mL PO Q10M 1 day 4,000 mL 0RF Z12.11 - Encounter for screening for malignant neoplasm of colon bisacodyl (Dulcolax (bisacodyl)) 10 mg (2 x 5 mg) PO BEDTIME 2 days 4 tabs 0RF metronidazole 500 mg PO TID 10 days 30 tabs 0RF meclizine (Motion Sickness (meclizine)) 25 mg PO TID 90 tabs 0RF R42 - Dizziness and giddiness metronidazole 500 mg PO TID 30 tabs 0RF 10 days peg 3350-electrolytes 236-22.74-6.74 -5.86 gram (Golytely) until fecal effluent is clear; do not exceed a total volume of 2,000 mL 240 mL PO Q10M 4,000 mL 0RF 1 day Z12.11 - Encounter for screening for malignant neoplasm of colon levofloxacin 250 mg PO DAILY 10 tabs 0RF 10 days R10.32 - Left lower quadrant pain bisacodyl (Dulcolax (bisacodyl)) 10 mg (2 x 5 mg) PO BEDTIME 4 tabs 0RF 2 days Refilled rabeprazole (AcipHex) PLEASE DISREGUARD RX FOR PANTOPRAZOLE 20 mg PO BID 60 tabs 6RF K21.9 - Gastro-esophageal reflux disease without esophagitis sennosides (Senna Laxative) 34.4 mg (4 x 8.6 mg) PO BEDTIME 60 tabs 6RF K58.2 - Mixed irritable bowel syndrome rabeprazole (AcipHex) PLEASE DISREGUARD RX FOR PANTOPRAZOLE 20 mg PO BID 60 tabs 6RF K21.9 - Gastro-esophageal reflux disease without esophagitis simethicone (Gas Relief (simethicone)) 160 mg (2 x 80 mg) PO BEDTIME 30 days 60 tabs 3RF sennosides (Senna Laxative) 34.4 mg (4 x 8.6 mg) PO BEDTIME 60 tabs 6RF K58.2 - Mixed irritable bowel syndrome simethicone (Gas Relief (simethicone)) 160 mg (2 x 80 mg) PO BEDTIME 60 tabs 3RF 30 days Coding Level of Care Code Est Pt Level 4 (44671) Diagnoses Abdominal bloating R14.0 GERD (gastroesophageal reflux disease) K21.9 Irritable bowel syndrome with both constipation and diarrhea K58.2 Tubular adenoma of colon D12.6 LLQ abdominal pain R10.32 Abdominal pain R10.9 Vertigo R42
[2025-01-12 11:39] VITALS: BP 146/77; PULSE 76; BMI 29.9
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
--- OUTSIDE RECORDS SUMMARY | 2025-01-12 13:59 | XMS_ITS | Encounter Summary ---
Author Organization [employer] Address [address] [facility] [address] 7t [place] [address] Care Team Providers Care Equipment Operator Intermodal Yard Name Role Phone Lit Khalil MD Primary Care Provide r Reason for Visit * Reason Comments Med Refill Encounter Details Date Type Department Care Team ([facility] st Contact Info) Description 08/09/2024 Refill [facility] MED [facility] PEDS [address] [place] [id number] Lit Khalil MD [address] [place], [place] [phone] Type 2 diabetes mellitus with diabetic polyneuropathy, without long-term current use of insulin ([facility]) Social History Tobacco Use Types [...] as of this encounter Plan of Treatment Not on file documented as of this encounter Visit Diagnoses Diagnosis Type 2 diabetes mellitus with diabetic polyneuropathy, without long-term current use of insulin ([facility]) documented in this encounter Additional Health Concerns Assessment Noted Time PHQ-9 Depression Total Score: 20 024 9:13 AM EDT documented as of this encounter Care Teams Equipment Operator Intermodal Yard Relationship Specialty Start Date End Date Lit Khalil MD [address] [place] [id number] PCP - General Internal Medicine 08/15/15 documented as of this encounter
--- OUTSIDE RECORDS SUMMARY | 2025-01-12 13:59 | XMS_ITS | Encounter Summary ---
Author Organization [employer] Address [address] [facility] [address] [place] [address] Care Team Providers Care Public Affairs Officer Name Role Phone Lit Khalil MD Primary Care Provide r Encounter Details Date Type Department Care Team (Latest Contact Info) Description 04/24/2019 Abstract [facility] Dental, Provider, DDS Social History Tobacco [...] on filedocumented in this encounter Care Teams Public Affairs Officer Relationship Specialty Start Date End Date Lit Khalil MD [address] [place] [address] PCP - General Internal Medicine 08/15/15 documented as of this encounter
--- OUTSIDE RECORDS SUMMARY | 2025-01-12 13:59 | XMS_ITS ---
Author Organization [facility] Address [address] [place] [address] Care Team Providers Care Questioned Documents Examiner Name Role Phone Halina Jones MD, Lit Primary Care Provide r Unavailable Black, Radha Unavailable [phone] REASON FOR VISIT Cancel Encounters Encounter Location Date Provider Diagnosis [facility] [address] [place] [address] 09/10/2023 Radha Jean Baptiste Plan Of Treatment No Information Progress Notes * Fadi PATTERSONDOB:1965 ( 57 yo M)Acc No.[id number]:09/10/2023 Patient:?Fadi Patterson :1965???Age:57 Y???Sex:Male Address:[address], [place] [address] * true * Date:? Generated for Charlette pulliam/Alvin/eTransmitting on:?01/12/2025 01:59 PM EDT
--- OUTSIDE RECORDS SUMMARY | 2025-01-12 13:59 | XMS_ITS | Encounter Summary ---
Author Organization [employer] Address 75 [facility] 7t [place] [address] Care Team Providers Care Cargo Surveyor Name Role Phone Lit Khalil MD Primary Care Provide r Encounter Details Date Type Department Care Team ([facility] st Contact Info) Description 02/14/2023 Abstract [facility] MEDICINE [address] [place], [place] [phone] Lit Khalil MD [address] [place], [place] [phone] Social History Tobacco Use Types Packs/Day Years [...] on file documented as of this encounter Procedures Procedure Name Priority Date/Time Associated Diagnosis Comments COLONOSCOPY Routine 05/03/2020 documented in this encounter Results * Colonoscopy (05/03/2020) Colonoscopy Normal Normal 05/03/2020 Narrative Nelly, Franchesca - 05/03/2020 9:13 AM EDT Recommended 5 year follow up Historical Provider HEALTH MAINTENANCE Edited Result - Final documented in this encounter Visit Diagnoses Not on filedocumented in this encounter Care Teams Cargo Surveyor Relationship Specialty Start Date End Date Lit Khalil MD [address] [place] [address] PCP - General Internal Medicine 08/15/15 documented as of this encounter
--- OUTSIDE RECORDS SUMMARY | 2025-01-12 13:59 | XMS_ITS ---
Author Organization [facility] Address [address] [place] [address] Care Team Providers Care Tombstone Erector Helper Name Role Phone Halina Jones MD, Lit Primary Care Provide r Unavailable Black, Radha Unavailable [phone] REASON FOR VISIT TEMPLATE CHECKER Encounters Encounter Location Date Provider Diagnosis [facility] [address] [place] [address] 09/10/2023 Radha Jean Baptiste Plan Of Treatment No Information Progress Notes * LEONARDO FadiDOB:1965 ( 57 yo M)Acc No.[id number]:09/10/2023 Patient:?Fadi Patterson :1965???Age:57 Y???Sex:Male Address:[address], [place] [address] * true * Date:? Generated for Charlette pulliam/Alvin/eTransmitting on:?01/12/2025 01:59 PM EDT
--- OUTSIDE RECORDS SUMMARY | 2025-01-12 14:00 | XMS_ITS | Patient Health Record ---
Author Organization [facility] Address [address] [place] [address] Care Team Providers Care Coffee Grinder Name Role Phone Halina Jones MD, [facility] Primary Care Provide r Unavailable BlackRadha Unavailable [phone] Reason For Referral No Information Plan Of Treatment No Information Insurance Providers Payer Name Payer Address Payer Phone Subscriber Number Group Number Insured Name Patient Relationship to Insured Coverage Start Date Coverage End Date [facility] [employer] Claims [address] [place] [id number] Fadi Patterson Self - patient is the insured
--- OUTSIDE RECORDS SUMMARY | 2025-01-12 14:00 | XMS_ITS ---
Author Organization [facility] Address [address] [place] [address] Care Team Providers Care Announcer Name Role Phone Halina Jones MD, Lit Primary Care Provide r Unavailable Markel, Radha Unavailable [phone] Encounters Encounter Location Date Provider Diagnosis [facility] [address] [place] [address] 11/21/2023 Radha Jean Baptiste Plan Of Treatment No Information Progress Notes * Fadi PATTERSONDOB:1965 ( 59 yo M)Acc No.[id number]:11/21/2023 Progress Notes Patient:?Fadi PATTERSON Provider:?Radha Jean Baptiste DPM :1965???Age:58 Y???Sex:Male Jacob e:11/21/2023 Address:[address], [id number] Pcp:Lit Jones MD Subjective: * Chief Complaints: * ??? * Medical History:? Objective: * Vitals:? Assessment: Plan: * Treatment: * Images: * The named appointment provid er may or may not be the originator of this progress note, and it is not deemed complete until electronically signed by the appointment provider. Sign off status: Pending * Provider:?Radha Jean Baptiste DPM Date:?2023 Generated for Chralette pulliam/Alvin/eTransmitting on:?01/12/2025 01:59 PM EDT
--- OUTSIDE RECORDS SUMMARY | 2025-01-12 14:00 | XMS_ITS | Clinical Summary ---
Author Organization [facility] it[facility] Address [address] [place] [address] Care Team Providers Care Oilfield Plant And Field Operator Name Role Phone Unavailable Primary Care Provider [...] 2024 Influenza Vaccine (#1) 2024 RSV Immunization Adult Patie nts (1 - 1-dose 75+ series) 2040 HIB [...] age to complete this topic Meningococcal B Vaccine Aged Out No l onger eligible based on patient's age to complete [...]
== END 2025-01-12 14:33 | disposition home or self-care (01) ==
PROVIDERS: PCP Internal Medicine; Visit Provider Nurse Practitioner
DX: R14.0 Abdominal distension (gaseous) (principal); K21.9 Gastro-esophageal reflux disease without esophagitis; K58.2 Mixed irritable bowel syndrome; D12.6 Benign neoplasm of colon, unspecified; R10.32 Left lower quadrant pain; R10.9 Unspecified abdominal pain; R42 Dizziness and giddiness
CPT/HCPCS: 99214

== ENCOUNTER → 2025-01-12 11:25 | Outpatient (BNVA) | payer OTHER, SELFPAY | PROVIDERS: PCP Internal Medicine; Visit Provider Nurse Practitioner | DX: K21.9 Gastro-esophageal reflux disease without esophagitis (principal); K59.04 Chronic idiopathic constipation; K58.2 Mixed irritable bowel syndrome; R10.32 Left lower quadrant pain; R11.0 Nausea; R14.0 Abdominal distension (gaseous); D12.6 Benign neoplasm of colon, unspecified; R10.9 Unspecified abdominal pain; R42 Dizziness and giddiness | CPT/HCPCS: 99212 ==

== ENCOUNTER 2025-01-13 09:51 | Outpatient (REF) | payer OTHER, SELFPAY ==
[2025-01-13 10:49] LABS: Estimated Average Glucose 120 mg/dL; Hemoglobin A1C 139.2802 umol/L; Hemoglobin A1c % 5.8 % (<6.0); Total Hemoglobin (HGBA1C) 3539.7122 umol/L
--- OUTSIDE RECORDS SUMMARY | 2025-01-13 10:50 | XMS_ITS ---
Author Organization [facility] Address [address] [place] [address] Care Team Providers Care Textile Machinery Instructor Name Role Phone Halina Jones MD, Lit Primary Care Provide r Unavailable Black, Radha Unavailable [phone] REASON FOR VISIT Cancel Encounters Encounter Location Date Provider Diagnosis [facility] [address] [place] [address] 09/10/2023 Radha Jean Baptiste Plan Of Treatment No Information Progress Notes * Fadi PATTERSONDOB:1965 ( 57 yo M)Acc No.[id number]:09/10/2023 Patient:?Fadi Patterson :1965???Age:57 Y???Sex:Male Address:[address], [place] [address] * true * Date:? Generated for Charlette pulliam/Alvin/eTransmitting on:?01/13/2025 10:50 AM EDT
--- OUTSIDE RECORDS SUMMARY | 2025-01-13 10:50 | XMS_ITS | Encounter Summary ---
Author Organization [employer] Address [address] [facility] [address] [place] [address] Care Team Providers Care Cashier Office Name Role Phone Lit Khalil MD Primary [...] on filedocumented in this encounter Care Teams Cashier Office Relationship Specialty Start Date End Date Lit Khalil MD [address] [place] [address] PCP - General Internal Medicine 08/15/15 documented as of this encounter
--- OUTSIDE RECORDS SUMMARY | 2025-01-13 10:50 | XMS_ITS | Encounter Summary ---
Author Organization [employer] Address [address] [facility] 7t [place] [address] Care Team Providers Care Etl Tester Name Role Phone Lit Khalil MD Primary Care Provide r Encounter Details Date Type Department Care Team ([facility] st Contact Info) Description 02/14/2023 Abstract [facility] MEDICINE [address] [place], [place] [phone] Lit Khalil MD [address] [place], [place] [phone] Social History Tobacco Use Types Packs/Day Years [...] on filedocumented in this encounter Care Teams Etl Tester Relationship Specialty Start Date End Date Lit Khalil MD [address] [place] [address] PCP - General Internal Medicine 08/15/15 documented as of this encounter
--- OUTSIDE RECORDS SUMMARY | 2025-01-13 10:50 | XMS_ITS | Encounter Summary ---
Author Organization [employer] Address [address] [facility] [address] [place] [address] Care Team Providers Care Secret Service Agent Name Role Phone Lit Khalil MD Primary Care Provide r Reason for Visit * Reason Comments Med Refill Encounter Details Date Type Department Care Team ([facility] st Contact Info) Description 08/09/2024 Refill [facility] MED & PEDS [address] [place] [address] Lit Khalil MD [address] [place], [place] [phone] Type 2 diabetes mellitus with diabetic polyneuropathy, without long-term current use of insulin ([facility]) Social History Tobacco Use Types Packs/Day Years [...] polyneuropathy, without long-term current use of insulin ([facility]) documented in this encounter Additional Health Concerns Assessment Noted Time PHQ-9 Depression Total Score: 20 024 9:13 AM EDT documented as of this encounter Care Teams Secret Service Agent Relationship Specialty Start Date End Date Lit Khalil MD [address] [place] [address] PCP - General Internal Medicine 08/15/15 documented as of this encounter
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
--- OUTSIDE RECORDS SUMMARY | 2025-01-13 10:51 | XMS_ITS | Patient Health Record ---
Author Organization [facility] Address [address] [place] [address] Care Team Providers Care Corporate Legal Intern Name Role Phone Halina Jones MD, [facility] Primary Care Provide r Unavailable BlackRadha Unavailable [phone] Reason For Referral No Information Plan Of Treatment No Information Insurance Providers Payer Name Payer Address Payer Phone Subscriber Number Group Number Insured Name Patient Relationship to Insured Coverage Start Date Coverage End Date [facility] [employer] Claims [address] [place] [address] [id number] Fadi Patterson Self - patient is the insured
--- OUTSIDE RECORDS SUMMARY | 2025-01-13 10:51 | XMS_ITS ---
Author Organization [facility] Address [address] [place] [address] Care Team Providers Care Dairy Inspector Name Role Phone Halina Jones MD, Lit Primary Care Provide r Unavailable Black, Radha Unavailable [phone] Encounters Encounter Location Date Provider Diagnosis [facility] [address] [place] [address] 11/21/2023 Radha Jean Baptiste Plan Of Treatment No Information Progress Notes * Fadi PATTERSONDOB:1965 ( 59 yo M)Acc No.[id number]:11/21/2023 Progress Notes Patient:?Fadi PATTERSON Provider:?Radha Jean Baptiste DPM :1965???Age:58 Y???Sex:Male Jacob e:11/21/2023 Address:[address], [phone] Pcp:Lit Jones MD Subjective: * Chief Complaints: [...] Baptiste DPM Date:?2023 Generated for Charlette pulliam/Alvin/Madysmitting on:?01/13/2025 10:50 AM EDT
--- OUTSIDE RECORDS SUMMARY | 2025-01-13 10:51 | XMS_ITS ---
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 Generated for Charlette pulliam/Alvin/eTransmitting on:?01/13/2025 10:50 AM EDT
--- OUTSIDE RECORDS SUMMARY | 2025-01-13 10:51 | XMS_ITS | Clinical Summary ---
Author Organization [facility] ity Address [address] [place] [address] Care Team Providers Care Senior Climate Advisor Name Role Phone Unavailable Primary Care Provider [...] - 2023-2 5 season) 2024 Influenza Vaccine (Season Ended) 2025 RSV Immunization Adult Patie nts (1 - [...]
== END 2025-01-13 09:52 | disposition home or self-care (01) ==
LOC: HO.LAB 09:51
PROVIDERS: PCP Internal Medicine; Visit Provider Nurse Practitioner
DX: R10.32 Left lower quadrant pain (principal); Z13.1 Encounter for screening for diabetes mellitus
CPT/HCPCS: 36415; 83036

== ENCOUNTER 2025-02-05 11:37 | Outpatient (REF) | payer OTHER, SELFPAY ==
--- NOTE | ~2025-02-05 | US_ITS ---
EXAMINATION: US KIDNEY BILATERAL HISTORY: R10.9 - Unspecified abdominal pain TECHNIQUE: Real-time grayscale ultrasound imaging of the kidneys was performed and images were reviewed. COMPARISON: Correlation is made with a CT of the abdomen with contrast dated 09/08/2020. FINDINGS: Right kidney: The right kidney measures 11.4 x 5.0 x 4.4 cm. Renal parenchymal echotexture and thickness are normal. There is a 1.7 x 1.3 x 1.0 cm cyst in the interpolar region. A tiny echogenic focus in the interpolar region could represent a nonobstructing calculus. There is no hydronephrosis. Left Kidney: The left kidney measures 4.7 x 4.4 x 3.6 cm. Renal parenchymal echotexture and thickness are normal. There are no masses. There is no hydronephrosis or renal calculi. US/US renal BI IMPRESSION: 1.7 cm right renal cyst. Possible tiny nonobstructing right renal calculus. Electronically signed by: Sudheer Jackson MD 02/05/2025 01:05 PM EDT
--- OUTSIDE RECORDS SUMMARY | 2025-02-05 12:33 | XMS_ITS | Encounter Summary ---
Author Organization [employer] Address [address] [place] [address] Care Team Providers Care Supervisor Mails Name Role Phone Lit Khalil MD Primary Care Provide r Reason for Visit * Reason Comments Med Refill Encounter Details Date Type Department Care Team ([facility] st Contact Info) Description 08/09/2024 Refill [facility] [address] [place] [address] Lit Khalil MD [address] [place], [place] [phone] Type 2 diabetes mellitus with diabetic polyneuropathy, without long-term current use of insulin ([facility]) Social History Tobacco Use Types Packs/Day [...] Care Team (Late st Contact Info) Description 04/13/2025 11:15 AM EDT Office Visit [facility] [address] [place] [address] Lit Khalil MD [address] [place] [address] documented as of this encounter Visit Diagnoses Diagnosis Type 2 diabetes mellitus with diabetic polyneuropathy, without long-term current use of insulin ([facility]) documented in this encounter Additional Health Concerns Assessment Noted Time PHQ-9 Depression Total Score: 20 024 9:13 AM EDT documented as of this encounter Care Teams Supervisor Mails Relationship Specialty Start Date End Date Lit Khalil MD [address] [place] [phone] PCP - General Internal Medicine 08/15/15 documented as of this encounter
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
--- OUTSIDE RECORDS SUMMARY | 2025-02-05 12:33 | XMS_ITS ---
Author Organization [facility] Address [address] [place] [address] Care Team Providers Care Architectural Design Professor Name Role Phone Halina Jones MD, Lit Primary Care Provide r Unavailable Black, Radha Unavailable [phone] REASON FOR VISIT Cancel Encounters Encounter Location Date Provider Diagnosis [facility] [address] [place] [address] 09/10/2023 Radha Jean Baptiste Plan Of Treatment No Information Progress Notes * Fadi PATTERSONDOB:1965 ( 57 yo M)Acc No.[id number]:09/10/2023 Patient:?Fadi Patterson :1965???Age:57 Y???Sex:Male Address:[address], [place] [address] * true * Date:? Generated for Charlette pulliam/Alvin/eTransmitting on:?02/05/2025 12:33 PM EDT
--- OUTSIDE RECORDS SUMMARY | 2025-02-05 12:33 | XMS_ITS ---
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 Generated for Charlette pulliam/Alvin/eTransmitting on:?02/05/2025 12:33 PM EDT
--- OUTSIDE RECORDS SUMMARY | 2025-02-05 12:33 | XMS_ITS | Encounter Summary ---
Author Organization [facility] Address [address] [facility] [address] [place] [address] Care Team Providers Care Rope Making Machine Operator Name Role Phone Lit Khalil MD Primary Care Provide r Encounter Details Date Type Department Care Team (Late st Contact Info) Description 02/14/2023 Abstract [facility] MEDICINE [address] [place] [address] [phone] Lit Khalil MD [address] [place] [address] [phone] Social History Tobacco Use Types Packs/Day Years [...] Description 04/13/2025 11:15 AM EDT Office Visit [facility] MEDICINE [address] [place] [address] [phone] Lit Khalil MD [address] [place], [place] [phone] documented as of this encounter Procedures Procedure Name Priority Date/Time Associated Diagnosis Comments COLONOSCOPY Routine 05/03/2020 documented in this encounter Results * Colonoscopy (05/03/2020) Colonoscopy Normal Normal 05/03/2020 Narrative Franchesca Villegas - 05/03/2020 9:13 AM EDT Recommended 5 year follow up us Historical Provider [facility] Edited Result - Final documented in this encounter Visit Diagnoses Not on filedocumented in this encounter Care Teams Rope Making Machine Operator Relationship Specialty Start Date End Date Lit Khalil MD [address] [place] [address] PCP - General Internal Medicine 08/15/15 documented as of this encounter
--- OUTSIDE RECORDS SUMMARY | 2025-02-05 12:33 | XMS_ITS | Encounter Summary ---
Author Organization [facility] Address [address] [facility] 7[address] [place] [address] Care Team Providers Care Rose Grower Name Role Phone Lit Khalil MD Primary Care Provide r Encounter Details Date Type Department Care Team (Latest Contact Info) Description 04/24/2019 Abstract [facility] CONVERSIONS Dental, Provider, DDS Social History Tobacco [...] Description 04/13/2025 11:15 AM EDT Office Visit [facility] MEDICINE [address] [place] [address] Lit Khalil MD [address] [place] [address] documented as of this encounter Visit Diagnoses Not on filedocumented in this encounter Care Teams Rose Grower Relationship Specialty Start Date End Date Lit Khalil MD [address] [place] [address] PCP - General Internal Medicine 08/15/15 documented as of this encounter
--- OUTSIDE RECORDS SUMMARY | 2025-02-05 12:34 | XMS_ITS ---
Author Organization [facility] Address [address] [place] [address] Care Team Providers Care Strawberry Grower Name Role Phone Halina Jones MD, Lit Primary Care Provide r Unavailable Markel, Radha Unavailable [phone] Encounters Encounter Location Date Provider Diagnosis [facility] [address] [place] [address] 11/21/2023 Radha Jean Baptiste Plan Of Treatment No Information Progress Notes * Fadi PATTERSONDOB:1965 ( 59 yo M)Acc No.[id number]:11/21/2023 Progress Notes Patient:?Fadi PATTERSON Provider:?Radha Jean Baptiste DPM :1965???Age:58 Y???Sex:Male Jacob e:11/21/2023 Address:[address], [id number] Pcp:Lit Jones MD Subjective: * Chief Complaints: [...] Jean Baptiste DPM Date:?2023 Generated for Charlette pulliam/Alvin/eTvicksmitting on:?02/05/2025 12:33 PM EDT
--- OUTSIDE RECORDS SUMMARY | 2025-02-05 12:34 | XMS_ITS | Clinical Summary ---
Author Organization [facility] Address [address] [place] [address] Care Team Providers Care Spiritual Counselor Name Role Phone Unavailable Primary Care Provider [...]
--- OUTSIDE RECORDS SUMMARY | 2025-02-05 12:34 | XMS_ITS | Patient Health Record ---
Author Organization [facility] Address [address] [place] [address] Care Team Providers Care Family Manager Name Role Phone Halina Jones MD, [facility] Primary Care Provide r Unavailable Radha Jean Baptiste Unavailable [phone] Reason For Referral No Information Plan Of Treatment No Information Insurance Providers Payer Name Payer Address Payer Phone Subscriber Number Group Number Insured Name Patient Relationship to Insured Coverage Start Date Coverage End Date [facility] [employer] Claims [address] [place] [id number] Fadi Patterson Self - patient is the insured
== END 2025-02-05 11:38 | disposition home or self-care (01) ==
LOC: HO.CT 11:37
PROVIDERS: PCP Internal Medicine; Visit Provider Internal Medicine
DX: R10.32 Left lower quadrant pain (principal)
CPT/HCPCS: 76775

== ENCOUNTER → 2025-02-05 11:40 | Outpatient (BNV) | payer OTHER, SELFPAY | PROVIDERS: PCP Internal Medicine; Visit Provider Radiology Diagnostic Radiology | DX: N28.1 Cyst of kidney, acquired (principal) | CPT/HCPCS: 76775 ==

== ENCOUNTER 2025-02-08 09:33 | Outpatient (REF) | payer OTHER, SELFPAY ==
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
--- OUTSIDE RECORDS SUMMARY | 2025-02-08 10:23 | XMS_ITS | Encounter Summary ---
Author Organization [employer] Address [address] [place] [address] Care Team Providers Care Restorer [employer] And Prints Name Role Phone Lit Khalil MD Primary Care Provide r Encounter Details Date Type Department Care Team (Latest Contact Info) Description 04/24/2019 Abstract [facility] CONVERSIONS Dental, Provider, DDS Social [...] Description 04/13/2025 11:15 AM EDT Office Visit [facility] [address] [place] [address] Lit Khalil MD [address] [place] [address] documented as of this encounter Visit Diagnoses Not on filedocumented in this encounter Care Teams Restorer [employer]s Relationship Specialty Start Date End Date Lit Khalil MD [address] [place] [address] PCP - General Internal Medicine 08/15/15 documented as of this encounter
--- OUTSIDE RECORDS SUMMARY | 2025-02-08 10:23 | XMS_ITS ---
Author Organization [facility] Address [address] [place] [address] Care Team Providers Care Clasp Machine Operator Name Role Phone Halina Jones MD, Lit Primary Care Provide r Unavailable Markel, Radha Unavailable [phone] Encounters Encounter Location Date Provider Diagnosis [facility] [address] [place] [address] 11/21/2023 Radha Jean Baptiste Plan Of Treatment No Information Progress Notes * Fadi PATTERSONDOB:1965 ( 59 yo M)Acc No.[id number]:11/21/2023 Progress Notes Patient:?Fadi PATTERSON Provider:?Radha Jean Baptiste DPM :1965???Age:58 Y???Sex:Male Jacob e:11/21/2023 Address:[address], [address], [id number] Pcp:Lit Jones MD Subjective: * Chief Complaints: [...] Baptiste DPM Date:?2023 Generated for Charlette pulliam/Alvin/Madysmitting on:?02/08/2025 10:23 AM EDT
--- OUTSIDE RECORDS SUMMARY | 2025-02-08 10:23 | XMS_ITS | Encounter Summary ---
Author Organization [employer] Address [address] [facility] [place] [address] Care Team Providers Care Placement Director Name Role Phone Lit Khalil MD Primary Care Provide r Encounter Details Date Type Department Care Team (Late st Contact Info) Description 02/05/2025 Orders Only [facility] External Provider, [facility] Social History Tobacco Use Types Packs/Day Years [...] Description 04/13/2025 11:15 AM EDT Office Visit [facility] [address] [place] [address] Lit Khalil MD [address] [place] [address] documented as of this encounter Procedures Procedure Name Priority Date/Time Associated Diagnosis Comments US RENAL BI Routine 02/05/2025 11:58 AM EDT documented in this encounter Results * US RENAL BI (02/05/2025 11:58 AM EDT) Anatomical Region Laterality Modality Abdomen Ultrasound 02/05/2025 11:5 8 AM EDT Narrative 02/05/2025 1:08 PM EDT ? [facility] ?[address] ?[place] [address] ? Ultrasound Report ? Signed ? Patient: Colon Leonardo,Sacha ?MR#: [id number] ? : 1965 ?Acct:[id number] ? Age/Sex: 59 / M ?ADM Date: 05/02/25 ? Loc: HO.CT ? Attending Dr: Lit Salinas MD ? Ordering Physician: Vero Li ?? Date of Service: 02/05/25 ?? Procedure(s): US renal BI ?? Accession Number(s): [id number] ? cc: Vero Li; Lit Salinas MD ? EXAMINATION: ??US [...] DD/ 1158 ? TD/TT: 02/05/25 1211 ? Risk Control Field Representative: ? Procedure Note Felipe Griffin - 02/05/[address] [address] Ultrasound Report Signed Patient: Amarilis Soria#: [id number] : 1965Acct:[id number] Age/Sex: 59 / MADM Date: 02/05/25 Loc: HO.CT Attending Dr: Lit Salinas MD Ordering Physician: JenJanuary ANP-C Date of Service: 02/05/25 Procedure(s): US renal BI Accession Number(s): [id number] cc: JenJanuary ANP-C; Lit Salinas MD EXAMINATION: US KIDNEY BILATERAL [...] Sudheer Jackson MD 02/05/2025 01:05 PM EDT Dictated By: Sudheer Jackson MD Signed By: <Electronically signed by Sudheer Jackson MD in OV> 02/05/25 1305 DD/ 1158 TD/TT: 02/05/25 1211 Risk Control Field Representative: [facility] External Provider IMG US PROCEDURES Final Result documented in this encounter Visit Diagnoses Not on filedocumented in this encounter Additional Health Concerns Assessment Noted Time PHQ-9 Depression Total Score: 7 12/11/19 25 9:03 AM EST documented as of this encounter Care Teams Placement Director Relationship Specialty Start Date End Date Lit Khalil MD [address] [place] [id number] PCP - General Internal Medicine 08/15/15 documented as of this encounter
--- OUTSIDE RECORDS SUMMARY | 2025-02-08 10:23 | XMS_ITS | Encounter Summary ---
Author Organization [employer] Address [address] [facility] 7t [place] [address] Care Team Providers Care Overhead Foreman Name Role Phone Lit Khalil MD Primary Care Provide r Encounter Details Date Type Department Care Team (Late st Contact Info) Description 02/14/2023 Abstract [facility] [address] [place] [address] [phone] Lit Khalil MD [address] [place] [address] [phone] Social History Tobacco Use Types Packs/Day Years [...] 11:15 AM EDT Office Visit [facility] [address] [place] [address] [phone] Lit Khalil MD [address] [place], [place] [phone] documented as of this encounter Procedures Procedure Name Priority Date/Time Associated Diagnosis Comments COLONOSCOPY Routine 05/03/2020 documented in this encounter Results * Colonoscopy (05/03/2020) Colonoscopy Normal Normal 05/03/2020 Narrative Franchesca Villegas - 05/03/2020 9:13 AM EDT Recommended 5 year follow up us Historical Provider [facility] Edited Result - Final documented in this encounter Visit Diagnoses Not on filedocumented in this encounter Care Teams Overhead Foreman Relationship Specialty Start Date End Date Lit Khalil MD [address] [place] [address] PCP - General Internal Medicine 08/15/15 documented as of this encounter
--- OUTSIDE RECORDS SUMMARY | 2025-02-08 10:23 | XMS_ITS | Encounter Summary ---
Author Organization [employer] Address [address] [place] [address] Care Team Providers Care Information Systems Auditor Name Role Phone Lit Khalil MD Primary Care Provide r Reason for Visit * Reason Comments Med Refill Encounter Details Date Type Department Care Team ([facility] st Contact Info) Description 08/09/2024 Refill [facility] [address] [place] [address] Lit Khalil MD [address] [place], [place] [phone] Type 2 diabetes mellitus with diabetic polyneuropathy, without long-term current use of insulin ([facility]) Social History Tobacco Use Types Packs/Day Years [...] Description 04/13/2025 11:15 AM EDT Office Visit [facility] [address] [place] [address] Lit Khalil MD [address] [place] [address] documented as of this encounter Visit Diagnoses Diagnosis Type 2 diabetes mellitus with diabetic polyneuropathy, without long-term current use of insulin ([facility]) documented in this encounter Additional Health Concerns Assessment Noted Time PHQ-9 Depression Total Score: 20 024 9:13 AM EDT documented as of this encounter Care Teams Information Systems Auditor Relationship Specialty Start Date End Date Lit Khalil MD [address] [place] [phone] PCP - General Internal Medicine 08/15/15 documented as of this encounter
--- OUTSIDE RECORDS SUMMARY | 2025-02-08 10:23 | XMS_ITS | Clinical Summary ---
Author Organization [facility] Address [address] [place] [address] Care Team Providers Care Stonemason Supervisor Name Role Phone Unavailable Primary Care Provider [...]
== END 2025-02-08 09:34 | disposition home or self-care (01) ==
LOC: HO.US 09:33
PROVIDERS: PCP Internal Medicine; Visit Provider Nurse Practitioner
DX: Z13.89 Encounter for screening for other disorder (principal)

== ENCOUNTER 2025-02-08 09:42 | Outpatient (REF) | payer OTHER, SELFPAY ==
--- NOTE | ~2025-02-08 | CT_ITS ---
CLINICAL HISTORY: LLQ abdominal pain, rule out diverticulitis CT abdomen and pelvis with contrast Comparison: None Findings: No consolidation or effusion. Numerous layering small stones or sludge within the gallbladder. No pericholecystic fluid or gallbladder wall thickening. A 1.4 cm right kidney midpole cysts. Mild nonspecific perinephric stranding. No hydronephrosis or nephrolithiasis. Remainder of the solid organs within normal limits. No bowel obstruction, pneumoperitoneum, or pneumatosis. Moderate colonic stool burden. No evidence of colonic diverticulosis or diverticulitis. Pelvic contents unremarkable. Normal appendix. The bones are intact. IMPRESSION: No acute findings. No evidence of significant diverticulosis or diverticulitis. Cholelithiasis. A 1.4 cm right kidney midpole cyst. No further follow-up is required of the cyst. This document has been electronically signed by: Arleen Reddy MD on 02/08/2025 21:19:08
[2025-02-08] MEDS: iohexoL 350 MG/ML 100 ML INFUS..BTL IV (12:11)
[2025-02-08] MEDS: Barium Sulfate Oral (Mocha) 450 ML ORAL.SUSP 900 ML PO (12:12)
[2025-02-08 14:50] LABS: Creatinine POC 0.6 mg/dL (0.5-1.4); GFR POC > 60
== END 2025-02-08 09:43 | disposition home or self-care (01) ==
LOC: HO.CT 09:42
PROVIDERS: PCP Internal Medicine; Visit Provider Nurse Practitioner
DX: R10.32 Left lower quadrant pain (principal)
CPT/HCPCS: 74177; 82565; Q9967

== ENCOUNTER → 2025-02-08 09:44 | Outpatient (BNV) | payer OTHER, SELFPAY | PROVIDERS: PCP Internal Medicine; Visit Provider Student in an Organized Health Care Education/Training Program | DX: K80.20 Calculus of gallbladder without cholecystitis without obstruction (principal); N28.1 Cyst of kidney, acquired | CPT/HCPCS: 74177 ==

== ENCOUNTER → 2025-02-12 10:28 | Outpatient (BNVA) | payer OTHER, SELFPAY | PROVIDERS: PCP Internal Medicine; Visit Provider Nurse Practitioner ==

== ENCOUNTER 2025-04-01 12:07 | Outpatient (AMB) | payer OTHER, SELFPAY ==
--- NOTE | 2025-04-01 12:20 | A.OFFVIS_ITS ---
Vital Signs 04/01/25 12:30 Height 5 ft 7 in Weight 190 lb BMI 29.8 BP 133/75 Blood Pressure Location Lt brachial Position Sitting Pulse 79 Pulse Oximetry (%) 98 Oxygen Delivery Method Room Air Intake Visit Reasons: CT and US result/ abdominal pain Intake Note: Patient follow up for abdominal pain, CT scan and US results Patient cc: painful BM, denies any other GI issues. Materials And Corrosion Engineer Required: Yes Materials And Corrosion Engineer Name: [facility] Interpeter Accompanied by: Self / Same As Patient Allergies Penicillins (PENICILLINS) Allergy (Severe, Verified 04/01/25 12:27) HIVES HPI HPI CT and US result/ abdominal pain: Details: Assessment & Plan (1) Abdominal bloating: Code(s): R14.0 - Abdominal distension (gaseous) Category: Medical (2) GERD (gastroesophageal reflux disease): Code(s): K21.9 - Gastro-esophageal reflux disease without esophagitis Category: Medical (3) Irritable bowel syndrome with both constipation and diarrhea: Comment: MORE CONSTIPATION DOMINANT BUT MIXED Code(s): K58.2 - Mixed irritable bowel syndrome Category: Medical (4) Tubular adenoma of colon: Comment: 04/2020 SCOPE, REPEAT IN 5 YEARS Code(s): D12.6 - Benign neoplasm of colon, unspecified Category: Medical (5) LLQ abdominal pain: Code(s): R10.32 - Left lower quadrant pain Category: Medical (6) Abdominal pain: Code(s): R10.9 - Unspecified abdominal pain Category: Medical (7) LLQ abdominal pain: Code(s): R10.32 - Left lower quadrant pain Category: Medical (8) Vertigo: Code(s): R42 - Dizziness and giddiness Category: Medical Plan He is here today with a friend who helps contribute to the history. He has a new diagnosis of DVT of the lower extremity and started on Eliquis. He is avoiding a great deal of foods as she thinks these cause diarrhea, she is avoiding hamburger, pizza, veggies. However, she also was out of mesalamine for a time (about 2 weeks) r/t refill problems with the pharmacy. So we need to consider if this is IBD exacerbation. She continues on budesonide. Also, he was on magnesium and I ask them to stop this - it was for generalized muscle cramping. Also, Eliquis at times causes diarrhea. Will get CRP, stool calprotectin, magnesium level and start prednisone taper. Also, encouraged to get CT. She has lost about 10 lbs. ROV 2 weeks. Orders: Orders CT abdomen pelvis w IV con Today R10.32 - Left lower quadrant pain US renal BI Today R10.9 - Unspecified abdominal pain Hemoglobin A1c Today R10.32 - Left lower quadrant pain EGD/Laurens Combo - GI Use Only Today R10.32 - Left lower quadrant pain Medications: New peg 3350-electrolytes 236-22.74-6.74 -5.86 gram (Golytely) until fecal effluent is clear; do not exceed a total volume of 2,000 mL 240 mL PO Q10M 1 day 4,000 mL 0RF Z12.11 - Encounter for screening for malignant neoplasm of colon bisacodyl (Dulcolax (bisacodyl)) 10 mg (2 x 5 mg) PO BEDTIME 2 days 4 tabs 0RF metronidazole 500 mg PO TID 10 days 30 tabs 0RF meclizine (Motion Sickness (meclizine)) 25 mg PO TID 90 tabs 0RF R42 - Dizziness and giddiness metronidazole 500 mg PO TID 30 tabs 0RF 10 days peg 3350-electrolytes 236-22.74-6.74 -5.86 gram (Golytely) until fecal effluent is clear; do not exceed a total volume of 2,000 mL 240 mL PO Q10M 4,000 mL 0RF 1 day Z12.11 - Encounter for screening for malignant neoplasm of colon levofloxacin 250 mg PO DAILY 10 tabs 0RF 10 days R10.32 - Left lower quadrant pain bisacodyl (Dulcolax (bisacodyl)) 10 mg (2 x 5 mg) PO BEDTIME 4 tabs 0RF 2 days Refilled rabeprazole (AcipHex) PLEASE DISREGUARD RX FOR PANTOPRAZOLE 20 mg PO BID 60 tabs 6RF K21.9 - Gastro-esophageal reflux disease without esophagitis sennosides (Senna Laxative) 34.4 mg (4 x 8.6 mg) PO BEDTIME 60 tabs 6RF K58.2 - Mixed irritable bowel syndrome rabeprazole (AcipHex) PLEASE DISREGUARD RX FOR PANTOPRAZOLE 20 mg PO BID 60 tabs 6RF K21.9 - Gastro-esophageal reflux disease without esophagitis simethicone (Gas Relief (simethicone)) 160 mg (2 x 80 mg) PO BEDTIME 30 days 60 tabs 3RF sennosides (Senna Laxative) 34.4 mg (4 x 8.6 mg) PO BEDTIME 60 tabs 6RF K58.2 - Mixed irritable bowel syndrome simethicone (Gas Relief (simethicone)) 160 mg (2 x 80 mg) PO BEDTIME 60 tabs 3RF 30 days LABS Laboratory Tests 11/24/24 01/13/25 11:41 09:59 Estimated GFR > 60 Hemoglobin A1c % 5.8 CT ABDOMEN AND PELVIS 02/08/2025 Findings: No consolidation or effusion. Numerous layering small stones or sludge within the gallbladder. No pericholecystic fluid or gallbladder wall thickening. A 1.4 cm right kidney midpole cysts. Mild nonspecific perinephric stranding. No hydronephrosis or nephrolithiasis. Remainder of the solid organs within normal limits. No bowel obstruction, pneumoperitoneum, or pneumatosis. Moderate colonic stool burden. No evidence of colonic diverticulosis or diverticulitis. Pelvic contents unremarkable. Normal appendix. The bones are intact. IMPRESSION: No acute findings. No evidence of significant diverticulosis or diverticulitis. Cholelithiasis. A 1.4 cm right kidney midpole cyst. No further follow-up is required of the cyst. ULTRASOUND OF THE RENALS BILATERAL 02/05/2025 FINDINGS: Right kidney: The right kidney measures 11.4 x 5.0 x 4.4 cm. Renal parenchymal echotexture and thickness are normal. There is a 1.7 x 1.3 x 1.0 cm cyst in the interpolar region. A tiny echogenic focus in the interpolar region could represent a nonobstructing calculus. There is no hydronephrosis. Left Kidney: The left kidney measures 4.7 x 4.4 x 3.6 cm. Renal parenchymal echotexture and thickness are normal. There are no masses. There is no hydronephrosis or renal calculi. US/US renal BI IMPRESSION: 1.7 cm right renal cyst. Possible tiny nonobstructing right renal calculus. EGD/COLONOSCOPY BIOPSY TODAYS VISIT Rob Rowe liVE He is feeling better. He feels that the flagyl helped. His stools are now formed. He is drinking a specialty for his kidney stones in his possible that he this contributed to the pain since there was some perinephric stranding on the CAT scan. However, it is also possible he had some mild diverticulitis that was resolve with the Flagyl. Return office visit in 3 months to monitor his progress. [facility] Medical History (Updated 04/01/25 @ 12:50 by BOB Jackson) LLQ abdominal pain LEVI (obstructive sleep apnea) Other and unspecified hyperlipidemia Essential hypertension Type 2 diabetes mellitus with unspecified complications Back pain LEVI on CPAP Asthma Surgical History History of cardiac cath History of esophagogastroduodenoscopy (EGD) Hx of colonoscopy History of back surgery (~10/2020) Family History Son No problems noted. Father Stomach cancer Mother Cancer Heart problem Brother Cancer Social History Household Members: Spouse Alcohol intake: never Patient Tobacco Use Status: Never used Tobacco Review of Systems Const Denies fatigue, Denies fever(s), Denies night sweats, Denies poor appetite and Denies weight loss Eyes Details: glasses Reports requires corrective lenses ENT Reports Normal hearing present, Denies dysphagia, Denies odynophagia, Denies throat swelling and Denies tongue swelling Card Reports no additional complaints Resp Reports no additional complaints GI Details: Denies abdominal pain, Denies melena, Denies bloating, Denies hematochezia, Denies constipation, Denies GI cramping, Denies dysphagia, Denies excessive flatus, Denies early satiety, Denies heartburn, Denies diarrhea, Denies nausea, Denies odynophagia, Denies vomiting and Denies hematemesis Skin/Breast Denies pruritus, Denies lesions, Denies rash and Denies jaundice Neuro Reports Normal hearing present and Denies Abnormal speech present Endo Denies fatigue Aller/Immun Denies throat swelling and Denies tongue swelling Physical Exam Vital Signs: Last Vital Signs Pulse 79 04/01/25 12:30 BP 133/75 04/01/25 12:30 Pulse Ox 98 04/01/25 12:30 Oxygen Delivery Method Room Air 04/01/25 12:30 BMI result Body Mass Index 29.8 Const General: cooperative, no acute distress, well developed and well groomed Nutritional Appearance: well nourished and overweight Orientation/consciousness: oriented to person, oriented to place and oriented to time Limitations: language barrier and ambulation with cane HEENT Head: Yes normocephalic and Yes atraumatic Eyes General: appearance normal, both eyes and all related structures Pupils: Equal, round and reactive pupils present Neck Neck: Yes normal visual inspection and Yes no lymphadenopathy Thyroid: Thyroid normal Resp Effort & Inspection: normal respiratory effort and able to speak in complete sentences Auscultation: clear to auscultation bilaterally Cardio Rate: regular rate Rhythm: regular rhythm Heart sounds: Normal, physiologic split S2 sound present Peripheral pulses: radial pulses present and posterior tibial pulses present GI Inspection: No distended, No Abdominal panniculus present and Yes obesity Palpation (GI): Soft to palpation, nontender, no guarding, not rigid and No hepatosplenomegaly present Percussion: Yes normal to percussion Auscultation: normal bowel sounds Rectal Exam - Male: Yes deferred Skin General skin exam: no rashes or lesions noted, turgor normal, skin not dry, no jaundice, No spider nevi and no striae Rashes: no rashes Nails: normal Neuro General: oriented to person, oriented to place and oriented to time Cranial nerves: Yes Equal, round and reactive pupils present and Yes Normal hearing present Speech: No Abnormal speech present Extrem General: Yes normal to inspection, No clubbing, No cyanosis and No edema Psych Appearance: grossly normal and well kempt Mental Status: mental status grossly normal Speech and movement: Normal speech and movement present Affect: normal affect Attitude: cooperative Thought process: Normal thought process present and not confabulating Thought content: Normal thought content present Insight: Limited insight present (Psych) Judgement: Limited judgement present (Psych) Results Reviewed Results Reviewed: Laboratory Tests 11/24/24 01/13/25 11:41 09:59 Estimated GFR > 60 Hemoglobin A1c % 5.8 CT ABDOMEN AND PELVIS 02/08/2025 Findings: No consolidation or effusion. Numerous layering small stones or sludge within the gallbladder. No pericholecystic fluid or gallbladder wall thickening. A 1.4 cm right kidney midpole cysts. Mild nonspecific perinephric stranding. No hydronephrosis or nephrolithiasis. Remainder of the solid organs within normal limits. No bowel obstruction, pneumoperitoneum, or pneumatosis. Moderate colonic stool burden. No evidence of colonic diverticulosis or diverticulitis. Pelvic contents unremarkable. Normal appendix. The bones are intact. IMPRESSION: No acute findings. No evidence of significant diverticulosis or diverticulitis. Cholelithiasis. A 1.4 cm right kidney midpole cyst. No further follow-up is required of the cyst. ULTRASOUND OF THE RENALS BILATERAL 02/05/2025 FINDINGS: Right kidney: The right kidney measures 11.4 x 5.0 x 4.4 cm. Renal parenchymal echotexture and thickness are normal. There is a 1.7 x 1.3 x 1.0 cm cyst in the interpolar region. A tiny echogenic focus in the interpolar region could represent a nonobstructing calculus. There is no hydronephrosis. Left Kidney: The left kidney measures 4.7 x 4.4 x 3.6 cm. Renal parenchymal echotexture and thickness are normal. There are no masses. There is no hydronephrosis or renal calculi. US/US renal BI IMPRESSION: 1.7 cm right renal cyst. Possible tiny nonobstructing right renal calculus. Assessment & Plan Assessment & Plan (1) Right sided abdominal pain: Code(s): R10.9 - Unspecified abdominal pain Category: Medical Plan MillieN #tACHIRA liVE He is feeling better. He feels that the flagyl helped. His stools are now formed. He is drinking a specialty for his kidney stones in his possible that he this contributed to the pain since there was some perinephric stranding on the CAT scan. However, it is also possible he had some mild diverticulitis that was resolve with the Flagyl. Because of the gallstones I think we should get a HIDA scan to make sure, in case the symptoms return, that this visit related to gallbladder function. The patient is agreeable. Return office visit in 3 months to monitor his progress. EGD/COLONOSCOPY BIOPSY HIDA scan Orders: Orders NM hepatobiliary w pharm Today R10.9 - Unspecified abdominal pain Coding Level of Care Code Est Pt Level 3 (08660) Diagnoses Right sided abdominal pain R10.9
[2025-04-01 12:30] VITALS: BP 133/75; PULSE 79; O2SAT 98; BMI 29.8
--- OUTSIDE RECORDS SUMMARY | 2025-04-01 14:27 | XMS_ITS | Encounter Summary ---
Author Organization [employer] Address [address] [facility] 7 [place] [address] Care Team Providers Care Operations Processor Name Role Phone Lit Khalil MD Primary Care Provide r Encounter Details Date Type Department Care Team (Latest Contact Info) Description 04/24/2019 Abstract [facility] CONVERSIONS Dental, Provider, DDS Social [...] Description 04/13/2025 11:15 AM EDT Office Visit [facility] [address] [place] [address] Lit Khalil MD [address] [place] [address] documented as of this encounter Visit Diagnoses Not on filedocumented in this encounter Care Teams Operations Processor Relationship Specialty Start Date End Date Lit Khalil MD [address] [place] [address] PCP - General Internal Medicine 08/15/15 documented as of this encounter
== END 2025-04-01 12:54 | disposition home or self-care (01) ==
LOC: HO.HGI 12:07
PROVIDERS: PCP Internal Medicine; Visit Provider Nurse Practitioner
DX: R10.9 Unspecified abdominal pain (principal)
CPT/HCPCS: 99213

== ENCOUNTER → 2025-04-01 12:07 | Outpatient (BNVA) | payer OTHER, SELFPAY | PROVIDERS: PCP Internal Medicine; Visit Provider Nurse Practitioner | DX: Z71.2 Person consulting for explanation of examination or test findings (principal); N28.1 Cyst of kidney, acquired; N20.0 Calculus of kidney | CPT/HCPCS: 99212 ==

== ENCOUNTER 2025-05-13 10:37 | Outpatient (AMB) | payer OTHER, SELFPAY ==
--- OUTSIDE RECORDS SUMMARY | 2023-11-21 04:30 | XMS_ITS ---
Author Organization [facility] Address [address] [place] [address] Care Team Providers Care Secretary Book Keeper Name Role Phone Halina Jones MD, Lit Primary Care Provide r Unavailable Black, Radha Unavailable [phone] Encounters Encounter Location Date Provider Diagnosis [facility] [address] [place] [address] 11/21/2023 Radha Jean Baptiste Plan Of Treatment No Information Progress Notes * Fadi PATTERSONDOB:1965 ( 59 yo M)Acc No.[id number]:11/21/2023 Progress Notes Patient: Fadi WHITING Provider: Daron Jean Baptiste DPM :1965 A ge:58 Y S ex:Male Date:11/21/2023 Address:[address], [id number] Pcp:Lit Jones MD Subjective: * Chief Complaints: * * Medical History: Objective: * Vitals: Assessment: Plan: * Treatment: * Images: * The named appointment provid er may or may not be the originator of this progress note, and it is not deemed complete until electronically signed by the appointment provider. Sign off status: Pending * Provider: Daron Jean Baptiste DPM Date: 0 11/21/2023 Generated for Charlette pulliam/Alvin/Shilpaitting on: 0 05/13/2025 11:16 AM EDT
[2025-05-13 10:51] VITALS: BP 130/56; PULSE 79; O2SAT 98; BMI 29.9
--- NOTE | 2025-05-13 10:51 | MHC.OFFVIS ---
Vital Signs 05/13/25 10:51 Height 5 ft 7 in Weight 190 lb 11.198 oz BMI 29.9 BP 130/56 L Blood Pressure Location Lt brachial Position Sitting Pulse 79 Pulse Source Pulse Oximeter Pulse Oximetry (%) 98 Oxygen Delivery Method Room Air Intake Visit Reasons: Asthma Information Technology Intern Required: No Allergies Penicillins (PENICILLINS) Allergy (Severe, Verified 05/13/25 10:54) HIVES HPI Comments Details: The patient is a 59-year-old gentleman known history of asthma in addition to obstructive sleep apnea. He has been followed closely by Pulmonary in the past. He has had worsening respiratory symptoms for the last few months. He has also has episodes where he feels significant chest tightness moderate severity. Usually when that happens he has a hard time breathing. He quickly needs to gives have a nebulizer treatment to improve his symptoms. He has is the symptoms are worse now in the summer, but, there also bed in the winter time in other seasons. He has not had any recent pulmonary function studies. He is not aware of having any allergy testing. He does not use inhalers but there hard for him to use. At this point will just focus on nebulized treatments to improve his respiratory capacity. Will need blood work in addition to pulmonary function studies. Patient also has sleep apnea. The sleep apnea therapy has been affecting beneficial. He does get supplies through [facility] [place]. 06/24/2023 the patient is here for a pulmonary follow-up visit. He continues to have significant daytime drowsiness. His [place] score is elevated 11/24. Has a hard time where he is gasping for air from a sound sleep. The patient does have significant daytime drowsiness and also headaches. We did review his sleep study. Appears that he spent almost an hour below 88% and desaturated down to the low 80s. This probably explains his ongoing headache. In addition to that he was tachycardic. The patient also has significant sleep apnea. He has cardiovascular risk factors. The patient understands the CPAP is a very crucial treatment for him to minimize cardiovascular disease specially since he is already having chest discomfort while sleeping and evidence of significant tachycardia and increased physiological stress. He is agreeable to start CPAP at this time. Will set him up with a local [employer] company for him to be fitted with a mask in the equipment. The patient also continues with his respiratory medications. Asthma seems to be fairly good control. 10/18/2023 the patient is here for a pulmonary follow-up visit. The patient overall feels better. He is sleeping better he is using CPAP all night. The CPAP therapy has been affecting beneficial. Although sometimes he feels nauseous with it. He had to take off his mask once because he felt like he was going to vomit. He may have been swallowing some additional air. The patient is tolerating the mask and he does not want me to touch the pressures because if he feels the working appropriately. Therefore, the patient has found benefit from it. He is also complaining of pleuritic back pain. Primarily on the right side. He does have reproducible discomfort with the muscles a very spastic in likely has muscle strain in that area. I did reassure him that this is not his lung but it is causing significant discomfort. I will send him some Flexeril meantime he is going to continue with the homeopathic therapies. If no better he can follow-up with his primary care doctor. The patient did have a chest x-ray back in the fall which was reassuring overall. 05/13/2025 the patient is here for a pulmonary follow-up visit. Overall he is doing okay. He continues uses respiratory medications as prescribed. Still having issues with the sinuses. Continues using nasal sprays as prescribed. Has a hard time sleeping. Does have issues with his neck and therefore he can not lay on his left side down in he is probably better off sleeping upright. Will go ahead and request a overnight oximetry to assess his oxygen while sleeping based on the fact that he has underlying asthma COPD. Therefore, will go ahead and request his overnight test and will follow-up in 4-6 months. If the patient demonstrates any evidence of hypoxia he would benefit from supplemental oxygen while sleeping. [facility] Medical History (Updated 04/01/25 @ 12:50 by BOB Jackson) LLQ abdominal pain LEVI (obstructive sleep apnea) Other and unspecified hyperlipidemia Essential hypertension Type 2 diabetes mellitus with unspecified complications Back pain LEVI on CPAP Asthma Surgical History History of cardiac cath History of esophagogastroduodenoscopy (EGD) Hx of colonoscopy History of back surgery (~10/2020) Family History Son No problems noted. Father Stomach cancer Mother Cancer Heart problem Brother Cancer Social History Household Members: Spouse Alcohol intake: never Patient Tobacco Use Status: Never used Tobacco Review of Systems Const Denies daytime sleepiness, Denies night sweats and Denies snoring ENT Denies change in voice, Denies lip swelling, Denies mouth pain, Reports nasal congestion, Reports nasal discharge, Reports post nasal drip, Reports sinus pain, Reports sinus pressure and Denies tongue swelling Card Denies chest pain and Reports dyspnea on exertion Resp Reports cough, Reports dyspnea on exertion, Denies snoring and Denies wheezing GI Denies abdominal pain Musc Reports abnormal gait and Reports back pain Neuro Denies Neuro-related abnormal movements and Reports abnormal gait Psych Denies no additional complaints Renato/Lymph Denies easy bleeding and Denies lymphadenopathy Aller/Immun Denies lip swelling, Denies tongue swelling and Denies wheezing Physical Exam Vital Signs: Last Vital Signs Pulse 79 05/13/25 10:51 BP 130/56 L 05/13/25 10:51 Pulse Ox 98 05/13/25 10:51 Oxygen Delivery Method Room Air 05/13/25 10:51 BMI result Body Mass Index 29.9 Const General: alert Neck Neck: Yes normal visual inspection, Yes full ROM and Yes no lymphadenopathy Chest Chest palpation & inspection: normal inspection of the chest Resp Effort & Inspection: normal respiratory effort Auscultation: diminished lung sounds Cardio Rate: regular rate Rhythm: regular rhythm Heart sounds: S1 normal heart sound present and S2 normal heart sound present GI Palpation (GI): Soft to palpation and nontender Auscultation: normal bowel sounds Skin General skin exam: rashes and/or lesions noted Assessment & Plan Assessment & Plan (1) Asthma: Code(s): J45.909 - Unspecified asthma, uncomplicated Category: Medical Qualifiers: Asthma complication type: with acute exacerbation Asthma persistence: intermittent Asthma severity: mild Qualified Code(s): J45.21 - Mild intermittent asthma with (acute) exacerbation (2) Chest pain: Code(s): R07.9 - Chest pain, unspecified Category: Medical Qualifiers: Chest pain type: unspecified Qualified Code(s): R07.9 - Chest pain, unspecified (3) Back pain: Code(s): M54.9 - Dorsalgia, unspecified Category: Medical Qualifiers: Back pain laterality: right Back pain location: low back pain Chronicity: acute Sciatica laterality: sciatica of right side Sciatica presence: with sciatica Qualified Code(s): M54.41 - Lumbago with sciatica, right side Plan stopped Symbicort due to adverse effect, thrush EKATERINA as needed overnight oximetry Claritin as needed F/U 6-8 months Orders: Orders Overnight Pulse Oximetry 05/13/25 J45.21 - Mild intermittent asthma with (acute) exacerbation Coding Level of Care Code Est Pt Level 4 (69490) Diagnoses Mild intermittent asthma with acute exacerbation J45.21 Asthma complication type: with acute exacerbation Asthma persistence: intermittent Asthma severity: mild Chest pain R07.9 Chest pain type: unspecified Acute right-sided low back pain with right-sided sciatica M54.41 Back pain laterality: right Back pain location: low back pain Chronicity: acute Sciatica laterality: sciatica of right side Sciatica presence: with sciatica Time Spent (min) 16
--- OUTSIDE RECORDS SUMMARY | 2025-05-13 11:17 | XMS_ITS | Patient Health Record ---
Author Organization [facility] Address [address] [place] [address] Care Team Providers Care Planning Intern Name Role Phone Halina Jones MD, Lit Primary Care Provide r Unavailable Sudheer Husain Unavailable [phone] Hal Herrera Unavailable Unavailable Allergies Allergen (clinical drug ingredient) Drug/Non Drug Allergy documented on EMR Reaction Allergy Type Onset Date Status Penicillin Unknown Drug Allergy Active morphine Morphine Sulfate Unknown Drug Allergy Active Reason For Referral No Information Medications Medication SIG (Take, Route, Frequency, Duration) Notes Start Date End Date Status Trazodone & Diet Manage Prod 100mg Active Nitrostat 0.4 Active Aspirin 81mg Active Nitroglycerin 0.4 Ac tive Cymbalta 30mg Active VESIcare 5mg Active Wellbutrin 150mg Act christophe Meclizine HCl 12.5mg Active ProAir HFA 90mg Acti ve MiraLax Miralax as directed-capful i n 8 ounces of water Orally once or twice a day for constipation for 30 days 12/12/2011 Active Spiriva HandiHaler 18mg Active Advair Diskus 250/50 Active Omeprazole 20mg Acti ve Namenda 5mg Active Topamax 200mg Active Multi Vitamin/Minerals Active Metoprolol Succinate 25mg Active diazePAM 2mg Active Problems Problem Type SNOMED Code ICD Code Onset Dates Problem Status W/U Status Risk Notes Problem Anemia (432484105) Unspecified anemia (285.9) Active confirmed Problem Constipation (36315121) Unspecified constipation (564.00) Active confirmed Plan Of Treatment No Information Insurance Providers Payer Name Payer Address Payer Phone Subscriber Number Group Number Insured Name Patient Relationship to Insured Coverage Start Date Coverage End Date MEDICARE OF [employer] [facility] [address] [id number] [phone] [id number] ASIF WILLIAM Self - patient is the insured MEDICAID OF [facility] [address] [place] [phone] [id number] ASIF WILLIAM Self - patient is the insured Medical (General) History Medical History History ICD Code Elevated LFT's Diverticulitis/diverticulosis irritable bowel syndrome gastroesophageal reflux asthma hypertension IDDM depression he denies any history of DC or stroke arthritis cervical radiculopathy Surgical History Surgery Date(Month/Year) foot surgery
--- OUTSIDE RECORDS SUMMARY | 2025-05-13 11:17 | XMS_ITS | Encounter Summary ---
Author Organization [facility] Address [address] [place] [address] Care Team Providers Care Director Pediatric Name Role Phone Lit Khalil MD Primary [...] filedocumented in this encounter Care Teams Director Pediatric Relationship Specialty Start Date End Date Lit Khalil MD [address] [place] [id number] PCP - General Internal Medicine 08/15/15 documented as of this encounter
--- OUTSIDE RECORDS SUMMARY | 2025-05-13 11:17 | XMS_ITS | Clinical Summary ---
Author Organization [facility] Address [address] [place] [address] Care Team Providers Care Meter Maker Name Role Phone Unavailable Primary Care Provider [...] Vaccine ( - 2023-2 5 season) 2024 Depression Screening 10/07/2024 Influenza Vaccine (#1) 2025 RSV Immunization Adult Patie nts (1 [...]
== END 2025-05-13 11:10 | disposition home or self-care (01) ==
LOC: HO.HPS 10:38
PROVIDERS: PCP Internal Medicine; Visit Provider Hospitalist
DX: J45.21 Mild intermittent asthma with (acute) exacerbation (principal); R07.9 Chest pain, unspecified; M54.41 Lumbago with sciatica, right side
CPT/HCPCS: 99214

== ENCOUNTER → 2025-05-13 10:37 | Outpatient (BNVA) | payer OTHER, SELFPAY | PROVIDERS: PCP Internal Medicine; Visit Provider Hospitalist | DX: G47.33 Obstructive sleep apnea (adult) (pediatric) (principal); J45.21 Mild intermittent asthma with (acute) exacerbation; R07.9 Chest pain, unspecified; M54.41 Lumbago with sciatica, right side | CPT/HCPCS: 99212 ==

== ENCOUNTER → 2025-05-14 10:16 | Outpatient (REF) | payer OTHER, SELFPAY ==
--- OUTSIDE RECORDS SUMMARY | 2023-11-21 04:30 | XMS_ITS ---
Author Organization [facility] Address [address] [place] [address] Care Team Providers Care [employer] Opt[employer] Technician Name Role Phone Halina Jones MD, Lit Primary Care Provide r Unavailable Black, Radha Unavailable [phone] Encounters Encounter Location Date Provider Diagnosis [facility] [address] [place] [address] 11/21/2023 Radha Jean Baptiste Plan Of Treatment No Information Progress Notes * Fadi PATTERSONDOB:1965 ( 59 yo M)Acc No.[id number]:11/21/2023 Progress Notes Patient: Fadi WHITING Provider: Daron Jean Baptiste DPM :1965 A ge:58 Y S ex:Male Date:11/21/2023 Address:[address], [address], [id number] Pcp:Lit Jones MD Subjective: * Chief Complaints: * * Medical History: Objective: * Vitals: Assessment: Plan: * Treatment: * Images: * The named appointment provid er may or may not be the originator of this progress note, and it is not deemed complete until electronically signed by the appointment provider. Sign off status: Pending * Provider: Daron Jean Baptiste DPM Date: 11/21/2023 Generated for Charlette pulliam/Alvin/Shilpaitting on: 05/14/2025 10:18 AM EDT
--- NOTE | ~2025-05-14 | NM_ITS ---
EXAMINATION: NM HEPATOBILIARY WITH PHARM HISTORY: R10.9 - Unspecified abdominal pain. TECHNIQUE: An hepatobiliary scan was performed following the intravenous administration of 5.0 mCi technetium 99m-mebrofenin. Sequential images were obtained over 1 hour. Subsequently, the patient received 1.7 microgram of IV CCK over 30 minutes and additional imaging was performed. COMPARISON: Correlation is made with a CT of the abdomen with contrast dated 02/08/2025. FINDINGS: There is normal uptake and excretion of the radiopharmaceutical by the liver. Gallbladder activity is noted at 24 minutes. Common bile duct activity is seen at 10 minutes. Small bowel activity is noted at 12 minutes. After the administration of intravenous CCK, the estimated gallbladder ejection fraction is 7%, which is abnormally low (normal 35-80%). NM/NM hepatobiliary w pharm IMPRESSION: The gallbladder ejection fraction is abnormally low at 7%, suggestive of biliary dyskinesia. Electronically signed by: Sudheer Jackson MD 05/14/2025 01:39 PM EDT
--- OUTSIDE RECORDS SUMMARY | 2025-05-14 10:19 | XMS_ITS | Clinical Summary ---
Author Organization [facility] Address [address] [place] [address] Care Team Providers Care Unit Secretary Name Role Phone Unavailable Primary Care Provider [...]
--- OUTSIDE RECORDS SUMMARY | 2025-05-14 10:19 | XMS_ITS | Patient Health Record ---
Author Organization [facility] Address [address] [place] [address] Care Team Providers Care Wedding Makeup Artist Name Role Phone Halina Jones MD, Lit Primary Care Provide r Unavailable Sudheer Husain Unavailable [phone] Hal Herrera Unavailable Unavailable Allergies Allergen (clinical [...] Status W/U Status Risk Notes Problem Anemia (073896042) Unspecified anemia (285.9) Active confirmed Problem Constipation (31694294) Unspecified constipation (564.00) Active confirmed Plan Of Treatment No Information Insurance Providers Payer Name Payer Address Payer Phone Subscriber Number Group Number Insured Name Patient Relationship to Insured Coverage Start Date Coverage End Date MEDICARE OF [employer] [facility] [address] [phone] [id number] ASIF WILLIAM Self - patient is the insured MEDICAID OF [facility] [address] [place] [address] [phone] [id number] ASIF WILLIAM Self - patient is the insured Medical (General) History Medical History History ICD Code Elevated LFT's Diverticulitis/diverticulosis irritable bowel syndrome gastroesophageal reflux asthma hypertension IDDM depression he denies any history of [place] or stroke arthritis cervical radiculopathy Surgical History Surgery Date(Month/Year) foot surgery
--- OUTSIDE RECORDS SUMMARY | 2025-05-14 10:19 | XMS_ITS | Encounter Summary ---
Author Organization [facility] [facility] Address [address] [place] [address] Care Team Providers Care Contractor Broomcorn Threshing Name Role Phone Lit Khalil MD Primary [...] on filedocumented in this encounter Care Teams Contractor Broomcorn Threshing Relationship Specialty Start Date End Date Lit Khalil MD [address] [place] [id number] PCP - General Internal Medicine 08/15/15 documented as of this encounter
== END ==
LOC: HO.NUCMED 10:16
PROVIDERS: PCP Internal Medicine; Visit Provider Nurse Practitioner
DX: R10.9 Unspecified abdominal pain (principal)
CPT/HCPCS: 78227; A9537; J2805

== ENCOUNTER → 2025-05-14 10:20 | Outpatient (BNV) | payer OTHER, SELFPAY | PROVIDERS: PCP Internal Medicine; Visit Provider Radiology Diagnostic Radiology | DX: K82.8 Other specified diseases of gallbladder (principal) | CPT/HCPCS: 78227 ==

== ENCOUNTER 2025-07-02 11:50 | Outpatient (AMB) | payer OTHER, SELFPAY ==
--- NOTE | 2025-07-02 11:54 | A.OFFVIS_ITS ---
Intake Visit Reasons: 3 MO F/U Allergies Penicillins (PENICILLINS) Allergy (Severe, Verified 05/13/25 10:54) HIVES HPI HPI 3 MO F/U: Details: Assessment & Plan (1) Right sided abdominal pain: Code(s): R10.9 - Unspecified abdominal pain Category: Medical Plan Rob #Tyrell Oliva He is feeling better. He feels that the flagyl helped. His stools are now formed. He is drinking a specialty for his kidney stones in his possible that he this contributed to the pain since there was some perinephric stranding on the CAT scan. However, it is also possible he had some mild diverticulitis that was resolve with the Flagyl. Because of the gallstones I think we should get a HIDA scan to make sure, in case the symptoms return, that this visit related to gallbladder function. The patient is agreeable. Return office visit in 3 months to monitor his progress. EGD/COLONOSCOPY BIOPSY HIDA scan 05/14/2025 FINDINGS: There is normal uptake and excretion of the radiopharmaceutical by the liver. Gallbladder activity is noted at 24 minutes. Common bile duct activity is seen at 10 minutes. Small bowel activity is noted at 12 minutes. After the administration of intravenous CCK, the estimated gallbladder ejection fraction is 7%, which is abnormally low (normal 35-80%). NM/NM hepatobiliary w pharm IMPRESSION: The gallbladder ejection fraction is abnormally low at 7%, suggestive of biliary dyskinesia. Orders: Orders NM hepatobiliary w pharm Today R10.9 - Unspecified abdominal pain TODAYS VISIT Monegasque # Pallavi oliva [facility] Medical History (Updated 07/02/25 @ 16:27 by BOB Jackson) LLQ abdominal pain LEVI (obstructive sleep apnea) Other and unspecified hyperlipidemia Essential hypertension Type 2 diabetes mellitus with unspecified complications Back pain LEVI on CPAP Asthma Surgical History History of cardiac cath History of esophagogastroduodenoscopy (EGD) Hx of colonoscopy History of back surgery (~10/2020) Family History Son No problems noted. Father Stomach cancer Mother Cancer Heart problem Brother Cancer Social History Household Members: Spouse Alcohol intake: never Patient Tobacco Use Status: Never used Tobacco Review of Systems Const Denies fatigue, Denies fever(s), Denies night sweats, Denies poor appetite and Denies weight loss ENT Reports Normal hearing present, Denies dysphagia, Denies odynophagia, Denies throat swelling and Denies tongue swelling Card Reports no additional complaints Resp Reports no additional complaints GI Details: Reports abdominal pain, Denies melena, Denies bloating, Denies hematochezia, Reports constipation, Denies GI cramping, Denies dysphagia, Denies excessive flatus, Denies early satiety, Reports heartburn, Denies diarrhea, Reports loose stools, Denies nausea, Denies odynophagia, Denies vomiting and Denies hematemesis Skin/Breast Denies pruritus, Denies lesions, Denies rash and Denies jaundice Neuro Reports Normal hearing present and Denies Abnormal speech present Endo Denies fatigue Aller/Immun Denies throat swelling and Denies tongue swelling Physical Exam Const General: cooperative, no acute distress, well developed and well groomed Nutritional Appearance: well nourished and obese Orientation/consciousness: oriented to person, oriented to place and oriented to time Limitations: language barrier and ambulation with cane HEENT Head: Yes normocephalic and Yes atraumatic Eyes General: appearance normal, both eyes and all related structures Pupils: Equal, round and reactive pupils present Neck Neck: Yes normal visual inspection and Yes no lymphadenopathy Thyroid: Thyroid normal Resp Effort & Inspection: normal respiratory effort and able to speak in complete sentences Auscultation: clear to auscultation bilaterally Cardio Rate: regular rate Rhythm: regular rhythm Heart sounds: Normal, physiologic split S2 sound present Peripheral pulses: radial pulses present and posterior tibial pulses present GI Inspection: No distended, No Abdominal panniculus present and Yes obesity Palpation (GI): Soft to palpation, Tenderness to palpation present (GI) in the LLQ, no guarding, not rigid and No hepatosplenomegaly present Percussion: Yes normal to percussion Auscultation: normal bowel sounds Rectal Exam - Male: Yes deferred Skin General skin exam: no rashes or lesions noted, turgor normal, skin not dry, no jaundice, No spider nevi and no striae Rashes: no rashes Nails: normal Neuro General: oriented to person, oriented to place and oriented to time Cranial nerves: Yes Equal, round and reactive pupils present and Yes Normal hearing present Speech: No Abnormal speech present Extrem General: Yes normal to inspection, No clubbing, No cyanosis and No edema Psych Appearance: grossly normal and well kempt Mental Status: mental status grossly normal Speech and movement: Normal speech and movement present Affect: normal affect Attitude: cooperative Thought process: Normal thought process present and not confabulating Thought content: Normal thought content present Insight: Fair insight present (Psych) and Limited insight present (Psych) Judgement: Fair judgement present (Psych) and Limited judgement present (Psych) Assessment & Plan Assessment & Plan (1) Biliary dyskinesia: Comment: HIDA scan shows 7% ejection fraction Code(s): K82.8 - Other specified diseases of gallbladder Category: Medical (2) Irritable bowel syndrome with both constipation and diarrhea: Comment: MORE CONSTIPATION DOMINANT BUT MIXED Code(s): K58.2 - Mixed irritable bowel syndrome Category: Medical Plan Monegasque # Pallavi pj His GI regimen consists of AcipHex 20 mg twice a day, senna, simethicone, and most recently we have added Creon. It would appear that his bloating and abdominal pain is related to biliary dyskinesia. HIDA scan showed an ejection fraction of only 7%! After receiving the results of the scan I sent the Creon and he did receive it and started taking it. He feels it has been very helpful with his bloating and with the pain he was experiencing that drove him to seek help. He was educated that sometimes the digestive enzymes may stop working and he may need to consider an elective cholecystectomy. We will continue to monitor him and help him make that decision if the time comes. He now has a new presentation of a cramping pain occurring in the left lower quadrant. He does not feel like this is related to constipation. It could be that the Creon is changing how his bowel functions and he is having some irritability. The pain is not severe and he has no associated fever or rectal bleeding. I think will do a trial of dicyclomine to see if we can alleviate this symptom as well. Return office visit in 5 weeks EGD/COLONOSCOPY BIOPSY Medications: New dicyclomine 10 mg PO QID 120 caps 6RF K58.2 - Mixed irritable bowel syndrome Coding Level of Care Code Est Pt Level 4 (59888) Diagnoses Biliary dyskinesia K82.8 Irritable bowel syndrome with both constipation and diarrhea K58.2 Time Spent (min) 35
--- OUTSIDE RECORDS SUMMARY | 2025-07-02 13:41 | XMS_ITS | Patient Health Record ---
Author Organization [facility] Address [address] [place] [address] Care Team Providers Care Rail Track Maintainer Name Role Phone Halina Jones MD, Lit Primary Care Provide r Unavailable Sudheer Husain Unavailable [phone] Hal Herrera Unavailable Unavailable Allergies Allergen (clinical [...] Status W/U Status Risk Notes Problem Anemia (638343160) Unspecified anemia (285.9) Active confirmed Problem Constipation (17243113) Unspecified constipation (564.00) Active confirmed Plan Of Treatment No Information Insurance Providers Payer Name Payer Address Payer Phone Subscriber Number Group Number Insured Name Patient Relationship to Insured Coverage Start Date Coverage End Date MEDICARE OF [employer] [address] [id number] ASIF WILLIAM Self - patient is the insured MEDICAID OF [facility] [address] [place] [id number] [phone] [id number] ASIF WILLIAM Self - patient is the insured Medical (General) History Medical History History ICD Code Elevated LFT's Diverticulitis/diverticulosis irritable bowel syndrome gastroesophageal reflux asthma hypertension IDDM depression he denies any history of [place] or stroke arthritis cervical radiculopathy Surgical History Surgery Date(Month/Year) foot surgery
--- OUTSIDE RECORDS SUMMARY | 2025-07-02 13:41 | XMS_ITS | Clinical Summary ---
Author Organization [facility] Address [address] [place] [address] Care Team Providers Care Vascular Ultrasound Technologist Name Role Phone Unavailable Primary Care Provider [...] 2015 Zoster Vaccines (1 of 2) 2015 Depression Screening 10/07/2024 COVID-19 Vaccine (1 - 2023-2 5 season) 2025 Influenza Vaccine (#1) 2025 RSV Immunization Adult [...]
== END 2025-07-02 12:06 | disposition home or self-care (01) ==
LOC: HO.HGI 11:51
PROVIDERS: PCP Internal Medicine; Visit Provider Nurse Practitioner
DX: K82.8 Other specified diseases of gallbladder (principal); K58.2 Mixed irritable bowel syndrome
CPT/HCPCS: 99214

== ENCOUNTER → 2025-07-02 11:50 | Outpatient (BNVA) | payer OTHER, SELFPAY | PROVIDERS: PCP Internal Medicine; Visit Provider Nurse Practitioner | DX: K82.8 Other specified diseases of gallbladder (principal); K58.2 Mixed irritable bowel syndrome | CPT/HCPCS: 99212 ==

== ENCOUNTER 2025-07-26 10:58 | Outpatient (REF) | payer OTHER, SELFPAY ==
--- OUTSIDE RECORDS SUMMARY | 2025-07-26 13:18 | XMS_ITS | Encounter Summary ---
Author Organization [employer] Address [address] [facility] 7t [place] [address] Care Team Providers Care Plastic Parts Fabricator Name Role Phone Lit Khalil MD Primary Care Provide r Encounter Details Date Type Department Care Team (Late st Contact Info) Description 02/14/2023 Abstract [facility] [address] [place] [address] [phone] Lit Khalil MD [address] [place] [address] [phone] Social History Tobacco Use Types Packs/Day Years [...] Description 08/03/2025 9:00 AM EDT Office Visit [facility] [address] [place] [address] [phone] Lit Khalil MD [address] [place], [place] [phone] documented as of this encounter Procedures Procedure Name Priority Date/Time Associated Diagnosis Comments COLONOSCOPY Routine 05/03/2020 documented in this encounter Results * Colonoscopy (05/03/2020) Colonoscopy Normal Normal 05/03/2020 Franchesca Quesada - 05/03/2020 9:13 AM EDT Recommended 5 year follow up us Historical Provider HEALTH MAINTENANCE Edited Result - Final documented in this encounter Visit Diagnoses Not on filedocumented in this encounter Care Teams Plastic Parts Fabricator Relationship Specialty Start Date End Date Lit Khalil MD [address] [place] [address] PCP - General Internal Medicine 08/15/15 documented as of this encounter
--- OUTSIDE RECORDS SUMMARY | 2025-07-26 13:18 | XMS_ITS | Encounter Summary ---
Author Organization [employer] Address [address] 7[address] [place] [address] Care Team Providers Care Diesel Tractor Engine Mechanic Name Role Phone Lit Khalil MD Primary Care Provide r Reason for Visit * Reason Comments Med Refill Encounter Details Date Type Department Care Team ([facility] Contact Info) Description 08/09/2024 Refill [facility] MED & PEDS [address] [place] [phone] Lit Khalil MD [address] [place], [place] [phone] Type 2 diabetes mellitus with diabetic polyneuropathy, without long-term current use of insulin ([facility]) Social History Tobacco Use Types Packs/Day Years [...] 08/03/2025 9:00 AM EDT Office Visit [facility] [address] [place] [address] Lit Khalil MD [address] [place] [address] documented as of this encounter Visit Diagnoses Diagnosis Type 2 diabetes mellitus with diabetic polyneuropathy, without long-term current use of insulin (HCC) documented in this encounter Additional Health Concerns Assessment Noted Time PHQ-9 Depression Total Score: 20 024 9:13 AM EDT documented as of this encounter Care Teams Diesel Tractor Engine Mechanic Relationship Specialty Start Date End Date Lit Khalil MD [address] [place] [address] PCP - General Internal Medicine 08/15/15 documented as of this encounter
--- OUTSIDE RECORDS SUMMARY | 2025-07-26 13:18 | XMS_ITS | Patient Health Record ---
Author Organization [facility] Address [address] [place] [address] Care Team Providers Care Research Professor Name Role Phone Halina Jones MD, Lit Primary Care Provide r Unavailable Sudheer Husain Unavailable [phone] Hal Herrera Unavailable Unavailable Allergies Allergen (clinical [...] Orally once or twice a day for constipation; Duration: 30 days 12/12/2011 Active Spiriva HandiHaler 18mg Active Advair Diskus 250/50 Active Omeprazole 20mg Acti ve Namenda 5mg Active Topamax 200mg Active Multi Vitamin/Minerals Active Metoprolol Succinate 25mg Active diazePAM 2mg Active Problems Problem Type SNOMED Code ICD Code Onset Dates Problem Status W/U Status Risk Notes Problem Anemia (642304361) Unspecified anemia (285.9) Active confirmed Problem Constipation (22662766) Unspecified constipation (564.00) Active confirmed Plan Of Treatment No Information Insurance Providers Payer Name Payer Address Payer Phone Subscriber Number Group Number Insured Name Patient Relationship to Insured Coverage Start Date Coverage End Date MEDICARE OF [place] [employer] [facility] [address] [id number] ASIF WILLIAM Self - patient is the insured MEDICAID OF [id number] [address] [place] [phone] [id number] ASIF WILLIAM Self - patient is the insured Medical (General) History Medical History History ICD Code Elevated LFT's Diverticulitis/diverticulosis irritable bowel syndrome gastroesophageal reflux asthma hypertension IDDM depression he denies any history of KS or stroke arthritis cervical radiculopathy Surgical History Surgery Date(Month/Year) foot surgery
--- OUTSIDE RECORDS SUMMARY | 2025-07-26 13:18 | XMS_ITS | Encounter Summary ---
Author Organization [employer] Address [address] [facility] 7 [place] [address] Care Team Providers Care Client Advisor Name Role Phone Lit Khalil MD Primary Care Provide r Encounter Details Date Type Department Care Team (Latest Contact Info) Description 04/24/2019 Abstract [facility] CONVERSIONS Dental, Provider, DDS [...] Description 08/03/2025 9:00 AM EDT Office Visit [facility]IC[facility] [address] [place] [address] Lit Khalil MD [address] [place] [address] documented as of this encounter Visit Diagnoses Not on filedocumented in this encounter Care Teams Client Advisor Relationship Specialty Start Date End Date Lit Khalil MD [address] [place] [address] PCP - General Internal Medicine 08/15/15 documented as of this encounter
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
--- OUTSIDE RECORDS SUMMARY | 2025-07-26 13:18 | XMS_ITS | Encounter Summary ---
Author Organization [employer] Address [address] [place] [address] Care Team Providers Care Substation Wireman Name Role Phone Lit Khalil MD Primary Care Provide r Reason for Visit * Reason Onset Date Comments Med Refill 07/22/2025 Encounter Details Date Type Department Care Team (Late st Contact Info) Description 07/22/2025 Refill [facility] MED & PEDS [address] [place] [address] Lit Khalil MD [address] [place], [place] [phone] Social History Tobacco Use Types Packs/Day Years [...] encounter Miscellaneous Notes * Telephone Encounter - Destinee Brown LPN - 07/22/2025 10:18 AM EDT Last seen 04/13/25 * Telephone Encounter - Izzy Jones - 07/22/2025 10:14 AM EDT TC from pt requesting medication refill. Medications needing refill : acetaminophen (Tylenol) 500 MG tablet To be sent to: [facility] - [place], [place] - [address] [facility] documented in this encounter Plan of Treatment Upcoming Encounters Date Type Department Care Team ([facility] st Contact Info) Description 08/03/2025 9:00 AM EDT Office Visit [facility] MEDICINE [address] [place] [address] Lit Khalil MD [address] [place] [address] documented as of this encounter Visit Diagnoses Not on filedocumented in this encounter Additional Health Concerns Assessment Noted Time PHQ-9 Depression Total Score: 7 12/11/19 25 9:03 AM EST documented as of this encounter Care Teams Substation Wireman Relationship Specialty Start Date End Date Lit Khalil MD [address] [place] [address] PCP - General Internal Medicine 08/15/15 documented as of this encounter
--- OUTSIDE RECORDS SUMMARY | 2025-07-26 13:18 | XMS_ITS | Clinical Summary ---
Author Organization [facility] Address [address] [place] [address] Care Team Providers Care Crew Foreman Name Role Phone Unavailable Primary Care Provider [...]
[2025-07-26 13:35] LABS: Alanine Aminotransferase 35 U/L (0-40); Albumin Level 4.7 g/dL (3.5-5.0); Alkaline Phosphatase 41 U/L (39-117); Anion Gap 14 (12-20); Aspartate Amino Transferase 39 U/L (5-37); Blood Urea Nitrogen 13 mg/dL (9-16); Calcium 9.5 mg/dL (8.4-10.2); Carbon Dioxide 28 mmol/L (22-29); Chloride 101 mmol/L (96-108); Cholesterol 180 mg/dL (<200); Estimated Glomerular Filt Rate > 60; HDL Cholesterol 30 mg/dL (>40); Potassium 4.8 mmol/L (3.3-5.1); Sodium 138 mmol/L (135-145); Total Protein 7.4 g/dL (6.5-8.0); Triglycerides 201 mg/dL (<150)
== END 2025-07-26 10:59 | disposition home or self-care (01) ==
LOC: HO.HHCL 10:58
PROVIDERS: PCP Internal Medicine; Visit Provider Internal Medicine
DX: E11.9 Type 2 diabetes mellitus without complications (principal)
CPT/HCPCS: 36415; 80053; 80061

== ENCOUNTER 2025-08-03 09:21 | Outpatient (REF) | payer OTHER, SELFPAY ==
--- OUTSIDE RECORDS SUMMARY | 2025-08-03 09:00 | XMS_ITS | Encounter Summary ---
Author Organization [employer] Address [address] [place] [address] Care Team Providers Care Legislative Aide Name Role Phone Lit Khalil MD Primary Care Provide r Encounter Details Date Type Department Care Team (Latest Contact Info) Description 08/03/2025 9:00 AM EDT Office Visit [facility] [address] [place], [place] [phone] Lit Khalil MD [address] [place], [place] [phone] Type 2 diabetes mellitus with diabetic polyneuropathy, without long-term current use of insulin (HCC) (Primary Dx); Essential hypertension; Mixed hyperlipidemia; Biliary dyskinesia; Preventative health care; Diabetic polyneuropathy associated with type 2 diabetes mellitus (HCC) Social History Tobacco Use Types Packs/Day Years [...] Sign Reading Time Taken Comments Blood Pressure 118/80 08/03/2025 9:03 AM EDT Pulse 62 08/03/2025 9:03 AM EDT Temperature 36.1 C (97 F) 08/03/2025 9:03 AM EDT Respiratory Rate 20 08/03/2025 9:03 AM EDT Oxygen Saturation 97% 08/03/2025 9:03 AM EDT Inhaled Oxygen Concentration - - Weight 88.6 kg (195 lb 6.4 oz) 08/03/2025 9:03 A M EDT Height 170.2 cm (5' 7 ) 08/03/2025 9:03 AM EDT Body Mass Index 30.6 08/03/2025 9:03 AM EDT documented in this encounter Progress Notes * Lit Jones MD - 08/03/2025 9:00 AM EDT SUBJECTIVE Sacha Patterson is a 59 y.o. male who presents for No chief complaint on file.. Sacha Patterson, 59 years Gallbladder Issues - Underwent gallbladder examination by oracle soa developer - [employer] noted abnormality in the gallbladder and prescribed medication Leg Pain - History of leg pain, previously treated with gabapentin, discontinued prior to encounter Misc - Reports of three siblings and another sibling currently ill HPI Review of Systems Constitutional: Negative for fever. HENT: Negative for sore throat. Respiratory: Negative for cough and shortness of breath. Cardiovascular: Negative for chest pain. Gastrointestinal: Negative for abdominal pain. Neurological: Negative for headaches. Allergies[1] OBJECTIVE Vitals: 08/03/25 0903 BP: 118/80 BP Location: Left arm Patient Position: Sitting BP Cuff Size: Adult Pulse: 62 Resp: 20 Temp: 97 ??F (36.1 ??C) TempSrc: Temporal SpO2: 97% Weight: 195 lb 6.4 oz (88.6 kg) Height: 5' 7 (1.702 m) Physical Exam Vitals reviewed. Constitutional: Appearance: Normal appearance. HENT: Head: Normocephalic and atraumatic. Right Ear: External ear normal. Left Ear: External ear normal. Nose: Nose normal. Mouth/Throat: Mouth: Mucous membranes are moist. Eyes: Conjunctiva/sclera: Conjunctivae normal. Cardiovascular: Rate and Rhythm: Normal rate and regular rhythm. Pulmonary: Effort: Pulmonary effort is normal. Breath sounds: Normal breath sounds. Skin: General: Skin is warm. Neurological: Mental Status: He is alert. Mental status is at baseline. Assessment/Plan Problem List Items Addressed This Visit Diabetes mellitus (HCC) - Primary Patient is here for a follow up DM controlled He is on a regimen of: Metformin 500 po daily, Most recent Hgb A1c 08/03/2025 : 6.4 Plan: Continue current regimen Eye exam was done by (telegraph operator). 06/15/2025 Dr. Petty. Microalbumin checked on: 11/18/2024 was: 31 Pt IS on an LENCHO inhibitor Foot check showed loss of sensation left side Pt advised to: adhere to diabetic diet Pt with c/o burning sensation on his feet, suggestive of neuropathy He is on Gabapentin 100 mg po TID Relevant Orders POCT Glucose (Completed) POCT Hgb A1c (Completed) Essential hypertension Patient is here for a follow up BP controlled He is on a regimen of Zestril 40 mg 1 tab po daily and Amlodipine 5 mg po daily Most recent lytes, Bun and Cr were done on: Lab Results Component Value Date NA 138 07/26/2025 NA 140 11/24/2024 K 4.8 07/26/2025 K 4.3 11/24/2024 CL 101 07/26/2025 CL 106 11/24/2024 BUN 13 07/26/2025 BUN 11 11/24/2024 CREATININE 0.92 07/26/2025 CREATININE 0.6 02/08/2025 were wnl. Plan: continue current regimen. Hyperlipidemia Patient with elevated lipids. Most recent lipid profile from: Lab Results Component Value Date TRIG 201 (H) 07/26/2025 TRIG 126 11/18/2024 CHOL 180 07/26/2025 CHOL 172 11/18/2024 LDLCHOLCAL 110 (H) 07/26/2025 LDLCHOLCAL 111 (H) 11/18/2024 HDL 30 (L) 07/26/2025 HDL 36 (L) 11/18/2024 Currently on a regimen of: atorvastatin 40 mg po q pm, Plan: Continue current regimen. Repeat Lipid profile prior to next visit advised to try to adhere to a low cholesterol diet, counseled and educated about diet and exercise,Patient encouraged to come up with a personal goal for weight loss. Biliary dyskinesia Under the care of GI Had recent imagin05/14/2025 The gallbladder ejection fraction is abnormally low at 7%, suggestive of biliary dyskinesia. Preventative health care PSA 04/16/2024 normal . Will repeat Colonoscopy with Dr. Swan normal 04/2020 Relevant Orders PSA, Screen Diabetic polyneuropathy associated with type 2 diabetes mellitus (HCC) Relevant Medications gabapentin (Neurontin) 100 MG capsule This note was drafted using Ambient (AI) technology. The patient/patient's guardian has been informed and has consented to the use of this technology: Yes No future appointments. [1] Allergies Allergen Reactions Morphine Penicillamine Penicillins Other reaction(s): Anaphylaxis due to substance documented in this encounter Miscellaneous Notes * Assessment & Plan Note - Lit Jones MD - 08/03/2025 9:15 AM EDT Associated Problem(s): Biliary dyskinesia Under the care of GI Had recent imagin05/14/2025 The gallbladder ejection fraction is abnormally low at 7%, suggestive of biliary dyskinesia. * Assessment & Plan Note - Lit Jones MD - 08/03/2025 9:01 AM EDT Associated Problem(s): Diabetes mellitus (HCC) Patient is here for a follow up DM controlled He is on a regimen of: Metformin 500 po daily, Most recent Hgb A1c 08/03/2025 : 6.4 Plan: Continue current regimen Eye exam was done by (telegraph operator). 06/15/2025 Dr. Petty. Microalbumin checked on: 11/18/2024 was: 31 Pt IS on an LENCHO inhibitor Foot check showed loss of sensation left side Pt advised to: adhere to diabetic diet Pt with c/o burning sensation on his feet, suggestive of neuropathy He is on Gabapentin 100 mg po TID * Assessment & Plan Note - Lit Jones MD - 08/03/2025 8:50 AM EDT Associated Problem(s): Preventative health care PSA 04/16/2024 normal . Will repeat Colonoscopy with Dr. Swan normal 04/2020 * Assessment & Plan Note - Lit Jones MD - 08/03/2025 8:49 AM EDT Associated Problem(s): Essential hypertension Patient is here for a follow up BP controlled He is on a regimen of Zestril 40 mg 1 tab po daily and Amlodipine 5 mg po daily Most recent lytes, Bun and Cr were done on: Lab Results Component Value Date NA 138 07/26/2025 NA 140 11/24/2024 K 4.8 07/26/2025 K 4.3 11/24/2024 CL 101 07/26/2025 CL 106 11/24/2024 BUN 13 07/26/2025 BUN 11 11/24/2024 CREATININE 0.92 07/26/2025 CREATININE 0.6 02/08/2025 were wnl. Plan: continue current regimen. * Assessment & Plan Note - Lit Jones MD - 08/03/2025 8:48 AM EDT Associated Problem(s): Hyperlipidemia Patient with elevated lipids. Most recent lipid profile from: Lab Results Component Value Date TRIG 201 (H) 07/26/2025 TRIG 126 11/18/2024 CHOL 180 07/26/2025 CHOL 172 11/18/2024 LDLCHOLCAL 110 (H) 07/26/2025 LDLCHOLCAL 111 (H) 11/18/2024 HDL 30 (L) 07/26/2025 HDL 36 (L) 11/18/2024 Currently on a regimen of: atorvastatin 40 mg po q pm, Plan: Continue current regimen. Repeat Lipid profile prior to next visit advised to try to adhere to a low cholesterol diet, counseled and educated about diet and exercise,Patient encouraged to come up with a personal goal for weight loss. documented in this encounter Plan of Treatment Scheduled Orders Name Type Priority Associated Diagnoses Orde r Schedule PSA, Screen Lab Routine Preventative health care Ordered: 08/03/2025 documented as of this encounter Procedures Procedure Name Priority Date/Time Associated Diagnosis Comments POCT GLYCATED HEMOGLOBIN, TOTAL Routine 08/03/2025 9:07 AM EDT Type 2 diabetes mellitus with diabetic polyneuropathy, without long-term current use of insulin (HCC) POCT GLUCOSE Routine 08/03/2025 9:07 AM EDT Type 2 diabetes mellitus with diabetic polyneuropathy, without long-term current use of insulin (HCC) documented in this encounter Results * (ABNORMAL) POCT Hgb A1c (08/03/2025 9:07 AM EDT) Hemoglobin A1C 6.4(A) 4.0 - 5.7 % QC Media Lot # [id number] Lot# Expiration Date , Blood 08/03/2025 9:07 AM EDT Lit Jones MD POINT OF CARE TEST EN TER/EDIT ORDERABLES Final Result * POCT Glucose (08/03/2025 9:07 AM EDT) Glucose Blood, POC 143 60 - 200 mg/dL QC Media Lot # [id number] Lot# Expiration Date 826,901 Blood Capillary blood specimen / Unknown 08/03/2025 9:07 AM EDT Lit Jones MD POINT OF CARE TEST EN TER/EDIT ORDERABLES Final Result documented in this encounter Visit Diagnoses Diagnosis Type 2 diabetes mellitus with diabetic polyneuropathy, without long-term current use of insulin (HCC)- Primary Essential hypertension Unspecified essential hypertension Mixed hyperlipidemia Biliary dyskinesia Other specified disorder of gallbladder Preventative health care Routine general medical examination at a health care facility Diabetic polyneuropathy associated with type 2 diabetes mellitus (HCC) documented in this encounter Additional Health Concerns Assessment Noted Time PHQ-9 Depression Total Score: 7 12/11/19 25 9:03 AM EST documented as of this encounter Care Teams Legislative Aide Relationship Specialty Start Date End Date Lit Khalil MD [address] [place] [id number] PCP - General Internal Medicine 08/15/15 documented as of this encounter
--- OUTSIDE RECORDS SUMMARY | 2025-08-03 10:33 | XMS_ITS | Encounter Summary ---
Author Organization [employer] Address [address] [place] [address] Care Team Providers Care Cleaner Carpet And Upholstery Name Role Phone Lit Khalil MD Primary [...] on filedocumented in this encounter Care Teams Cleaner Carpet And Upholstery Relationship Specialty Start Date End Date Lit Khalil MD [address] [place] [id number] PCP - General Internal Medicine 08/15/15 documented as of this encounter
--- OUTSIDE RECORDS SUMMARY | 2025-08-03 10:33 | XMS_ITS | Encounter Summary ---
Author Organization [employer] Address [address] [facility] [address] [place] [address] Care Team Providers Care Oracle Applications Developer Name Role Phone Lit Khalil MD Primary Care Provide r Encounter Details Date Type Department Care Team (Latest Contact Info) Description 08/03/2025 Travel Social History Tobacco Use Types Packs/Day [...] documented as of this encounter Care Teams Oracle Applications Developer Relationship Specialty Start Date End Date Lit Khalil MD [address] [place] [id number] PCP - General Internal Medicine 08/15/15 documented as of this encounter
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
--- OUTSIDE RECORDS SUMMARY | 2025-08-03 10:34 | XMS_ITS | Encounter Summary ---
Author Organization [employer] Address [address] [facility] [place] [address] Care Team Providers Care Optical Dispenser Name Role Phone Lit Khalil MD Primary Care Provide r Encounter Details Date Type Department Care Team ([facility] st Contact Info) Description 02/14/2023 Abstract [facility] [address] [place], [place] [phone] Lit Khalil MD [address] [place], [place] [phone] Social History Tobacco Use Types Packs/Day Years [...] on filedocumented in this encounter Care Teams Optical Dispenser Relationship Specialty Start Date End Date Lit Khalil MD [address] [place] [address] PCP - General Internal Medicine 08/15/15 documented as of this encounter
--- OUTSIDE RECORDS SUMMARY | 2025-08-03 10:34 | XMS_ITS | Clinical Summary ---
Author Organization [facility] Address [address] [place] [address] Care Team Providers Care Plain Goods Hemmer Name Role Phone Unavailable Primary Care Provider [...]
--- OUTSIDE RECORDS SUMMARY | 2025-08-03 10:34 | XMS_ITS | Encounter Summary ---
Author Organization [employer] Address [address] [facility] [address] [place] [address] Care Team Providers Care Thermal Cutting Machine Operator Name Role Phone Lit Khalil MD Primary Care Provide r Reason for Visit * Reason Comments Med Refill Encounter Details Date Type Department Care Team ([facility] st Contact Info) Description 08/09/2024 Refill [facility] [address] [place] [phone] Lit Khalil MD [address] [place], [place] [phone] Type 2 diabetes mellitus with diabetic polyneuropathy, without long-term current use of insulin ([facility]) Social History Tobacco Use Types Packs/Day [...] documented as of this encounter Care Teams Thermal Cutting Machine Operator Relationship Specialty Start Date End Date Lit Khalil MD [address] [place] [phone] PCP - General Internal Medicine 08/15/15 documented as of this encounter
== END 2025-08-03 09:22 | disposition home or self-care (01) ==
LOC: HO.HHCL 09:21
PROVIDERS: PCP Internal Medicine; Visit Provider Internal Medicine
DX: Z00.00 Encounter for general adult medical examination without abnormal findings (principal); Z12.5 Encounter for screening for malignant neoplasm of prostate
CPT/HCPCS: 36415; 84153

== ENCOUNTER 2025-08-11 08:47 | Day surgery (SDC) | payer OTHER, SELFPAY ==
--- OUTSIDE RECORDS SUMMARY | 2025-07-13 15:04 | XMS_ITS | Encounter Summary ---
Author Organization [employer] Address [address] [facility] 7t [place] [address] Care Team Providers Care Restaurant Operations Manager Name Role Phone Lit Khalil MD Primary Care Provide r Encounter Details Date Type Department Care Team (Late st Contact Info) Description 02/14/2023 Abstract [facility] MEDICINE [address] [place] [address] [phone] Lit Khalil MD [address] [place] [address] [phone] Social History Tobacco Use Types Packs/Day Years [...] Care Team (Late st Contact Info) Description 08/03/2025 9:00 AM EDT Office Visit [facility] [address] [place] [address] [phone] Lit Khalil MD [address], [place] [phone] documented as of this encounter Procedures Procedure Name Priority Date/Time Associated Diagnosis Comments COLONOSCOPY Routine 05/03/2020 documented in this encounter Results * Colonoscopy (05/03/2020) Colonoscopy Normal Normal 05/03/2020 Franchesca Quesada - 05/03/2020 9:13 AM EDT Recommended 5 year follow up us Historical Provider HEALTH MAINTENANCE Edited Result - Final documented in this encounter Visit Diagnoses Not on filedocumented in this encounter Care Teams Restaurant Operations Manager Relationship Specialty Start Date End Date Lit Khalil MD [address] [place] [address] PCP - General Internal Medicine 08/15/15 documented as of this encounter
--- OUTSIDE RECORDS SUMMARY | 2025-07-13 15:04 | XMS_ITS | Encounter Summary ---
Author Organization [employer] Address [address] [facility] 7t [place] [address] Care Team Providers Care Applications Development Analyst Name Role Phone Lit Khalil MD Primary Care Provide r Encounter Details Date Type Department Care Team (Latest Contact Info) Description 04/24/2019 Abstract [facility] CONVERSIONS Dental, Provider, DDS Social History [...] Description 08/03/2025 9:00 AM EDT Office Visit [facility] MED[facility]INE [address] [place] [address] Lit Khalil MD [address] [place] [address] documented as of this encounter Visit Diagnoses Not on filedocumented in this encounter Care Teams Applications Development Analyst Relationship Specialty Start Date End Date Lit Khalil MD [address] [place] [address] PCP - General Internal Medicine 08/15/15 documented as of this encounter
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
--- OUTSIDE RECORDS SUMMARY | 2025-07-13 15:04 | XMS_ITS | Clinical Summary ---
Author Organization [facility] Address [address] [place] [address] Care Team Providers Care Simulation Engineer Name Role Phone Unavailable Primary Care Provider [...]
--- OUTSIDE RECORDS SUMMARY | 2025-07-13 15:04 | XMS_ITS | Patient Health Record ---
Author Organization [facility] Address [address] [place] [address] Care Team Providers Care Marriage Therapist Name Role Phone Halina Jones MD, Lit Primary Care Provide r Unavailable Sudheer Husain Unavailable [phone] Hal Herrera Unavailable Unavailable Allergies Allergen (clinical drug ingredient) Drug/Non Drug Allergy documented on EMR Reaction Allergy Type Onset Date Status Penicillin Unknown Drug Allergy Active Morphine Sulfate Unknown Drug Allergy Active Reason [...] Status W/U Status Risk Notes Problem Anemia (107834363) Unspecified anemia (285.9) Active confirmed Problem Constipation (62433231) Unspecified constipation (564.00) Active confirmed Plan Of Treatment No Information Insurance Providers Payer Name Payer Address Payer Phone Subscriber Number Group Number Insured Name Patient Relationship to Insured Coverage Start Date Coverage End Date MEDICARE OF [employer] [address] [place] [id number] ASIF WILLIAM Self - patient is the insured MEDICAID OF [facility] [address] [place] [phone] [id number] ASIF WILLIAM Self - patient is the insured Medical (General) History Medical History History ICD Code Elevated LFT's Diverticulitis/diverticulosis irritable bowel syndrome gastroesophageal reflux asthma hypertension IDDM depression he denies any history of IA or stroke arthritis cervical radiculopathy Surgical History Surgery Date(Month/Year) foot surgery
--- OUTSIDE RECORDS SUMMARY | 2025-07-13 15:04 | XMS_ITS | Encounter Summary ---
Author Organization [employer] Address [address] 7[address] [place] [address] Care Team Providers Care Ice House Supervisor Name Role Phone Lit Khalil MD Primary Care Provide r Reason for Visit * Reason Comments Med Refill Encounter Details Date Type Department Care Team ([facility] Contact Info) Description 08/09/2024 Refill [facility]S [address] [place] [phone] Lit Khalil MD [address] [place], [place] [phone] Type 2 diabetes mellitus with diabetic polyneuropathy, without long-term current use of insulin ([facility]) Social History Tobacco Use Types Packs/Day [...] Description 08/03/2025 9:00 AM EDT Office Visit [facility] [address] [place] [address] Lit Khalil MD [address] [place] [address] documented as of this encounter Visit Diagnoses Diagnosis Type 2 diabetes mellitus with diabetic polyneuropathy, without long-term current use of insulin (HCC) documented in this encounter Additional Health Concerns Assessment Noted Time PHQ-9 Depression Total Score: 20 024 9:13 AM EDT documented as of this encounter Care Teams Ice House Supervisor Relationship Specialty Start Date End Date Lit Khalil MD [address] [place] [address] PCP - General Internal Medicine 08/15/15 documented as of this encounter
--- NOTE | 2025-08-09 14:00 | HO.ANESPROP2 ---
Documented by User: Josefa Delaney NP 08/09/25 14:16 HPI - Anesthesia Eval Consult details Narrative: 59 yr old male for Upper Endoscopy and Colonoscopy Asthma: follows [facility] [place], using nebulizer/rescue inhaler only LEVI: on CPAP; 05/2025 pulmo visit discussed possible O2 therapy at night pending testing. PMF Active Problems Active Problems: All Active Problems Biliary dyskinesia (Acute) Right sided abdominal pain (Acute) Vertigo (Acute) Sinusitis (Acute) Early satiety (Acute) Nausea (Acute) LEVI (obstructive sleep apnea) (Acute) History of cardiac cath (Acute) Other and unspecified hyperlipidemia (Acute) Essential hypertension (Acute) Type 2 diabetes mellitus with unspecified complications (Acute) Abnormal nuclear stress test (Acute) Precordial chest pain (Acute) Abdominal bloating (Acute) Chronic pain (Acute) Post-laminectomy syndrome (Acute) Disc degeneration, lumbar (Acute) DISH (diffuse idiopathic skeletal hyperostosis) (Acute) Tubular adenoma of colon (Acute) Irritable bowel syndrome with both constipation and diarrhea (Acute) GERD (gastroesophageal reflux disease) (Acute) Back pain (Acute) LEVI on CPAP (Acute) Asthma (Acute) Constipation (Acute) Past Medical History Medical History DISH (diffuse idiopathic skeletal hyperostosis) IBS (irritable bowel syndrome) GERD (gastroesophageal reflux disease) LLQ abdominal pain Other and unspecified hyperlipidemia Essential hypertension Type 2 diabetes mellitus with unspecified complications Back pain LEVI on CPAP Asthma Family History Family History Son No problems noted. Father Stomach cancer Mother Cancer Heart problem Brother Cancer Surgical History Surgical History History of cardiac cath History of esophagogastroduodenoscopy (EGD) Hx of colonoscopy History of back surgery (~10/2020) Social History Social History Household Members: Spouse Are you a primary clinical manager home care to a significant other at home: No Do you presently have visiting nurse or other home services: No Alcohol intake: never Patient Tobacco Use Status: Never used Tobacco Have you been hit, kicked, punched, or otherwise hurt by someone within the past year? If so, by whom?: No Advance Directives: No Advance Directives Information Provided: Yes Meds Allergies Allergy/AdvReac Type Severity Reaction Status Date / Time Penicillins (PENICILLINS) Allergy Severe HIVES Verified 08/11/25 10:04 Home Medications ?Medication ?Instructions ?Recorded ?Confirmed ?Last Taken ?Type bupropion HCl 300 mg 24 hr tablet, 300 mg PO QAM 08/01/20 08/11/25 Unknown History extended release lorazepam 0.5 mg tablet 0.5 mg PO BID PRN Anxiety 08/01/20 08/11/25 Unknown History trazodone 100 mg tablet 100 mg PO BEDTIME 08/01/20 08/11/25 Unknown History albuterol sulfate 90 mcg/actuation 2 inh inhalation Q8H 03/28/21 08/11/25 Unknown History aerosol inhaler amlodipine 5 mg tablet 5 mg PO DAILY 06/21/21 08/11/25 08/11/25 History atorvastatin 40 mg tablet 40 mg PO BEDTIME 06/21/21 08/11/25 Unknown History lisinopril 40 mg tablet 40 mg PO DAILY 12/21/21 08/11/25 Unknown History metformin 500 mg tablet 500 mg PO DAILY 01/12/25 08/11/25 Unknown History Exam Narrative Narrative: EKG 2023 Vent. Rate : 111 BPM Atrial Rate : 111 BPM P-R Int : 312 ms QRS Dur : 084 ms QT Int : 320 ms P-R-T Axes : 000 178 116 degrees QTc Int : 435 ms Suspect limb lead reversal, interpretation assumes no reversal Normal sinus rhythm with Premature atrial complexes Right axis deviation Abnormal ECG When compared with ECG of 08-SEP-2020 09:28, QRS axis Shifted right Cardiac Cath 2021 Normal systemic pressures Normal LV end-diastolic pressures No significant gradient pullback on aortic valve. The coronary arteries are angiographically normal. Documented by User: Zaria Edward MD 08/11/25 10:28 PMFSH Past Medical History Medical History DISH (diffuse idiopathic skeletal hyperostosis) IBS (irritable bowel syndrome) GERD (gastroesophageal reflux disease) LLQ abdominal pain Other and unspecified hyperlipidemia Essential hypertension Type 2 diabetes mellitus with unspecified complications Back pain LEVI on CPAP Asthma Family History Family History Son No problems noted. Father Stomach cancer Mother Cancer Heart problem Brother Cancer Surgical History Surgical History History of cardiac cath History of esophagogastroduodenoscopy (EGD) Hx of colonoscopy History of back surgery (~10/2020) History of Problems with Anesthesia: No Social History Social History Household Members: Spouse Are you a primary clinical manager home care to a significant other at home: No Do you presently have visiting nurse or other home services: No Alcohol intake: never Patient Tobacco Use Status: Never used Tobacco Have you been hit, kicked, punched, or otherwise hurt by someone within the past year? If so, by whom?: No Advance Directives: No Advance Directives Information Provided: Yes Meds Allergies Allergy/AdvReac Type Severity Reaction Status Date / Time Penicillins (PENICILLINS) Allergy Severe HIVES Verified 08/11/25 10:04 Home Medications ?Medication ?Instructions ?Recorded ?Confirmed ?Last Taken ?Type bupropion HCl 300 mg 24 hr tablet, 300 mg PO QAM 08/01/20 08/11/25 Unknown History extended release lorazepam 0.5 mg tablet 0.5 mg PO BID PRN Anxiety 08/01/20 08/11/25 Unknown History trazodone 100 mg tablet 100 mg PO BEDTIME 08/01/20 08/11/25 Unknown History albuterol sulfate 90 mcg/actuation 2 inh inhalation Q8H 03/28/21 08/11/25 Unknown History aerosol inhaler amlodipine 5 mg tablet 5 mg PO DAILY 06/21/21 08/11/25 08/11/25 History atorvastatin 40 mg tablet 40 mg PO BEDTIME 06/21/21 08/11/25 Unknown History lisinopril 40 mg tablet 40 mg PO DAILY 12/21/21 08/11/25 Unknown History metformin 500 mg tablet 500 mg PO DAILY 01/12/25 08/11/25 Unknown History Exam Airway Mallampati Class: III TM Dist: >3cm Neck ROM: Full Denture: Upper Loose/Missing/Broken Teeth: Yes, Upper and Lower Heart: RRR Lungs: CTA Assessment and Plan Assessment Anesthesia Assessment: Anesthesia Plan Discussed and Chart Reviewed Final Anesthetic Review History of Problems with Anesthesia: No NPO: Yes ASA Class: III Final Preanesthetic Review: Meds/Allgs Chart Reviewed, Consent Obtained/Reviewed and Anes Risks/Benef Reviewed Patient Risk: Intermediate Procedure Risk: Intermediate Anesthetic Plan Anesthetic Plan: MAC: Disposition: Standard PACU
[2025-08-09 14:10] VITALS: BMI 29.9
[2025-08-11] MEDS: Lactated Ringers 1,000 ML 100 ML IVCONT (10:01)
[2025-08-11 10:03] LABS: Glucose, Whole Blood 108 mg/dL (60-115)
[2025-08-11 10:37] VITALS: BP 161/82; PULSE 73; RESP 18; TEMP 36.3; O2SAT 98
--- NOTE | 2025-08-11 10:54 | MHC.SHP ---
Pre-Procedural Eval Section A - 24 Hr Update-Section A only Date of Service: 08/11/25 Section B - Complete if H&P > 30 days Chief Complaint: gerd,pain,benign neoplasm of colon Relevant Family History (Specify if Yes): No Relevant Social History: None Present Medications: see Short Stay Collaborative assessment Medical History: Significant History (DISH (diffuse idiopathic skeletal hyperostosis) IBS (irritable bowel syndrome) GERD (gastroesophageal reflux disease) LLQ abdominal pain Other and unspecified hyperlipidemia Essential hypertension Type 2 diabetes mellitus with unspecified complications Back pain LEVI on CPAP Asthma) History of Previous Operations: Relevant previous surgery/procedure and date(s) ( History of cardiac cath History of esophagogastroduodenoscopy (EGD) Hx of colonoscopy History of back surgery (~10/2020)) Allergies: Allergies Allergy/AdvReac Type Severity Reaction Status Date / Time Penicillins (PENICILLINS) Allergy Severe HIVES Verified 08/11/25 10:04 Review of Systems Sugical H&P ROS: Negative: Constitution, Cardiovascular, Respiratory, Neurological, Psychiatric, Hem-Onc, Allergic/Immunologic, Gastrointestinal, Genitourinary, Musculoskeletal, Integumentary, Endocrine and Eyes/Ears/Nose/Throat Exam Surgical H&P Exam: Normal: HEENT, Normal: Heart, Normal: Lungs, Normal: Extremities, Normal: Abdomen, Normal: Skin and Normal: Neurological Plan Diagnosis/Plan: Unchanged I have reviewed the history and physical and performed a pertinent physical examination on my patient. No changes have occurred unless specified. Time Spent With Patient Time: Total time managing care of this patient today ____ minutes.
--- NOTE | 2025-08-11 11:33 | HO.OPN-COLON ---
Colonoscopy Operative Note Operative Note Date of Service: 08/11/25 Narrative: Operative Information Procedure Description: EGD, Colonoscopy Indication: GERD, screening Anesthesia: MAC FLEXIBLE TRANSORAL UPPER GASTROINTESTINAL ENDOSCOPY AND COLONOSCOPY PROCEDURE NOTE UPPER ENDOSCOPY Consent: Indications for the procedure and potential complications of bleeding, perforation, reaction to medications and missed diagnosis were discussed with the patient and informed consent was obtained. Instrument: Olympus GIF H 190 J mid size upper endoscope Monitoring: Vital signs and clinical assessment, continuous EKG monitoring, Pulse oximetry, Carbon Dioxide monitoring and blood pressure monitoring were done throughout the procedure. Procedure: The patient was placed in the left lateral decubitis position and pre-procedure medications were administered and a bite block was placed. The endoscope was inserted into the mouth and advanced under direct vision to the third part of duodenum. A careful inspection was made as the upper endoscope was withdrawn including a retroflexed examination of the proximal stomach; Findings and interventions are described below. Findings: Larynx:normal Esophagus: GE junction at 38 cm, diaphragm hiatus at 38 cm, normal mucosa- bx taken from distal and proximal esophagus, balloon dilation to 20 mm at LES and UES< no tears seen Stomach: Mild gastritis. Biopsies were obtained. Grade 2 flap valve on retroflexed examination of the cardia. Duodenum: Normal bulb and descending duodenum, bx taken Intervention: Biopsies as noted above, COLONOSCOPY Instrument: Olympus variable stiffness pediatric scope 190L Colonoscopy Monitoring: Vital signs and clinical assessment, continuous EKG monitoring, Pulse oximetry, Carbon Dioxide monitoring and blood pressure monitoring were done throughout the procedure. Colon withdrawal time was 12 minutes. Procedure: The patient was placed in the left lateral decubitis position and pre-procedure medications were administered. After a digital rectal examination of the ano-rectum, the video colonoscope was inserted into the rectum and advanced through the colon to the cecum/TI. The colonoscope was slowly withdrawn in a retrograde panoramic fashion and the colon mucosa was carefully examined including a retroflexed view of the rectum. Findings and interventions are described below. Procedure Difficulty:moderate Findings: Terminal Ileum-normal Cecum:normal Ascending Colon: moderate severe diverticulosis Transverse Colon -normal Descending Colon:normal Sigmoid Colon: moderate severe diverticulosis Rectum: Retroflexion with small internal hemorrhoids, grade I Anorectum - normal Colon preparation: [place] Bowel Preparation Scale Right colon; 1 Transverse colon: 2 Left colon; 2 (0 = Unprepared colon segment with mucosa not seen due to solid stool that cannot be cleared. 1 = Portion of mucosa of the colon segment seen, but other areas of the colon segment not well seen due to staining, residual stool and/or opaque liquid. 2 = Minor amount of residual staining, small fragments of stool and/or opaque liquid, but mucosa of colon segment seen well. 3 = Entire mucosa of colon segment seen well with no residual staining, small fragments of stool or opaque liquid) Impression and Post Procedure Diagnosis: Endoscopy Findings: gastritis Colonoscopy Findings: diverticulosis internal hemorrhoids Plan: Await Pathology results Repeat Colonoscopy in 6-12 months due to sub optimal right sided prep or earlier if clinically indicated High fiber diet leaflet avoid straining at stool, epsom salts and sitz bath, anusol supps or cream Above findings were reviewed with the patient and relevant handouts were provided if indicated.
[2025-08-11 11:35] VITALS: BP 103/63; PULSE 71; RESP 18; TEMP 36.1; O2SAT 100
[2025-08-11 11:50] VITALS: BP 103/68; PULSE 68; RESP 16; TEMP 36.1; O2SAT 97
== END 2025-08-11 12:41 | disposition home or self-care (01) ==
PROVIDERS: PCP Internal Medicine; Visit Provider Internal Medicine Gastroenterology
PROC: (CPT 43239; principal; 2025-08-11 11:10)
DX: Z12.11 Encounter for screening for malignant neoplasm of colon (principal); Z86.0101 Personal history of adenomatous and serrated colon polyps; R10.9 Unspecified abdominal pain; K82.8 Other specified diseases of gallbladder; K58.2 Mixed irritable bowel syndrome; K64.0 First degree hemorrhoids; K57.30 Diverticulosis of large intestine without perforation or abscess without bleeding; K29.70 Gastritis, unspecified, without bleeding
CPT/HCPCS: 43239; 43245; G0105; 82947; 88305; 88342; C1726; J2003; J2704

== ENCOUNTER → 2025-08-11 08:47 | Outpatient (BNV) | payer OTHER, SELFPAY | PROVIDERS: PCP Internal Medicine; Visit Provider Internal Medicine Gastroenterology | DX: Z12.11 Encounter for screening for malignant neoplasm of colon (principal); K57.90 Diverticulosis of intestine, part unspecified, without perforation or abscess without bleeding; K64.0 First degree hemorrhoids; K21.9 Gastro-esophageal reflux disease without esophagitis; R13.10 Dysphagia, unspecified; K29.70 Gastritis, unspecified, without bleeding | CPT/HCPCS: 43239; 43249; G0121 ==